=== PATIENT | male | born 1985 | race Two or more races ===

== ENCOUNTER 2020-10-03 15:07 | Outpatient (REF) | payer MEDICARE, MEDICAID, SELFPAY | END 2020-10-03 15:08 | disposition home or self-care (01) | LOC: HO.LAB 15:07 | PROVIDERS: Visit Provider Internal Medicine | DX: Z20.828 Contact with and (suspected) exposure to other viral communicable diseases (principal) | CPT/HCPCS: C9803; U0003 ==

== ENCOUNTER 2021-03-28 04:49 | Emergency (ER) | payer MEDICARE, MEDICAID, SELFPAY ==
[2021-03-28 06:02] VITALS: BP 163/95; PULSE 96; RESP 20; TEMP 36.4; O2SAT 98; BMI 37.5
--- NOTE | 2021-03-28 06:58 | ECG_ITS ---
Test Reason : CP Blood Pressure : / mmHG Vent. Rate : 099 BPM Atrial Rate : 099 BPM P-R Int : 174 ms QRS Dur : 092 ms QT Int : 358 ms P-R-T Axes : 048 009 034 degrees QTc Int : 459 ms Poor data quality, interpretation may be adversely affected Normal sinus rhythm Normal ECG No previous ECGs available Referred By: Scarlett Shelley Electronically Signed By:CLAIRE JANE MD
--- NOTE | 2021-03-28 07:22 | PC.NURSE ---
LATE ENTRY DUE TO DOWNTIME: PT LEFT AFTER EKG WAS COMPLETED. 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 ENCOURAGED TO STAY FOR EVAL. PT DECLINED.
== END 2021-03-28 07:25 | disposition left against medical advice (07) ==
PROVIDERS: Emergency Provider Emergency Medicine
DX: R06.00 Dyspnea, unspecified (principal)
CPT/HCPCS: 93005; 99282; 99283

== ENCOUNTER 2021-03-29 05:24 | Emergency (ER) | payer MEDICARE, MEDICAID, SELFPAY | END 2021-03-29 06:17 | disposition left against medical advice (07) | PROVIDERS: Emergency Provider Emergency Medicine | DX: Z02.79 Encounter for issue of other medical certificate (principal) ==

== ENCOUNTER 2021-03-29 21:13 | Emergency (ER) | payer MEDICARE, MEDICAID, SELFPAY ==
--- NOTE | 2021-03-29 21:32 | PC.NURSE ---
PT ENTERED TRIAGE ON CELLPHONE, WHEN OFF CALL SAT DOWN AND STATED TO THIS RN I WANT SOME LAB TESTS AND AN EKG THIS RN INQUIRED WHAT HE WAS CONCERNED ABOUT OR LOOKING FOR WITH THE TESTS, PT THEN AGGRESSIVELY STOOD UP, STATED BECAUSE I WANT THEM, WHAT YOU DONT DO THAT, WHATEVER I'M LEAVING PT THEN AMBULATED OUT OF ED WITH EVEN STEADY GAIT.
== END 2021-03-29 21:49 | disposition left against medical advice (07) ==
LOC: HO.ED 21:47
PROVIDERS: Emergency Provider Emergency Medicine
DX: R68.89 Other general symptoms and signs (principal)

== ENCOUNTER 2021-10-14 20:26 | Emergency (ER) | payer MEDICARE, MEDICAID, SELFPAY | END 2021-10-14 23:07 | disposition left against medical advice (07) | PROVIDERS: Emergency Provider Emergency Medicine | DX: R10.9 Unspecified abdominal pain (principal) ==

== ENCOUNTER 2022-08-23 21:31 | Emergency (ER) | payer MEDICARE, MEDICAID, SELFPAY ==
[2022-08-23 21:37] VITALS: PULSE 78; RESP 18; TEMP 36.1; O2SAT 95
--- NOTE | 2022-08-23 21:40 | PC.NURSE ---
patient refused blood pressure because the cuff hurts his arm. patient is restless in triage.
== END 2022-08-23 22:40 | disposition left against medical advice (07) ==
PROVIDERS: Emergency Provider Emergency Medicine
DX: R60.0 Localized edema (principal)
CPT/HCPCS: 99281

== ENCOUNTER 2022-12-01 12:05 | Emergency (ER) | payer MEDICARE, MEDICAID, SELFPAY ==
--- NOTE | ~2022-12-01 | CT_ITS ---
EXAMINATION: CT ANGIOGRAM OF THE CHEST WITH AND WITHOUT CONTRAST (CT PULMONARY ANGIOGRAM FOR PULMONARY EMBOLISM CLINICAL INFORMATION: Reason for Exam elevated d dimer, sob/cp COMPARISON: X-ray 12/01/2022 TECHNIQUE: Prior to contrast administration, noncontrast localization images were obtained. Subsequently, multidetector volumetric imaging was performed from the thoracic inlet to below the diaphragms following the administration of 65 mL Omnipaque 350 intravenous contrast. No contrast reaction reported Sagittal, coronal, and MIP oblique sagittal reformatted images were obtained on the CT workstation, uploaded to PACS, and reviewed. This CT examination was performed using dose optimization techniques as appropriate, variously including the following: *Automated exposure control *Adjustment of mA and/or kV according to patient size (this includes techniques or standardized protocols for targeted exams where dose is matched to indication/reason for exam; i.e. extremities or head) *Use of iterative reconstruction technique Total exam dose-length product 664 mGy-cm FINDINGS: QUALITY OF STUDY/CONTRAST BOLUS: Slightly suboptimal. PULMONARY ARTERIES: No evidence of obvious filling defects in the central or proximal segmental filling defects to suggest significant pulmonary emboli. THORACIC AORTA: No aneurysm or dissection. LUNG: Patchy airspace opacities, predominantly in the posterior aspect of bilateral lower lobes, could represent atelectasis or inflammatory/infectious process. There are scattered sub-5 mm pulmonary nodules seen. For example, 2 mm nodule lingula, 7:280; 2 mm nodule right upper lobe 2: 168. PLEURA: Trace bilateral pleural effusion. No pneumothorax. MEDIASTINUM: Normal heart size. No pericardial effusion. No hilar or mediastinal lymphadenopathy. No evidence of septal bowing or right heart strain. CORONARY ARTERY CALCIFICATION: None visualized on this study. CHEST WALL/AXILLA: No axillary or internal mammary lymphadenopathy. OSSEOUS STRUCTURES: No acute or suspicious osseous abnormality. UPPER ABDOMEN: Unremarkable. No reflux of contrast into the hepatic veins to suggest elevated right heart pressures. CT/CT angio chest PE protocol IMPRESSION: 1. Slightly suboptimal opacification of the pulmonary arteries. No evidence of significant pulmonary emboli in the central or proximal subsegmental vessels. 2. Airspace opacities in bilateral lower lobes, could represent atelectasis, inflammatory or infectious process. 3. Scattered sub-5 mm pulmonary nodules. According to the UPDATED 2017 Fleischner Society recommendations, the advised follow-up imaging for solid nodules < 6 mm is: LOW RISK PATIENT: No routine follow-up. HIGH RISK PATIENT: Optional CT at 12 months. 4. Trace bilateral pleural effusions. VTE: negative
--- NOTE | ~2022-12-01 | XR_ITS ---
EXAMINATION: XR chest 2V CLINICAL INFORMATION: Reason for Exam cp/sob COMPARISON: Chest radiograph 02/22/2019 TECHNIQUE: 2 views of the chest FINDINGS: Trace bilateral pleural effusions with streaky bibasilar airspace opacities. No pneumothorax. Normal cardiomediastinal silhouette. XR/XR chest 2V IMPRESSION: * Trace bilateral pleural effusions with streaky bibasilar airspace opacities, possibly reflective of atelectasis with superimposed developing infection or aspiration not excluded.
--- NOTE | 2022-12-01 12:26 | ED.SOB ---
HPI - SOB/Dyspnea General Chief Complaint: General Medical <ELIF Grullon - Last Filed: 12/01/22 12:30> Stated Complaint: Fast heart beat/Hole in heart? <ELIF Grullon - Last Filed: 12/01/22 12:30> Time Seen by Provider: 12/01/22 13:40 <ELIF Grullon - Last Filed: 12/01/22 12:30> Source: patient <Radhika Dejesus NP - Last Filed: 12/01/22 16:28> Mode of arrival: ambulatory <Radhika Dejesus NP - Last Filed: 12/01/22 16:28> Limitations: no limitations <Radhika Dejesus NP - Last Filed: 12/01/22 16:28> History of Present Illness HPI Narrative: 37 yo male with history of bipolar disorder Here with some difficulty breathing for the last 5 or 6 days. this is associated with cough. He was seen a doctor while he was in [place] and per patient he was diagnosed with a hole in the lung. he tells me he was not given any recommendations or treatments for this. He returns today as he has continued difficulty breathing and now has some chest pain with deep breathing and palpitations which began today. No fevers, leg swelling or leg pain. Patient flew 8 hrs home from [place] 3 days ago <Radhika Dejesus NP - Last Filed: 12/01/22 16:28> Related Data Home Medications: Previous Rx's Medication Instructions Recorded doxycycline monohydrate 100 mg 100 mg PO BID #20 tabs 12/01/22 tablet <ELIF Grullon Last Filed: 12/01/22 12:30> Allergies/Adverse Reactions: Allergies Allergy/AdvReac Type Severity Reaction Status Date / Time haloperidol [From HALDOL] Allergy Unknown UNKNOWN Verified 12/01/22 12:27 <ELIF Grullon - Last Filed: 12/01/22 12:30> Review of Systems Review of Systems: Yes all other systems are reviewed and are negative <MARY Garcia Last Filed: 12/01/22 16:28> Constitutional: Constitutional: Reports no additional constitutional complaints, Denies body ache(s), Denies chills, Denies fever(s), Denies headache(s) and Denies weakness <Radhika Dejesus RELOCATION DIRECTOR - Last Filed: 12/01/22 16:28> Eyes: Eyes: Reports no additional eye complaints and Denies change in vision <Radhika Dejesus RELOCATION DIRECTOR - Last Filed: 12/01/22 16:28> ENT: Reports system reviewed and no additional complaints, except as documented, Denies dizziness, Denies headache(s), Denies nasal congestion, Denies nasal discharge and Denies neck pain <Radhika Dejesus RELOCATION DIRECTOR - Last Filed: 12/01/22 16:28> Cardiovascular: Cardiovascular: Reports no additional cardiovascular complaints, Denies chest pain, Denies leg edema, Reports palpitations and Reports dyspnea <Radhika Dejesus RELOCATION DIRECTOR - Last Filed: 12/01/22 16:28> Respiratory: Respiratory: Reports no additional respiratory complaints, Reports cough and Reports dyspnea <Radhika Dejesus RELOCATION DIRECTOR - Last Filed: 12/01/22 16:28> Gastrointestinal: Gastrointestinal: Reports no additional gastrointestinal complaints, Denies abdominal pain, Denies diarrhea, Denies nausea and Denies vomiting <Radhika Dejesus RELOCATION DIRECTOR - Last Filed: 12/01/22 16:28> Genitourinary: Genitourinary: Denies urinary incontinence <Radhika Dejesus RELOCATION DIRECTOR - Last Filed: 12/01/22 16:28> Musculoskeletal: Musculoskeletal: Reports no additional musculoskeletal complaints, Denies back pain, Denies arthralgias, Denies joint swelling, Denies neck pain, Denies numbness and Denies tingling <Radhika Dejesus RELOCATION DIRECTOR - Last Filed: 12/01/22 16:28> Integumentary/Breasts: Skin/Breast: Reports system reviewed and no additional complaints, except as docu and Denies rash <Radhika Dejesus RELOCATION DIRECTOR - Last Filed: 12/01/22 16:28> Neurologic: Reports system reviewed and no additional complaints, except as documented, Denies Abnormal speech present, Denies dizziness, Denies headache(s), Denies numbness, Denies tingling and Denies weakness <Radhika Dejesus RELOCATION DIRECTOR - Last Filed: 12/01/22 16:28> Endocrine: Endocrine: Reports palpitations <Radhika Dejesus NP - Last Filed: 12/01/22 16:28> [facility] Past Medical History Attestation statement: The following information was validated with the patient. <Radhika Dejesus NP - Last Filed: 12/01/22 16:28> Source: old records reviewed and nursing notes reviewed <Radhika Dejesus NP - Last Filed: 12/01/22 16:28> Medical History: Medical History Bipolar 1 disorder <ELIF Grullon - Last Filed: 12/01/22 12:30> Social History Social History: Social History Alcohol intake: never Smoked in Last 30 Days: Yes Use of substances other than those prescribed or required for medical reasons: Yes Substance Use Type: Marijuana Substance Use Frequency: Occasionally Advance Directives: No Advance Directives Information Provided: Yes <ELIF Grullon - Last Filed: 12/01/22 12:30> Physical Exam Vital Signs: Vital Signs: Last Vital Signs Temp 98.3 F 12/01/22 15:47 Pulse 65 12/01/22 15:47 Resp 12 12/01/22 15:47 BP 120/83 12/01/22 15:47 Pulse Ox 98 12/01/22 15:47 O2 Del Method 12/01/22 15:47 BMI result Body Mass Index 38.1 <ELIF Grullon - Last Filed: 12/01/22 12:30> Vital Signs: Last Vital Signs Temp 98.3 F 12/01/22 15:47 Pulse 65 12/01/22 15:47 Resp 12 12/01/22 15:47 BP 120/83 12/01/22 15:47 Pulse Ox 98 12/01/22 15:47 O2 Del Method 12/01/22 15:47 BMI result Body Mass Index 38.1 <Radhika Dejesus NP - Last Filed: 12/01/22 16:28> Const: General: cooperative, healthy appearing, comfortable and no acute distress <Radhika Dejesus NP - Last Filed: 12/01/22 16:28> Orientation/consciousness: patient oriented x3 <Radhika Dejesus RELOCATION DIRECTOR - Last Filed: 12/01/22 16:28> Limitations: no limitations <Radhika Dejesus RELOCATION DIRECTOR - Last Filed: 12/01/22 16:28> HEENT: Head: Yes normal to inspection <Radhika Dejesus RELOCATION DIRECTOR - Last Filed: 12/01/22 16:28> Ears: hearing grossly normal bilaterally <Radhika Dejesus, RELOCATION DIRECTOR - Last Filed: 12/01/22 16:28> General nose exam: Normal external nose present <Radhika Dejesus RELOCATION DIRECTOR - Last Filed: 12/01/22 16:28> Face and sinus: Yes normal facial exam <Radhika Dejesus, RELOCATION DIRECTOR - Last Filed: 12/01/22 16:28> Mouth: Normal oral and palatal mucosa present <Radhika Dejesus RELOCATION DIRECTOR - Last Filed: 12/01/22 16:28> Throat: Yes posterior oropharynx normal <Radhika Dejesus, RELOCATION DIRECTOR - Last Filed: 12/01/22 16:28> Eyes: General: appearance normal, both eyes and all related structures <Radhika Djeesus RELOCATION DIRECTOR - Last Filed: 12/01/22 16:28> Pupils: Equal, round and reactive pupils present <Radhika Dejesus RELOCATION DIRECTOR - Last Filed: 12/01/22 16:28> Neck: Neck: Yes normal visual inspection <Radhika Dejesus RELOCATION DIRECTOR - Last Filed: 12/01/22 16:28> Chest: Chest palpation & inspection: normal inspection of the chest <Radhika Dejesus RELOCATION DIRECTOR - Last Filed: 12/01/22 16:28> Resp: Effort & Inspection: normal respiratory effort <Radhika Dejesus RELOCATION DIRECTOR - Last Filed: 12/01/22 16:28> Auscultation: clear to auscultation bilaterally <Radhika Deejsus RELOCATION DIRECTOR - Last Filed: 12/01/22 16:28> Cardio: Rate: regular rate <Radhika Dejesus RELOCATION DIRECTOR - Last Filed: 12/01/22 16:28> Rhythm: regular rhythm <Radhika Dejesus RELOCATION DIRECTOR - Last Filed: 12/01/22 16:28> Peripheral pulses: Peripheral pulses 2+ throughout <Radhika Dejesus RELOCATION DIRECTOR - Last Filed: 12/01/22 16:28> GI: Inspection: Yes normal to inspection <Radhika Dejesus, RELOCATION DIRECTOR - Last Filed: 12/01/22 16:28> Palpation (GI): Soft to palpation and nontender <Radhikakinsey Dejesus, RELOCATION DIRECTOR - Last Filed: 12/01/22 16:28> Auscultation: normal bowel sounds <Radhika Oleg, RELOCATION DIRECTOR - Last Filed: 12/01/22 16:28> Back/Spine/Pelvis: Thoracic/Lumbar Spine: thoracic and lumbar spine normal to inspection <Radhikakinsey Dejesus, RELOCATION DIRECTOR - Last Filed: 12/01/22 16:28> Skin: General skin exam: no rashes or lesions noted <Radhika Dejesus RELOCATION DIRECTOR - Last Filed: 12/01/22 16:28> Neuro: General: patient oriented x3, no focal motor deficits and normal sensation to monofilament <Radhikakinsey Dejesus, RELOCATION DIRECTOR - Last Filed: 12/01/22 16:28> Cranial nerves: Yes Equal, round and reactive pupils present <Radhikakinsey Dejesus, RELOCATION DIRECTOR - Last Filed: 12/01/22 16:28> Cognition (Neuro): normal cognition <Radhikakinsey Dejesus, RELOCATION DIRECTOR - Last Filed: 12/01/22 16:28> Speech: No Abnormal speech present <Radhikakinsey Dejesus RELOCATION DIRECTOR - Last Filed: 12/01/22 16:28> Gait exam (Neuro): Normal gait present <Radhika Dejesus, RELOCATION DIRECTOR - Last Filed: 12/01/22 16:28> Motor exam (neuro): 5/5 motor strength present throughout <Radhikakinsey Dejesus, RELOCATION DIRECTOR - Last Filed: 12/01/22 16:28> Extrem: General: Yes normal to inspection, Yes no pedal edema and Yes no calf tenderness <Radhika Dejesus RELOCATION DIRECTOR - Last Filed: 12/01/22 16:28> Course Course Course Narrative: RME-12:30PM 37yoM presenting to the ED with complaints of left Chest pain with 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 he reports he had just awoken from his sleep. Returned from [place] 3 days ago. Reports the flight was 8 hours ago. Reports that he was seen there and was diagnosed with ?a hole in my lungs?. Reports he feels the rumble and his heart when he takes a deep breath . He is not on any blood thinners. Denies drug usage. Plan: Will obtain labs, EKG, chest x-ray. Patient will go back to the waiting room to be evaluated the ED. <ELIF Grullon - Last Filed: 12/01/22 12:30> Reevaluation(s) Reevaluation #1: initial labs, EKG and chest x-ray are reassuring. However the patient D-dimer is elevated. With patient's symptoms of recent travel consider PE. CTA of the chest ordered to evaluate further <Radhika Dejesus NP - Last Filed: 12/01/22 16:28> Reevaluation #2: 1630- CTA of the chest is negative for PE. There are airspace opacities seen in bilateral lower lobes. No hypoxia or tachypnea. No fever. Labs are unremarkable. Patient may have mild pneumonia. Patient will be treated with course of antibiotics. Recommend patient follow-up with his primary care doctor to determine resolution. Reviewed worrisome signs and symptoms of when to return to the emergency room. Comfortable discharge home. <Radhika Dejesus NP - Last Filed: 12/01/22 16:28> Medications Administered Discontinued Medications Generic Name Dose Route Start Last Admin Trade Name Freq PRN Reason Stop Dose Admin Iohexol 100 ml 12/01/22 14:50 12/01/22 14:50 Iohexol 350 Mg/Ml 100 Ml Infus..Btl IV 12/01/22 14:51 65 ml ONCE ONE Administration <ELIF Grullon - Last Filed: 12/01/22 12:30> Medications Administered Discontinued Medications Generic Name Dose Route Start Last Admin Trade Name Freq PRN Reason Stop Dose Admin Iohexol 100 ml 12/01/22 14:50 12/01/22 14:50 Iohexol 350 Mg/Ml 100 Ml Infus..Btl IV 12/01/22 14:51 65 ml ONCE ONE Administration <Radhika Dejesus NP - Last Filed: 12/01/22 16:28> Medical Decision Making Medical Decision Making [facility] Narrative: 37-year-old male here with difficulty breathing for the last 5-6 days with cough now with chest pain with inspiration and palpitations noted today. Patient had recent long flights. Per patient he was evaluated in [place] for similar symptoms and was told that he had a hole in his lung. he tells me he does not trust medical care there so he flew home to the [facility]. On arrival lungs are clear. Vitals stable. Overall patient nontoxic appearing. Will obtain labs, EKG, chest x-ray, viral testing <Radhika Dejesus NP - Last Filed: 12/01/22 16:28> Differential Diagnosis Differential Diagnoses: The differential diagnosis associated with the presentation includes <Radhika Dejesus NP - Last Filed: 12/01/22 16:28> pneumonia, viral syndrome, PE less likely ACS with symptoms for many days with negative troponin/EKG <Radhika Dejesus NP - Last Filed: 12/01/22 16:28> Admission/Observation Consideration of admission/observation: Escalation of care including admission/observation considered <Radhika Dejesus NP - Last Filed: 12/01/22 16:28> Patient with imaging consistent with pneumonia. Patient is not requiring supplemental oxygen. overall non toxic appearing. He does not need to be admitted for antibiotic <Radhika Dejesus NP - Last Filed: 12/01/22 16:28> Lab Data [facility] Lab Attestation statement: I reviewed the patient's lab results. <Radhika Dejesus NP - Last Filed: 12/01/22 16:28> Result Diagrams: 12/01/22 13:11 12/01/22 13:11 <ELIF Grullon - Last Filed: 12/01/22 12:30> Labs: Lab Results 12/01/22 12/01/22 12/01/22 Range/Units 13:11 13:11 13:11 WBC 9.2 (4.8-10.8) X10*3/uL RBC 4.97 (4.60-5.80) X10*6/uL Hgb 15.3 (14.0-18.0) g/dl Hct 45.5 (42.0-52.0) % MCV 91.5 (80.0-98.0) fL MCH 30.8 (27.0-33.0) pg MCHC 33.6 (31.0-36.0) g/dl RDW 13.3 (11.0-16.0) % Plt Count 355 (160-400) X10*3/uL MPV 9.6 (9.4-12.4) fL Immature Gran % (Auto) 0.2 (0.0-0.4) % Neut % (Auto) 52.8 (45-73) % Lymph % (Auto) 35.5 (20-40) % [place] % (Auto) 7.9 (2-11) % Eos % (Auto) 2.9 (0-4) % Baso % (Auto) 0.7 (0-2) % Lymph # (Auto) 3.3 (1.2-4.9) X10*3/uL [place] # (Auto) 0.7 (0.1-1.2) X10*3/uL Eos # (Auto) 0.3 (0.0-0.4) X10*3/uL Baso # (Auto) 0.1 (0.0-0.2) X10*3/uL Abs Immat Gran (auto) 0.02 (0.00-0.03) X10*3/uL Absolute Neuts (auto) 4.8 (2.0-8.3) x10*3/uL Absolute Nucleated RBC 0.000 (0.0-0.012) X10*3/uL Nucleated RBC % (auto) 0.0 (0.0-0.2) /100WBC PT 13.4 H (10.0-13.1) SEC INR 1.2 H (0.9-1.1) D-Dimer High Sensitivty 502 NG/ML Sodium 140 (135-145) mmol/L Potassium 3.9 (3.3-5.1) mmol/L Chloride 105 (96-108) mmol/L Carbon Dioxide 23 (22-29) mmol/L Anion Gap 16 (12-20) BUN 10 (9-16) mg/dL Creatinine 1.10 (0.5-1.4) mg/dL Estim Creat Clear Calc 136.5 Estimated GFR > 60 Random Glucose 103 (60-115) mg/dL Calcium 9.6 (8.4-10.2) mg/dL Magnesium 2.2 (1.6-2.6) mg/dL Total Bilirubin 1.0 (0.0-1.0) mg/dL AST 22 (5-37) U/L ALT 14 (0-40) U/L Alkaline Phosphatase 48 (39-117) U/L Troponin I High Sens (<3.5-35.0) ng/L B-Natriuretic Peptide (<100) pg/mL Total Protein 6.9 (6.5-8.0) g/dL Albumin 4.0 (3.5-5.0) g/dL Urine Opiates Screen (Not Detect) Urine Fentanyl Screen (Not Detect) Ur Barbiturates Screen (Not Detect) Ur Phencyclidine Scrn (Not Detect) Ur Amphetamines Screen (Not Detect) U Benzodiazepines Scrn (Not Detect) Urine Cocaine Screen (Not Detect) U Marijuana (THC) Screen (Not Detect) Ethyl Alcohol < 10 mg/dL Influenza Type A (PCR) (Negative) Influenza Type B (PCR) (Negative) RSV RNA Qual (PCR) (Negative) SARS-CoV-2 RNA (RT-PCR) (Negative) 12/01/22 12/01/22 12/01/22 Range/Units 13:11 13:11 13:11 WBC (4.8-10.8) X10*3/uL RBC (4.60-5.80) X10*6/uL Hgb (14.0-18.0) g/dl Hct (42.0-52.0) % MCV (80.0-98.0) fL MCH (27.0-33.0) pg MCHC (31.0-36.0) g/dl RDW (11.0-16.0) % Plt Count (160-400) X10*3/uL MPV (9.4-12.4) fL Immature Gran % (Auto) (0.0-0.4) % Neut % (Auto) (45-73) % Lymph % (Auto) (20-40) % [place] % (Auto) (2-11) % Eos % (Auto) (0-4) % Baso % (Auto) (0-2) % Lymph # (Auto) (1.2-4.9) X10*3/uL [place] # (Auto) (0.1-1.2) X10*3/uL Eos # (Auto) (0.0-0.4) X10*3/uL Baso # (Auto) (0.0-0.2) X10*3/uL Abs Immat Gran (auto) (0.00-0.03) X10*3/uL Absolute Neuts (auto) (2.0-8.3) x10*3/uL Absolute Nucleated RBC (0.0-0.012) X10*3/uL Nucleated RBC % (auto) (0.0-0.2) /100WBC PT (10.0-13.1) SEC INR (0.9-1.1) D-Dimer High Sensitivty NG/ML Sodium (135-145) mmol/L Potassium (3.3-5.1) mmol/L Chloride (96-108) mmol/L Carbon Dioxide (22-29) mmol/L Anion Gap (12-20) BUN (9-16) mg/dL Creatinine (0.5-1.4) mg/dL Estim Creat Clear Calc Estimated GFR Random Glucose (60-115) mg/dL Calcium (8.4-10.2) mg/dL Magnesium (1.6-2.6) mg/dL Total Bilirubin (0.0-1.0) mg/dL AST (5-37) U/L ALT (0-40) U/L Alkaline Phosphatase (39-117) U/L Troponin I High Sens < 3.5 (<3.5-35.0) ng/L B-Natriuretic Peptide < 10 (<100) pg/mL Total Protein (6.5-8.0) g/dL Albumin (3.5-5.0) g/dL Urine Opiates Screen (Not Detect) Urine Fentanyl Screen (Not Detect) Ur Barbiturates Screen (Not Detect) Ur Phencyclidine Scrn (Not Detect) Ur Amphetamines Screen (Not Detect) U Benzodiazepines Scrn (Not Detect) Urine Cocaine Screen (Not Detect) U Marijuana (THC) Screen (Not Detect) Ethyl Alcohol mg/dL Influenza Type A (PCR) NEGATIVE (Negative) Influenza Type B (PCR) NEGATIVE (Negative) RSV RNA Qual (PCR) NEGATIVE (Negative) SARS-CoV-2 RNA (RT-PCR) NEGATIVE (Negative) 12/01/22 12/01/22 Range/Units 13:11 14:07 WBC (4.8-10.8) X10*3/uL RBC (4.60-5.80) X10*6/uL Hgb (14.0-18.0) g/dl Hct (42.0-52.0) % MCV (80.0-98.0) fL MCH (27.0-33.0) pg MCHC (31.0-36.0) g/dl RDW (11.0-16.0) % Plt Count (160-400) X10*3/uL MPV (9.4-12.4) fL Immature Gran % (Auto) (0.0-0.4) % Neut % (Auto) (45-73) % Lymph % (Auto) (20-40) % [place] % (Auto) (2-11) % Eos % (Auto) (0-4) % Baso % (Auto) (0-2) % Lymph # (Auto) (1.2-4.9) X10*3/uL [place] # (Auto) (0.1-1.2) X10*3/uL Eos # (Auto) (0.0-0.4) X10*3/uL Baso # (Auto) (0.0-0.2) X10*3/uL Abs Immat Gran (auto) (0.00-0.03) X10*3/uL Absolute Neuts (auto) (2.0-8.3) x10*3/uL Absolute Nucleated RBC (0.0-0.012) X10*3/uL Nucleated RBC % (auto) (0.0-0.2) /100WBC PT (10.0-13.1) SEC INR (0.9-1.1) D-Dimer High Sensitivty NG/ML Sodium (135-145) mmol/L Potassium (3.3-5.1) mmol/L Chloride (96-108) mmol/L Carbon Dioxide (22-29) mmol/L Anion Gap (12-20) BUN (9-16) mg/dL Creatinine (0.5-1.4) mg/dL Estim Creat Clear Calc Estimated GFR Random Glucose (60-115) mg/dL Calcium (8.4-10.2) mg/dL Magnesium (1.6-2.6) mg/dL Total Bilirubin (0.0-1.0) mg/dL AST (5-37) U/L ALT (0-40) U/L Alkaline Phosphatase (39-117) U/L Troponin I High Sens (<3.5-35.0) ng/L B-Natriuretic Peptide (<100) pg/mL Total Protein (6.5-8.0) g/dL Albumin (3.5-5.0) g/dL Urine Opiates Screen Not Detected (Not Detect) Urine Fentanyl Screen Not Detected (Not Detect) Ur Barbiturates Screen Not Detected (Not Detect) Ur Phencyclidine Scrn Not Detected (Not Detect) Ur Amphetamines Screen Not Detected (Not Detect) U Benzodiazepines Scrn Not Detected (Not Detect) Urine Cocaine Screen POSITIVE H (Not Detect) U Marijuana (THC) Screen POSITIVE H (Not Detect) Ethyl Alcohol Cancelled mg/dL Influenza Type A (PCR) (Negative) Influenza Type B (PCR) (Negative) RSV RNA Qual (PCR) (Negative) SARS-CoV-2 RNA (RT-PCR) (Negative) <ELIF Grullon - Last Filed: 12/01/22 12:30> Lab Results 12/01/22 12/01/22 12/01/22 Range/Units 13:11 13:11 13:11 WBC 9.2 (4.8-10.8) X10*3/uL RBC 4.97 (4.60-5.80) X10*6/uL Hgb 15.3 (14.0-18.0) g/dl Hct 45.5 (42.0-52.0) % MCV 91.5 (80.0-98.0) fL MCH 30.8 (27.0-33.0) pg MCHC 33.6 (31.0-36.0) g/dl RDW 13.3 (11.0-16.0) % Plt Count 355 (160-400) X10*3/uL MPV 9.6 (9.4-12.4) fL Immature Gran % (Auto) 0.2 (0.0-0.4) % Neut % (Auto) 52.8 (45-73) % Lymph % (Auto) 35.5 (20-40) % [place] % (Auto) 7.9 (2-11) % Eos % (Auto) 2.9 (0-4) % Baso % (Auto) 0.7 (0-2) % Lymph # (Auto) 3.3 (1.2-4.9) X10*3/uL [place] # (Auto) 0.7 (0.1-1.2) X10*3/uL Eos # (Auto) 0.3 (0.0-0.4) X10*3/uL Baso # (Auto) 0.1 (0.0-0.2) X10*3/uL Abs Immat Gran (auto) 0.02 (0.00-0.03) X10*3/uL Absolute Neuts (auto) 4.8 (2.0-8.3) x10*3/uL Absolute Nucleated RBC 0.000 (0.0-0.012) X10*3/uL Nucleated RBC % (auto) 0.0 (0.0-0.2) /100WBC PT 13.4 H (10.0-13.1) SEC INR 1.2 H (0.9-1.1) D-Dimer High Sensitivty 502 NG/ML Sodium 140 (135-145) mmol/L Potassium 3.9 (3.3-5.1) mmol/L Chloride 105 (96-108) mmol/L Carbon Dioxide 23 (22-29) mmol/L Anion Gap 16 (12-20) BUN 10 (9-16) mg/dL Creatinine 1.10 (0.5-1.4) mg/dL Estim Creat Clear Calc 136.5 Estimated GFR > 60 Random Glucose 103 (60-115) mg/dL Calcium 9.6 (8.4-10.2) mg/dL Magnesium 2.2 (1.6-2.6) mg/dL Total Bilirubin 1.0 (0.0-1.0) mg/dL AST 22 (5-37) U/L ALT 14 (0-40) U/L Alkaline Phosphatase 48 (39-117) U/L Troponin I High Sens (<3.5-35.0) ng/L B-Natriuretic Peptide (<100) pg/mL Total Protein 6.9 (6.5-8.0) g/dL Albumin 4.0 (3.5-5.0) g/dL Urine Opiates Screen (Not Detect) Urine Fentanyl Screen (Not Detect) Ur Barbiturates Screen (Not Detect) Ur Phencyclidine Scrn (Not Detect) Ur Amphetamines Screen (Not Detect) U Benzodiazepines Scrn (Not Detect) Urine Cocaine Screen (Not Detect) U Marijuana (THC) Screen (Not Detect) Ethyl Alcohol < 10 mg/dL Influenza Type A (PCR) (Negative) Influenza Type B (PCR) (Negative) RSV RNA Qual (PCR) (Negative) SARS-CoV-2 RNA (RT-PCR) (Negative) 12/01/22 12/01/22 12/01/22 Range/Units 13:11 13:11 13:11 WBC (4.8-10.8) X10*3/uL RBC (4.60-5.80) X10*6/uL Hgb (14.0-18.0) g/dl Hct (42.0-52.0) % MCV (80.0-98.0) fL MCH (27.0-33.0) pg MCHC (31.0-36.0) g/dl RDW (11.0-16.0) % Plt Count (160-400) X10*3/uL MPV (9.4-12.4) fL Immature Gran % (Auto) (0.0-0.4) % Neut % (Auto) (45-73) % Lymph % (Auto) (20-40) % [place] % (Auto) (2-11) % Eos % (Auto) (0-4) % Baso % (Auto) (0-2) % Lymph # (Auto) (1.2-4.9) X10*3/uL [place] # (Auto) (0.1-1.2) X10*3/uL Eos # (Auto) (0.0-0.4) X10*3/uL Baso # (Auto) (0.0-0.2) X10*3/uL Abs Immat Gran (auto) (0.00-0.03) X10*3/uL Absolute Neuts (auto) (2.0-8.3) x10*3/uL Absolute Nucleated RBC (0.0-0.012) X10*3/uL Nucleated RBC % (auto) (0.0-0.2) /100WBC PT (10.0-13.1) SEC INR (0.9-1.1) D-Dimer High Sensitivty NG/ML Sodium (135-145) mmol/L Potassium (3.3-5.1) mmol/L Chloride (96-108) mmol/L Carbon Dioxide (22-29) mmol/L Anion Gap (12-20) BUN (9-16) mg/dL Creatinine (0.5-1.4) mg/dL Estim Creat Clear Calc Estimated GFR Random Glucose (60-115) mg/dL Calcium (8.4-10.2) mg/dL Magnesium (1.6-2.6) mg/dL Total Bilirubin (0.0-1.0) mg/dL AST (5-37) U/L ALT (0-40) U/L Alkaline Phosphatase (39-117) U/L Troponin I High Sens < 3.5 (<3.5-35.0) ng/L B-Natriuretic Peptide < 10 (<100) pg/mL Total Protein (6.5-8.0) g/dL Albumin (3.5-5.0) g/dL Urine Opiates Screen (Not Detect) Urine Fentanyl Screen (Not Detect) Ur Barbiturates Screen (Not Detect) Ur Phencyclidine Scrn (Not Detect) Ur Amphetamines Screen (Not Detect) U Benzodiazepines Scrn (Not Detect) Urine Cocaine Screen (Not Detect) U Marijuana (THC) Screen (Not Detect) Ethyl Alcohol mg/dL Influenza Type A (PCR) NEGATIVE (Negative) Influenza Type B (PCR) NEGATIVE (Negative) RSV RNA Qual (PCR) NEGATIVE (Negative) SARS-CoV-2 RNA (RT-PCR) NEGATIVE (Negative) 12/01/22 12/01/22 Range/Units 13:11 14:07 WBC (4.8-10.8) X10*3/uL RBC (4.60-5.80) X10*6/uL Hgb (14.0-18.0) g/dl Hct (42.0-52.0) % MCV (80.0-98.0) fL MCH (27.0-33.0) pg MCHC (31.0-36.0) g/dl RDW (11.0-16.0) % Plt Count (160-400) X10*3/uL MPV (9.4-12.4) fL Immature Gran % (Auto) (0.0-0.4) % Neut % (Auto) (45-73) % Lymph % (Auto) (20-40) % [place] % (Auto) (2-11) % Eos % (Auto) (0-4) % Baso % (Auto) (0-2) % Lymph # (Auto) (1.2-4.9) X10*3/uL [place] # (Auto) (0.1-1.2) X10*3/uL Eos # (Auto) (0.0-0.4) X10*3/uL Baso # (Auto) (0.0-0.2) X10*3/uL Abs Immat Gran (auto) (0.00-0.03) X10*3/uL Absolute Neuts (auto) (2.0-8.3) x10*3/uL Absolute Nucleated RBC (0.0-0.012) X10*3/uL Nucleated RBC % (auto) (0.0-0.2) /100WBC PT (10.0-13.1) SEC INR (0.9-1.1) D-Dimer High Sensitivty NG/ML Sodium (135-145) mmol/L Potassium (3.3-5.1) mmol/L Chloride (96-108) mmol/L Carbon Dioxide (22-29) mmol/L Anion Gap (12-20) BUN (9-16) mg/dL Creatinine (0.5-1.4) mg/dL Estim Creat Clear Calc Estimated GFR Random Glucose (60-115) mg/dL Calcium (8.4-10.2) mg/dL Magnesium (1.6-2.6) mg/dL Total Bilirubin (0.0-1.0) mg/dL AST (5-37) U/L ALT (0-40) U/L Alkaline Phosphatase (39-117) U/L Troponin I High Sens (<3.5-35.0) ng/L B-Natriuretic Peptide (<100) pg/mL Total Protein (6.5-8.0) g/dL Albumin (3.5-5.0) g/dL Urine Opiates Screen Not Detected (Not Detect) Urine Fentanyl Screen Not Detected (Not Detect) Ur Barbiturates Screen Not Detected (Not Detect) Ur Phencyclidine Scrn Not Detected (Not Detect) Ur Amphetamines Screen Not Detected (Not Detect) U Benzodiazepines Scrn Not Detected (Not Detect) Urine Cocaine Screen POSITIVE H (Not Detect) U Marijuana (THC) Screen POSITIVE H (Not Detect) Ethyl Alcohol Cancelled mg/dL Influenza Type A (PCR) (Negative) Influenza Type B (PCR) (Negative) RSV RNA Qual (PCR) (Negative) SARS-CoV-2 RNA (RT-PCR) (Negative) <Radhika Dejesus NP - Last Filed: 12/01/22 16:28> Independent Interpretation I performed an independent interpretation of an: Plain X-Ray and CT Scan <Radhika Dejesus NP - Last Filed: 12/01/22 16:28> Interpretation: I independently reviewed the chest x-ray and agree with radiologist report independently reviewed the EKG which shows normal sinus rhythm with a rate of 73, normal [place], normal QRS, normal QT <Radhika Dejesus NP - Last Filed: 12/01/22 16:28> Radiology Impression Discussion of test interpretation with radiology: I have reviewed the radiologist's reading. <Radhika Dejesus NP - Last Filed: 12/01/22 16:28> Radiologist Impression: [address] [address] XRay Report Signed Patient: Stephani Longo MR#: [id number] : 1985 Acct:[id number] Age/Sex: 37 / M ADM Date: 12/01/22 Loc: .ED Attending Dr: Ordering Physician: Dipti Thorpe Date of Service: 12/01/22 Procedure(s): XR chest 2V Accession Number(s): [id number] cc: Dipti Thorpe~ EXAMINATION: XR chest 2V CLINICAL INFORMATION: Reason for Exam cp/sob COMPARISON: Chest radiograph? 02/22/2019 TECHNIQUE: 2 views of the chest FINDINGS: Trace bilateral pleural effusions with streaky bibasilar airspace opacities. No pneumothorax. Normal cardiomediastinal silhouette. XR/XR chest 2V IMPRESSION: ? *? Trace bilateral pleural effusions with streaky bibasilar airspace opacities, possibly reflective of atelectasis with superimposed developing infection or aspiration not excluded. ? FINDINGS: QUALITY OF STUDY/CONTRAST BOLUS: Slightly suboptimal. PULMONARY ARTERIES: No evidence of obvious filling defects in the central or proximal segmental filling defects to suggest significant pulmonary emboli. THORACIC AORTA: No aneurysm or dissection. LUNG: Patchy airspace opacities, predominantly in the posterior aspect of bilateral lower lobes, could represent atelectasis or inflammatory/infectious process. There are scattered sub-5 mm pulmonary nodules seen. For example, 2 mm nodule lingula, 7:280; 2 mm nodule right upper lobe 2: 168. PLEURA: Trace bilateral pleural effusion. No pneumothorax. MEDIASTINUM: Normal heart size.? No pericardial effusion.? No hilar or mediastinal lymphadenopathy.? No evidence of septal bowing or right heart strain. CORONARY ARTERY CALCIFICATION: None visualized on this study. CHEST WALL/AXILLA: No axillary or internal mammary lymphadenopathy. OSSEOUS STRUCTURES: No acute or suspicious osseous abnormality.? UPPER ABDOMEN: Unremarkable.? No reflux of contrast into the hepatic veins to suggest elevated right heart pressures. CT/CT angio chest PE protocol IMPRESSION: ? 1. Slightly suboptimal opacification of the pulmonary arteries. No evidence of significant pulmonary emboli in the central or proximal subsegmental vessels. ? 2. Airspace opacities in bilateral lower lobes, could represent atelectasis, inflammatory or infectious process. ? 3. Scattered sub-5 mm pulmonary nodules. According to the UPDATED 2017 Fleischner Society recommendations, the advised follow-up imaging for solid nodules < 6 mm is: ?? LOW RISK PATIENT: No routine follow-up. ?? HIGH RISK PATIENT: Optional CT at 12 months. ? 4. Trace bilateral pleural effusions. <Radhika Dejesus NP - Last Filed: 12/01/22 16:28> Independent Historian Clinical information obtained from an independent historian. History obtained from or confirmed by: Spouse <Radhika Dejesus NP - Last Filed: 12/01/22 16:28> External Record Review External record reviewed: Outpatient record <Radhika Dejesus NP - Last Filed: 12/01/22 16:28> able to review outpatient records from [facility] that patient had on his phone. Patient had labs which showed elevated inflammatory markers and D-dimer w/ recommendations to r/o PE, cardiac causes <Radhika Dejesus NP - Last Filed: 12/01/22 16:28> Discharge Plan Discharge Clinical Impression: Pneumonia <ELIF Grullon - Last Filed: 12/01/22 12:30> Patient Disposition: Home, Self-Care <ELIF Grullon - Last Filed: 12/01/22 12:30> Instructions: Community Acquired Pneumonia (ED) <ELIF Grullon - Last Filed: 12/01/22 12:30> Additional Instructions: Take the antibiotics as prescribed follow-up with primary care doctor ever finishing the antibiotics to make sure the clear the infection. You need to have a repeat x-ray after done with the antibiotics which will be ordered by her primary care doctor Your additional EKG, labs all looked reassuring. Your COVID test was negative <ELIF Grullon - Last Filed: 12/01/22 12:30> Prescriptions: New doxycycline monohydrate 100 mg tablet 100 mg PO BID Qty: 20 0RF <ELIF Grullon - Last Filed: 12/01/22 12:30> Referrals: Physician,Unknown J [Primary Care Provider] - 1 week <ELIF Grullon - Last Filed: 12/01/22 12:30> Interventions: ED Discharge Assessment Last Done: 12/01/22 16:06 <ELIF Grullon - Last Filed: 12/01/22 12:30> Discharge Date/Time: 12/01/22 16:07 <ELIF Grullon - Last Filed: 12/01/22 12:30>
[2022-12-01 12:27] VITALS: BP 141/102; PULSE 78; RESP 20; TEMP 36.6; O2SAT 98; BMI 38.1
--- NOTE | 2022-12-01 12:28 | ECG_ITS ---
Test Reason : tachycardia Blood Pressure : / mmHG Vent. Rate : 073 BPM Atrial Rate : 073 BPM P-R Int : 176 ms QRS Dur : 092 ms QT Int : 398 ms P-R-T Axes : 014 028 019 degrees QTc Int : 438 ms Normal sinus rhythm Normal ECG When compared with ECG of 28-MAR-2021 05:20, No significant changes seen Referred By: Dipti Thorpe Electronically Signed By:Ba Tenorio
[2022-12-01 13:17] LABS: MANUAL DIFF FLAG NO
[2022-12-01 13:18] LABS: Basophils Absolute Auto 0.1 X10*3/uL (0.0-0.2); Basophils Percent Auto 0.7 % (0-2); Eosinophils Absolute Auto 0.3 X10*3/uL (0.0-0.4); Eosinophils Percent Auto 2.9 % (0-4); Hematocrit 45.5 % (42.0-52.0); Hemoglobin 15.3 g/dl (14.0-18.0); Imm Gran Abs Auto 0.02 X10*3/uL (0.00-0.03); Imm Gran Pct Auto 0.2 % (0.0-0.4); Lymphocytes Absolute Auto 3.3 X10*3/uL (1.2-4.9); Lymphocytes Percent Auto 35.5 % (20-40); Mean Corpuscular HGB Conc 33.6 g/dl (31.0-36.0); Mean Corpuscular Hemoglobin 30.8 pg (27.0-33.0); Mean Corpuscular Volume 91.5 fL (80.0-98.0); Mean Platelet Volume 9.6 fL (9.4-12.4); Monocytes Absolute Auto 0.7 X10*3/uL (0.1-1.2); Monocytes Percent Auto 7.9 % (2-11); Neutrophils Absolute Auto 4.8 x10*3/uL (2.0-8.3); Neutrophils Percent Auto 52.8 % (45-73); Platelet Count 355 X10*3/uL (160-400); Red Blood Count 4.97 X10*6/uL (4.60-5.80); Red Cell Distribution Width 13.3 % (11.0-16.0); White Blood Count 9.2 X10*3/uL (4.8-10.8)
[2022-12-01 13:28] LABS: INTERNATIONAL NORM RATIO 1.2 (0.9-1.1); Prothrombin Time 13.4 SEC (10.0-13.1)
[2022-12-01 13:42] LABS: B Type Natriuretic Peptide < 10 pg/mL (<100)
[2022-12-01 13:43] LABS: Troponin-I High Sensitivity < 3.5 ng/L (<3.5-35.0)
[2022-12-01 13:46] LABS: Alanine Aminotransferase 14 U/L (0-40); Alkaline Phosphatase 48 U/L (39-117); Anion Gap 16 (12-20); Aspartate Amino Transferase 22 U/L (5-37); Blood Urea Nitrogen 10 mg/dL (9-16); Calcium 9.6 mg/dL (8.4-10.2); Carbon Dioxide 23 mmol/L (22-29); Chloride 105 mmol/L (96-108); Creatinine Clr Calc Pharmacy 136.5; Estimated Glomerular Filt Rate > 60; Ethanol < 10 mg/dL; Glucose Random 103 mg/dL (60-115); Magnesium 2.2 mg/dL (1.6-2.6); Potassium 3.9 mmol/L (3.3-5.1); Sodium 140 mmol/L (135-145); Total Protein 6.9 g/dL (6.5-8.0)
[2022-12-01 13:49] VITALS: BP 123/85; PULSE 74; RESP 20; TEMP 36.6; O2SAT 96
[2022-12-01 13:55] LABS: Influenza A PCR NEGATIVE (Negative); Influenza B PCR NEGATIVE (Negative); Resp Syncy Virus RNA Qual PCR NEGATIVE (Negative); SARS COV2 PCR INHOUSE NEGATIVE (Negative)
[2022-12-01 13:59] LABS: D Dimer High Sensitivity 502 NG/ML
[2022-12-01 14:14] VITALS: BP 123/85; PULSE 68; RESP 16; TEMP 36.4; O2SAT 98
--- NOTE | 2022-12-01 14:15 | PC.NURSE ---
patient a&ox3, c/o 06/29 pain in chest with breathing only, nurse monitoring applied sinus mary 60s, vss, ekg previously performed/labs done in triage, urine obtained, iv inserted for ct scan, will continue to monitor
[2022-12-01 14:24] LABS: Amphetamine Screen Urine Not Detected (Not Detect); Barbiturates, Urine Not Detected (Not Detect); Benzodiazepines Screen Urine Not Detected (Not Detect); Cannabinoid Screen Urine POSITIVE (Not Detect); Cocaine Screen Urine POSITIVE (Not Detect); Fentanyl, urine Not Detected (Not Detect); Opiate Screen Urine Not Detected (Not Detect); Phencyclidine Screen Urine Not Detected (Not Detect)
[2022-12-01] MEDS: iohexoL 350 MG/ML 100 ML INFUS..BTL IV (14:50)
[2022-12-01 15:47] VITALS: BP 120/83; PULSE 65; RESP 12; TEMP 36.8; O2SAT 98
== END 2022-12-01 16:07 | disposition home or self-care (01) ==
PROVIDERS: Nurse Practitioner Family; Physician Assistant Medical; Emergency Provider Emergency Medicine Emergency Medical Services
DX: J18.9 Pneumonia, unspecified organism (principal); R07.89 Other chest pain; R06.02 Shortness of breath; Z20.822 Contact with and (suspected) exposure to COVID-19; Z20.828 Contact with and (suspected) exposure to other viral communicable diseases; Z79.899 Other long term (current) drug therapy
CPT/HCPCS: 0241U; 36415; 71046; 71275; 80053; 80307; 82077; 83735; 83880; 84484; 85025; 85379; 85610; 93005; 99285; Q9967

== ENCOUNTER 2023-03-01 04:11 | Inpatient (IN) | payer MEDICARE, MEDICAID, SELFPAY ==
--- NOTE | 2023-03-01 | ECG_ITS ---
Test Reason : Asses QT Blood Pressure : / mmHG Vent. Rate : 047 BPM Atrial Rate : 047 BPM P-R Int : 190 ms QRS Dur : 104 ms QT Int : 464 ms P-R-T Axes : 031 044 036 degrees QTc Int : 410 ms Sinus bradycardia Nonspecific ST and T wave abnormality Abnormal ECG When compared with ECG of 01-DEC-2022 12:56, Vent. rate has decreased BY 26 BPM Criteria for Septal infarct are no longer Present Referred By: Wally Santos Electronically Signed By:LEXIS CALDERON
[2023-03-01 04:18] VITALS: BP 131/75; PULSE 77; RESP 16; TEMP 36.8; O2SAT 98; BMI 41.2
[2023-03-01 04:58] LABS: COVID-19 Test Negative (Negative); IDNOW Serial# 08D9AD1C
--- NOTE | 2023-03-01 05:01 | ED_ITS ---
HPI - Psych General Chief Complaint: Psychiatric Symptoms Stated Complaint: ?bipolar, no meds in 3 weeks Time Seen by Provider: 03/01/23 04:29 History of Present Illness HPI Narrative: Patient is a 37-year-old male sent today with having thoughts of depression. Patient denies any suicidal homicidal ideation. Has a history of being on Depakote. Has not taken medication. Patient denies any fever chills denies any recreational drug use denies any alcohol use. Wants to talk to someone. Patient from home. Related Data Home Medications Medication Instructions Recorded Confirmed aripiprazole 15 mg tablet 15 mg PO DAILY 03/01/23 03/01/23 divalproex 250 mg tablet,delayed 1,250 mg PO QAM 03/01/23 03/01/23 release divalproex 250 mg tablet,delayed 1,500 mg PO BEDTIME 03/01/23 03/01/23 release Allergies Allergy/AdvReac Type Severity Reaction Status Date / Time haloperidol [From HALDOL] Allergy Unknown UNKNOWN Verified 12/01/22 12:27 Review of Systems Review of Systems: No suicidal homicidal ideation Positive depression Yes all other systems are reviewed and are negative [facility] Past Medical History Attestation statement: The following information was validated with the patient. Medical History Bipolar 1 disorder Social History Social History Alcohol intake: never Substance Use Type: Marijuana Physical Exam Vital Signs: Vital Signs: Last Vital Signs Temp 98.2 F 03/01/23 04:18 Pulse 77 03/01/23 04:18 Resp 16 03/01/23 04:18 BP 131/75 03/01/23 04:18 Pulse Ox 98 03/01/23 04:18 O2 Del Method Room Air 03/01/23 04:18 BMI result Body Mass Index 41.2 Appearance: Alert. Oriented X3. No acute distress. Eyes: Pupils equal, round and reactive to light. ENT: Pharynx normal. Neck: Normal inspection. Neck supple. No lymph nodes noted. No crepitus CVS: Normal heart rate and rhythm. Pulses normal. Normal S1 and S2 Respiratory: No respiratory distress. Breath sounds normal. No Wheezing. No rales Abdomen: Soft and nontender. No rigidity. No distention. good BS x4 Skin: Skin warm and dry. Normal skin color. Normal skin turgor. Extremities: No lower extremity edema. Neurovascular intact to all extremities. No Lacerations. No Rash Neuro: Oriented X 3. No motor deficit. No sensory deficit. Moving all extermities. No slurred speech. Cranial nerve intact Medical Decision Making Medical Decision Making MDM Narrative: Well-appearing not acute distress. Patient not suicidal homicidal. [place] very depressed. Will get crisis to evaluate patient. Differential Diagnosis Differential Diagnoses: The differential diagnosis associated with the presentation includes Depression, bipolar, polysubstance abuse Lab Data Labs: Lab Results 03/01/23 Range/Units 04:25 COVID-19 ([facility]) Negative (Negative) COVID-19 Clin Com See Note Discharge Plan Discharge Clinical Impression: Depression, Bipolar disorder Patient Disposition: Still a Patient Prescriptions: No Action divalproex 250 mg tablet,delayed release (DR/EC) 1,250 mg PO QAM aripiprazole 15 mg tablet 15 mg PO DAILY divalproex 250 mg tablet,delayed release (DR/EC) 1,500 mg PO BEDTIME
[2023-03-01 05:43] LABS: Basophils Percent Auto 0.4 % (0-2); Eosinophils Absolute Auto 0.5 X10*3/uL (0.0-0.4); Eosinophils Percent Auto 6.6 % (0-4); Hematocrit 43.2 % (42.0-52.0); Hemoglobin 15.2 g/dl (14.0-18.0); Imm Gran Abs Auto 0.02 X10*3/uL (0.00-0.03); Imm Gran Pct Auto 0.3 % (0.0-0.4); Lymphocytes Absolute Auto 2.8 X10*3/uL (1.2-4.9); Lymphocytes Percent Auto 37.9 % (20-40); MANUAL DIFF FLAG NO; Mean Corpuscular HGB Conc 35.2 g/dl (31.0-36.0); Mean Corpuscular Hemoglobin 31.1 pg (27.0-33.0); Mean Corpuscular Volume 88.5 fL (80.0-98.0); Mean Platelet Volume 10.4 fL (9.4-12.4); Monocytes Absolute Auto 0.6 X10*3/uL (0.1-1.2); Monocytes Percent Auto 7.5 % (2-11); Neutrophils Absolute Auto 3.5 x10*3/uL (2.0-8.3); Neutrophils Percent Auto 47.3 % (45-73); Platelet Count 359 X10*3/uL (160-400); Red Blood Count 4.88 X10*6/uL (4.60-5.80); Red Cell Distribution Width 13.6 % (11.0-16.0); White Blood Count 7.3 X10*3/uL (4.8-10.8)
--- NOTE | 2023-03-01 05:57 | PC.NURSE ---
Patient is in bed appears sleeping, no distress observed/reported, behavior pleasant and non concerning, care consult ordered pending evaluation, urine pending, blood draw completed, med rec completed/pending provider's approval, VSS, will continue to monitor.
[2023-03-01 06:01] LABS: Valproate < 12.5 mcg/mL (50.0-100.0)
[2023-03-01 06:03] LABS: Alanine Aminotransferase 19 U/L (0-40); Albumin Level 3.9 g/dL (3.5-5.0); Alkaline Phosphatase 62 U/L (39-117); Anion Gap 12 (12-20); Aspartate Amino Transferase 27 U/L (5-37); Bilirubin Total 1.5 mg/dL (0.0-1.0); Blood Urea Nitrogen 8 mg/dL (9-16); Calcium 9.3 mg/dL (8.4-10.2); Carbon Dioxide 25 mmol/L (22-29); Chloride 105 mmol/L (96-108); Creatinine Clr Calc Pharmacy 161.4; Estimated Glomerular Filt Rate > 60; Ethanol < 10 mg/dL; Glucose Random 92 mg/dL (60-115); Potassium 3.9 mmol/L (3.3-5.1); Sodium 138 mmol/L (135-145); Total Protein 6.8 g/dL (6.5-8.0)
--- NOTE | 2023-03-01 06:57 | PC.NURSE ---
patient appears to remain asleep at present respirations are even and unlabored patient appears in no distress
--- NOTE | 2023-03-01 10:36 | PC.NURSE ---
approached client b/c t/w had seen him awake, client appears to be asleep wanted to approach client regarding taking meds
[2023-03-01] MEDS: Divalproex Sodium 250 MG TABLET.DR 1250 MG PO (11:23)
[2023-03-01] MEDS: ARIPiprazole 15 MG TABLET PO (11:23)
--- NOTE | 2023-03-01 18:03 | MHC.EDTECH ---
Patient refused to give a urine sample. Jayda Ordoñez
[2023-03-01 18:27] VITALS: BP 112/65; PULSE 59; RESP 16; TEMP 37.1; O2SAT 97
[2023-03-01 19:22] LABS: Appearance Urine Clear; Color Urine Yellow; Glucose Urine UA Negative (Negative); Leukocyte Esterase Urine Negative (Negative); Nitrite Urine Negative (Negative); PH 6.5 (5.0-9.0); Specific Gravity - Urine 1.015 (1.005-1.025); Urine Blood Negative (Negative); Urine Ketones Negative (Negative); Urine Protein Negative (Neg-Trace)
[2023-03-01 19:34] LABS: Amphetamine Screen Urine Not Detected (Not Detect); Barbiturates, Urine Not Detected (Not Detect); Benzodiazepines Screen Urine Not Detected (Not Detect); Cannabinoid Screen Urine Not Detected (Not Detect); Cocaine Screen Urine POSITIVE (Not Detect); Fentanyl, urine Not Detected (Not Detect); Opiate Screen Urine Not Detected (Not Detect); Phencyclidine Screen Urine Not Detected (Not Detect)
[2023-03-01] MEDS: Divalproex Sodium 500 MG TABLET.DR 1500 MG PO (22:23)
[2023-03-01 23:03] VITALS: BP 120/81; PULSE 78; RESP 16; TEMP 36.6; O2SAT 100
--- NOTE | 2023-03-02 06:33 | PC.ADMIT ---
Stephani is a 37 year old [place] male admitted from the POD on a CV for suicidal ideation and medication noncompliance. Per the crisis report the patient endorses that he had not taken his prescribed medications for 10 days prior to admission and he was not caring for himself. His U-tox was positive for cocaine and his Depakote level was <12.5. Patient has a long history of section 35's. His mother has a restraining order against him however reportedly she is the person who encouraged him to seek help. This law writer was unable to interview the patient secondary to him already being asleep. treatment plan was initiated. however the safety tool and consents still have not been completed
[2023-03-02 07:42] LABS: Alanine Aminotransferase 14 U/L (0-40); Albumin Level 3.3 g/dL (3.5-5.0); Alkaline Phosphatase 40 U/L (39-117); Anion Gap 13 (12-20); Aspartate Amino Transferase 17 U/L (5-37); Blood Urea Nitrogen 8 mg/dL (9-16); Calcium 8.8 mg/dL (8.4-10.2); Carbon Dioxide 24 mmol/L (22-29); Chloride 107 mmol/L (96-108); Cholesterol 129 mg/dL; Creatinine Clr Calc Pharmacy 156.6; Estimated Glomerular Filt Rate > 60; Glucose Fasting 84 mg/dL (60-99); HDL Cholesterol 27 mg/dL; LDL Cholesterol Calculated 85 mg/dl; Sodium 140 mmol/L (135-145); Total Protein 5.7 g/dL (6.5-8.0); Triglycerides 88 mg/dL
[2023-03-02] MEDS: Divalproex Sodium 250 MG TABLET.DR 1250 MG PO (08:35)
[2023-03-02] MEDS: ARIPiprazole 15 MG TABLET PO (08:36)
[2023-03-02 09:00] VITALS: BP 123/74; PULSE 68; RESP 18; TEMP 36.4; O2SAT 97
[2023-03-02 09:02] VITALS: BP 123/74; PULSE 68; RESP 18; TEMP 36.4; O2SAT 97
--- NOTE | 2023-03-02 10:24 | HO.PSYADMNOT ---
HPI Date of Service: 03/02/23 Chief Complaint: ?bipolar, no meds in 3 weeks Sources of Information: patient interviewed, chart reviewed and crisis/core team assessment reviewed HPI Subjective Notes: Conditional Voluntary Healthcare Proxy: No Guardianship: No Medical Problems Affecting Mental Status: No Narrative: 37 yo single male, reportedly homeless at this time, with history of bipolar disorder and cocaine dependence. Patient self presented to [facility] due to worsening mood, vague SI, hopelessness, depression, poor self care, and continued cocaine use. Patient has been off his psychotropics for 3 weeks. He was reportedly on Depakote and Abilify. Called pharmacy and verified last prescriptions and dosing. Patient was guarded and vague during interview. He was laying in bed, he was answering monosyllabically and had poor eye contact. Per crisis report, he has extensive substance use history and his mom has filed 4 section 35's over the past year, the last of which was in December 2022. Patient has a RO by his mom for reported theft of belongings from the house. He violated that and was in [facility] recently for 30 days. Patient denies SI/HI/AVH today. He is compliant with his medications in the hospital. Past Psychiatric History: Multiple inpatient hospitalizations including [facility] in 2019, [place], [facility]. Multiple section 35's. Medical Evaluation Reviewed: Yes [facility] Medical History Bipolar 1 disorder Family History: Bipolar disorder and schizoaffective disorder. Social History: Single, no children. Born in [place]. Moved to age 6. Parents /. Father in [place]. Has GED. On social security. On probation following release for violating RO. Substance History: Cocaine Trauma History: Deferred Diagnostics Vital Signs (24Hr): Vital Signs - 24 hr 03/01/23 18:27 03/01/23 23:03 03/02/23 09:00 Temperature 98.7 F 97.8 F 97.6 F Pulse Rate 59 78 68 Respiratory Rate 16 16 18 Blood Pressure 112/65 120/81 123/74 Pulse Oximetry 97 100 97 Oxygen Delivery Method Room Air Room Air Room Air 03/02/23 09:02 Temperature 97.6 F Pulse Rate 68 Respiratory Rate 18 Blood Pressure 123/74 Pulse Oximetry 97 Oxygen Delivery Method Room Air BMI result Body Mass Index 41.2 Labs 03/01/23 04:46 03/02/23 07:15 Labs: Laboratory Results - last 48 hr 03/01/23 03/01/23 03/01/23 04:25 04:46 04:46 WBC 7.3 RBC 4.88 Hgb 15.2 Hct 43.2 MCV 88.5 MCH 31.1 MCHC 35.2 RDW 13.6 Plt Count 359 MPV 10.4 Immature Gran % (Auto) 0.3 Neut % (Auto) 47.3 Lymph % (Auto) 37.9 [place] % (Auto) 7.5 Eos % (Auto) 6.6 H Baso % (Auto) 0.4 Lymph # (Auto) 2.8 [place] # (Auto) 0.6 Eos # (Auto) 0.5 H Baso # (Auto) 0.0 Abs Immat Gran (auto) 0.02 Absolute Neuts (auto) 3.5 Absolute Nucleated RBC 0.000 Nucleated RBC % (auto) 0.0 Sodium 138 Potassium 3.9 Chloride 105 Carbon Dioxide 25 Anion Gap 12 BUN 8 L Creatinine 0.97 Estim Creat Clear Calc 161.4 Estimated GFR > 60 Random Glucose 92 Fasting Glucose Calcium 9.3 Total Bilirubin 1.5 H AST 27 ALT 19 Alkaline Phosphatase 62 Total Protein 6.8 Albumin 3.9 Triglycerides Cholesterol LDL Cholesterol, Calc HDL Cholesterol Urine Color Urine Appearance Urine pH Ur Specific [place] Urine Protein Urine Glucose (UA) Urine Ketones Urine Blood Urine Nitrite Ur Leukocyte Esterase Urine Opiates Screen Urine Fentanyl Screen Ur Barbiturates Screen Valproic Acid Ur Phencyclidine Scrn Ur Amphetamines Screen U Benzodiazepines Scrn Urine Cocaine Screen U Marijuana (THC) Screen Ethyl Alcohol < 10 COVID-19 ([facility]) Negative COVID-19 Clin Com See Note 03/01/23 03/01/23 03/01/23 04:46 19:11 19:11 WBC RBC Hgb Hct MCV MCH MCHC RDW Plt Count MPV Immature Gran % (Auto) Neut % (Auto) Lymph % (Auto) [place] % (Auto) Eos % (Auto) Baso % (Auto) Lymph # (Auto) [place] # (Auto) Eos # (Auto) Baso # (Auto) Abs Immat Gran (auto) Absolute Neuts (auto) Absolute Nucleated RBC Nucleated RBC % (auto) Sodium Potassium Chloride Carbon Dioxide Anion Gap BUN Creatinine Estim Creat Clear Calc Estimated GFR Random Glucose Fasting Glucose Calcium Total Bilirubin AST ALT Alkaline Phosphatase Total Protein Albumin Triglycerides Cholesterol LDL Cholesterol, Calc HDL Cholesterol Urine Color Yellow Urine Appearance Clear Urine pH 6.5 Ur Specific [place] 1.015 Urine Protein Negative Urine Glucose (UA) Negative Urine Ketones Negative Urine Blood Negative Urine Nitrite Negative Ur Leukocyte Esterase Negative Urine Opiates Screen Not Detected Urine Fentanyl Screen Not Detected Ur Barbiturates Screen Not Detected Valproic Acid < 12.5 L Ur Phencyclidine Scrn Not Detected Ur Amphetamines Screen Not Detected U Benzodiazepines Scrn Not Detected Urine Cocaine Screen POSITIVE H U Marijuana (THC) Screen Not Detected Ethyl Alcohol COVID-19 ([facility]) COVID-19 [employer] Com 03/02/23 07:15 WBC RBC Hgb Hct MCV MCH MCHC RDW Plt Count MPV Immature Gran % (Auto) Neut % (Auto) Lymph % (Auto) [place] % (Auto) Eos % (Auto) Baso % (Auto) Lymph # (Auto) [place] # (Auto) Eos # (Auto) Baso # (Auto) Abs Immat Gran (auto) Absolute Neuts (auto) Absolute Nucleated RBC Nucleated RBC % (auto) Sodium 140 Potassium 4.0 Chloride 107 Carbon Dioxide 24 Anion Gap 13 BUN 8 L Creatinine 1.00 Estim Creat Clear Calc 156.6 Estimated GFR > 60 Random Glucose Fasting Glucose 84 Calcium 8.8 Total Bilirubin 1.0 AST 17 ALT 14 Alkaline Phosphatase 40 Total Protein 5.7 L Albumin 3.3 L Triglycerides 88 Cholesterol 129 LDL Cholesterol, Calc 85 HDL Cholesterol 27 Urine Color Urine Appearance Urine pH Ur Specific [place] Urine Protein Urine Glucose (UA) Urine Ketones Urine Blood Urine Nitrite Ur Leukocyte Esterase Urine Opiates Screen Urine Fentanyl Screen Ur Barbiturates Screen Valproic Acid Ur Phencyclidine Scrn Ur Amphetamines Screen U Benzodiazepines Scrn Urine Cocaine Screen U Marijuana (THC) Screen Ethyl Alcohol COVID-19 ([facility]) COVID-19 Clin Com Meds/Allergies Meds Home Medications Medication Instructions Recorded Confirmed Type aripiprazole 15 mg tablet 15 mg PO DAILY 03/01/23 03/01/23 History divalproex 250 mg tablet,delayed 1,250 mg PO QAM 03/01/23 03/01/23 History release divalproex 250 mg tablet,delayed 1,500 mg PO BEDTIME 03/01/23 03/01/23 History release Allergies Allergies Allergy/AdvReac Type Severity Reaction Status Date / Time haloperidol [From HALDOL] Allergy Unknown UNKNOWN Verified 12/01/22 12:27 Mental Status Exam Mental Status Exam Patient Appearance: Disheveled and Unkempt Patient Orientation: Person, Place, Time and Situation Level of Consciousness: Awake Patient Behavior: Guarded, Suspicious, Avoidant, Isolative and Poor Eye Contact Mood Description: Apathetic, Suspicious, Constricted and Depressed Affect Description: Apathetic, Suspicious, Constricted and Depressed Patient Cognition Impaired: No Ability to Follow Directions: Good Speech Pattern: Clear, Impoverished, Appropriate and Monotone Memory Description: Intact Hallucinations: None Delusions: Not Present Thought Process: Intact, Evasive and Slowed Thinking Thought Content: positive for Evasive and positive for Suicidal Ideation (no intent or plan. Vague. ) Depressive Symptoms: Insomnia, Changes in Appetite, Hopelessness and Thoughts of /Suicide Abnormal Motor Activity Signs and Symptoms: Psychomotor Retardation Judgement: Fair Assessment & Plan Assessment & Plan (1) Bipolar disorder: Status: Acute Code(s): F31.9 - Bipolar disorder, unspecified (2) Bipolar depression: Status: Acute Code(s): F31.9 - Bipolar disorder, unspecified Plan 37 yo male with history of reported bipolar disorder and cocaine use disorder, presents with increased depression and vague SI. He has had multiple section 35's filed by his mom as well as RO that he violated and is now on probation. He presents with non-adherence to treatment and relapse on cocaine. Admit to CV Restart medications: Depakote 1,250 mg AM and 1,500 mg HS Abilify 15 mg QD. Collaterals. Milieu and group therapy DC planning. Patient educated on: medication risk/benefits and substance abuse Informed Consent: understands Reason for continued inpatient stay Substantial Risk for: harm to self, inability to function and rapid decompensation Statement Statement: I have reviewed the history and physical and performed a pertinent examination on my patient. No changes have occurred unless specified. If the History and Physical was not performed prior to admission, the Hospitalist's service will be consulted for completing the admission physical. Time Spent With Patient Time: Total time managing care of this patient today ____ minutes.
[2023-03-02 15:53] VITALS: BP 131/74; PULSE 78
[2023-03-02] MEDS: Divalproex Sodium 500 MG TABLET.DR 1500 MG PO (19:54)
[2023-03-03 06:00] VITALS: BP 110/56; PULSE 66; RESP 16; TEMP 36.7; O2SAT 99
[2023-03-03] MEDS: ARIPiprazole 15 MG TABLET PO (08:55)
[2023-03-03] MEDS: Divalproex Sodium 250 MG TABLET.DR 1250 MG PO (08:55)
--- NOTE | 2023-03-03 08:58 | P.PNPSI_ITS ---
Subjective Subjective Date of Service: 03/03/23 Reason For Visit: ?bipolar, no meds in 3 weeks Interim History: Met with patient; discussed with team; reviewed chart Patient reports that he has started to feel better; he says prior to coming to the hospital he hardly slept at all over the past 2 weeks and now he started to sleep through the night. He says he is not quite back to his regular self yet, still with some confused thoughts but is hoping he will keep getting better. Patient reports intermittent SI but says it is much less frequent, fleeting and because of his sikhism beliefs he says he would not hurt himself and is mostly able to ignore such thoughts. Patient said he went off the medication, especially Depakote because of the weight gain it has caused; however in hindsight he says it was not worth it and from now on he will just stay on his medications and tolerate the side effect. Pro Shop Attendant and patient discussed medication management. He says he has never tried lithium before. If there is anything that would help with weight gain he would like to try it. Mental Status Exam Mental Status Exam Narrative: Pt is alert and oriented; behavior is cooperative, friendly and calm; patient is not in distress; dressed in casual attire with unkempt hair but adequate hygiene; mood is described as okay and affect congruent, a little blunted; eye contact appropriate; Speech is normal rate, volume and prosody and not pressured; no psychomotor agitation/retardation present; thought process is goal directed; Thought content is on tx; otherwise pertinent to relevant topics and without any delusional content, paranoid ideations or grandiosity; intermittent, passive SI; no HI. There is no evidence of perceptual disturbance. Denies AVH Patients insight and judgment impaired but improving Diagnostics Vital Signs (24Hr): Vital Signs - 24 hr 03/02/23 09:00 03/02/23 09:02 03/02/23 15:53 Temperature 97.6 F 97.6 F Pulse Rate 68 68 78 Respiratory Rate 18 18 Blood Pressure 123/74 123/74 131/74 Pulse Oximetry 97 97 Oxygen Delivery Method Room Air Room Air BMI result Body Mass Index 41.2 Labs 03/01/23 04:46 03/02/23 07:15 Labs: Laboratory Results - last 48 hr 03/01/23 03/01/23 03/02/23 19:11 19:11 07:15 Sodium 140 Potassium 4.0 Chloride 107 Carbon Dioxide 24 Anion Gap 13 BUN 8 L Creatinine 1.00 Estim Creat Clear Calc 156.6 Estimated GFR > 60 Fasting Glucose 84 Calcium 8.8 Total Bilirubin 1.0 AST 17 ALT 14 Alkaline Phosphatase 40 Total Protein 5.7 L Albumin 3.3 L Triglycerides 88 Cholesterol 129 LDL Cholesterol, Calc 85 HDL Cholesterol 27 Urine Color Yellow Urine Appearance Clear Urine pH 6.5 Ur Specific [place] 1.015 Urine Protein Negative Urine Glucose (UA) Negative Urine Ketones Negative Urine Blood Negative Urine Nitrite Negative Ur Leukocyte Esterase Negative Urine Opiates Screen Not Detected Urine Fentanyl Screen Not Detected Ur Barbiturates Screen Not Detected Ur Phencyclidine Scrn Not Detected Ur Amphetamines Screen Not Detected U Benzodiazepines Scrn Not Detected Urine Cocaine Screen POSITIVE H U Marijuana (THC) Screen Not Detected Medications Medications Current Medications Acetaminophen (Acetaminophen 325 Mg Tablet) 650 mg PO Q6H PRN PRN Reason: Headache/Pain Mild Scale (1-3) Al Hydroxide/Mg Hydroxide (Magnesium Hydrox/Alum Hydrox 30 Ml Oral.Susp) 30 ml PO Q6H PRN PRN Reason: Heartburn/Nausea Aripiprazole (Aripiprazole 15 Mg Tablet) 15 mg PO DAILY [facility] Last Admin: 03/02/23 08:36 Dose: 15 mg Divalproex Sodium (Divalproex Sodium 250 Mg Tablet.) 1,250 mg PO DAILY [facility] Last Admin: 03/02/23 08:35 Dose: 1,250 mg Divalproex Sodium (Divalproex Sodium 500 Mg Tablet.) 1,500 mg PO BEDTIME [facility] Last Admin: 03/02/23 19:54 Dose: 1,500 mg Hydroxyzine HCl (Hydroxyzine Hcl 25 Mg Tablet) 25 mg PO Q6H PRN PRN Reason: Anxiety Magnesium Hydroxide (Milk Of Magnesia 30 Ml Oral.Susp) 30 ml PO DAILY PRN PRN Reason: Constipation Allergies Allergies Allergy/AdvReac Type Severity Reaction Status Date / Time haloperidol [From HALDOL] Allergy Unknown UNKNOWN Verified 12/01/22 12:27 Assessment & Plan Assessment & Plan (1) Bipolar disorder: Status: Acute Code(s): F31.9 - Bipolar disorder, unspecified (2) Bipolar depression: Status: Acute Code(s): F31.9 - Bipolar disorder, unspecified Plan 37 yo male with history of reported bipolar disorder and cocaine use disorder, presents with increased depression and vague SI. He has had multiple section 35's filed by his mom as well as RO that he violated and is now on probation. He presents with non-adherence to treatment and relapse on cocaine. Hospital course: 03/03 patient starting to stabilize on restarted medications and sleeping through the night; complains about weight gain from medication but prefers this to being dysregulated is open to other options and has never tried lithium -will try to gather collateral info got of patient actually needs to be on Abilify as well; may consider changing Depakote to long-acting and once a day dosing -will address substance abuse issues Plan: CV Q 15 Continue Depakote 1,250 mg AM Continue Depakote 1,500 mg HS Continue Abilify 15 mg QD. Will get a valproic acid level and associated lab work Will get hemoglobin A1c Will explore other medication options given patient's complaint of weight gain (not sure if it is due to Depakote verse Abilify) Obtain Collaterals. Milieu and group therapy DC planning. Patient educated on: diagnosis and medication risk/benefits Informed Consent: understands Reason for continued inpatient stay Substantial Risk for: inability to function and med/psych decompensation Time Spent With Patient Time: Total time managing care of this patient today ____ minutes.
[2023-03-03 15:36] VITALS: BP 116/58; PULSE 65
[2023-03-03] MEDS: Divalproex Sodium 500 MG TABLET.DR 1500 MG PO (18:57)
[2023-03-04] MEDS: ARIPiprazole 15 MG TABLET PO (08:47)
[2023-03-04] MEDS: Divalproex Sodium 250 MG TABLET.DR 1250 MG PO (08:47)
--- NOTE | 2023-03-04 08:57 | HO.PSYCHPN ---
Subjective Subjective Date of Service: 03/04/23 Reason For Visit: ?bipolar, no meds in 3 weeks Interim History: met with patient; discussed with staff; reviewed labs pt lying in bed; typewriter assembly and parts inspector explained to pt that his Depakote level is elevated, but pt just said no! typewriter assembly and parts inspector inquired and he just said no and then put covers over his head and would not talk to typewriter assembly and parts inspector further. sleeping through the night isolating Mental Status Exam Mental Status Exam Narrative: Pt is alert and oriented; behavior is not cooperative, guarded; patient is not in distress; dressed in casual attire with unkempt hair, scruffy, but adequate hygiene; mood is described as no and affect constricted; eye contact avoidant; Speech is normal rate, volume and prosody and not pressured; no psychomotor agitation/retardation present; thought process is goal directed; Thought content is no ; intermittent, passive SI; no HI. There is no evidence of perceptual disturbance. Denies AVH Patients insight and judgment impaired Diagnostics Vital Signs (24Hr): Vital Signs - 24 hr 03/03/23 15:36 Pulse Rate 65 Blood Pressure 116/58 L BMI result Body Mass Index 41.2 Labs 03/01/23 04:46 03/02/23 07:15 Medications Medications Current Medications Acetaminophen (Acetaminophen 325 Mg Tablet) 650 mg PO Q6H PRN PRN Reason: Headache/Pain Mild Scale (1-3) Al Hydroxide/Mg Hydroxide (Magnesium Hydrox/Alum Hydrox 30 Ml Oral.Susp) 30 ml PO Q6H PRN PRN Reason: Heartburn/Nausea Aripiprazole (Aripiprazole 15 Mg Tablet) 15 mg PO DAILY [facility] Last Admin: 03/04/23 08:47 Dose: 15 mg Divalproex Sodium (Divalproex Sodium 250 Mg Tablet.) 1,250 mg PO DAILY [facility] Last Admin: 03/04/23 08:47 Dose: 1,250 mg Divalproex Sodium (Divalproex Sodium 500 Mg Tablet.) 1,500 mg PO BEDTIME [facility] Last Admin: 03/03/23 18:57 Dose: 1,500 mg Hydroxyzine HCl (Hydroxyzine Hcl 25 Mg Tablet) 25 mg PO Q6H PRN PRN Reason: Anxiety Magnesium Hydroxide (Milk Of Magnesia 30 Ml Oral.Susp) 30 ml PO DAILY PRN PRN Reason: Constipation Allergies Allergies Allergy/AdvReac Type Severity Reaction Status Date / Time haloperidol [From HALDOL] Allergy Unknown UNKNOWN Verified 12/01/22 12:27 Assessment & Plan Assessment & Plan (1) Bipolar disorder: Status: Acute Code(s): F31.9 - Bipolar disorder, unspecified (2) Bipolar depression: Status: Acute Code(s): F31.9 - Bipolar disorder, unspecified Plan 37 yo male with history of reported bipolar disorder and cocaine use disorder, presents with increased depression and vague SI. He has had multiple section 35's filed by his mom as well as RO that he violated and is now on probation. He presents with non-adherence to treatment and relapse on cocaine. Hospital course: 03/03 patient starting to stabilize on restarted medications and sleeping through the night; complains about weight gain from medication but prefers this to being dysregulated is open to other options and has never tried lithium -will try to gather collateral info got of patient actually needs to be on Abilify as well; may consider changing Depakote to long-acting and once a day dosing -will address substance abuse issues 03/04 Patient irritable, would not talk with typewriter assembly and parts inspector which is quite a turnaround from yesterday where he was friendly and engaged. Will lower Depakote dose given level is supratherapeutic. Patient placed a 3 day notice. Discussed with team; patient had no dangerousness prior to admission Plan: Three day notice Q 15 Continue Depakote 1,250 mg AM Lowered to Depakote 1,000 mg HS Continue Abilify 15 mg QD. valproic acid level 111; LFTs/ammonia WNL hemoglobin A1c; WNL Will explore other medication options given patient's complaint of weight gain (not sure if it is due to Depakote verse Abilify) Obtain Collaterals. Milieu and group therapy DC planning. Patient educated on: diagnosis and medication risk/benefits Informed Consent: further education needed Reason for continued inpatient stay Substantial Risk for: rapid decompensation Time Spent With Patient Time: Total time managing care of this patient today ____ minutes.
[2023-03-04 09:09] LABS: Ammonia 34 umol/L (13-55)
[2023-03-04 09:17] LABS: Alanine Aminotransferase 11 U/L (0-40); Albumin Level 3.6 g/dL (3.5-5.0); Alkaline Phosphatase 40 U/L (39-117); Aspartate Amino Transferase 13 U/L (5-37); Bilirubin Direct 0.3 mg/dL (0.0-0.5); Bilirubin Total 1.2 mg/dL (0.0-1.0); Total Protein 6.2 g/dL (6.5-8.0)
[2023-03-04 09:18] LABS: Valproate 111.6 mcg/mL (50.0-100.0)
[2023-03-04 09:19] LABS: Estimated Average Glucose 100 mg/dL; Hemoglobin A1c % 5.1 %
[2023-03-04 09:42] VITALS: BP 139/96; PULSE 72; RESP 16; TEMP 22.2; O2SAT 99
--- NOTE | 2023-03-04 09:42 | PC.NURSE ---
lab called with critical result; valporic acid 111.6, Dr. Urrutia informed, no further orders @ this time.
[2023-03-04] MEDS: Divalproex Sodium 500 MG TABLET.DR 1000 MG PO (19:37)
[2023-03-05] MEDS: ARIPiprazole 15 MG TABLET PO (08:58)
[2023-03-05] MEDS: Divalproex Sodium 250 MG TABLET.DR 1250 MG PO (08:58)
[2023-03-05 09:01] VITALS: BP 117/75; PULSE 61; RESP 18; TEMP 36.6; O2SAT 97
--- NOTE | 2023-03-05 16:15 | HO.PSYCHPN ---
Subjective Subjective Date of Service: 03/05/23 Reason For Visit: ?bipolar, no meds in 3 weeks Interim History: Met with patient; discussed with team Patient friendly again today. He apologized for yesterday saying that he was just irritable and needed more sleep; he does not remember refusing to talk with keno writer / runner but apologized again. Patient said he is feeling much better and back to his regular self. No SI at all. Patient and keno writer / runner discussed elevated Depakote level and he agrees to continuing at a lower dose. Discussed medication options including making Depakote dosing just once a day which patient was interested in but said he would discuss as an outpatient. Also discussed metformin for weight loss which patient said he would continue to consider as an outpatient. Patient feeling ready for discharge. He said he had a good conversation with his mother; also talked with his father who is pain for him to be in a hotel up in [place], away from drug a crowd that he knows, and then in 3 weeks when his father returns to the [facility], patient will live with his father. Discuss crack cocaine use. Patient said that years ago he was doing it daily but has now significantly cut down his use and is getting closer to quitting permanently. Mental Status Exam Mental Status Exam Narrative: Pt is alert and oriented; behavior is cooperative, friendly and calm; patient is not in distress; dressed in casual attire with unkempt hair but adequate hygiene; mood is described as good and affect congruent, brighter; eye contact appropriate; Speech is normal rate, volume and prosody and not pressured; no psychomotor agitation/retardation present; thought process is goal directed; Thought content is on tx and post discharge plans; otherwise pertinent to relevant topics and without any delusional content, paranoid ideations or grandiosity; no SI; no HI. There is no evidence of perceptual disturbance. Denies AVH Patients insight and judgment fair and adequate. Diagnostics Vital Signs (24Hr): Vital Signs - 24 hr 03/05/23 09:01 Temperature 97.9 F Pulse Rate 61 Respiratory Rate 18 Blood Pressure 117/75 Pulse Oximetry 97 Oxygen Delivery Method Room Air BMI result Body Mass Index 41.2 Labs 03/01/23 04:46 03/02/23 07:15 Labs: Laboratory Results - last 48 hr 03/04/23 03/04/23 03/04/23 08:39 08:39 08:39 Estimat Average Glucose 100 Hemoglobin A1c % 5.1 Total Bilirubin 1.2 H Direct Bilirubin 0.3 AST 13 ALT 11 Alkaline Phosphatase 40 Ammonia 34 Total Protein 6.2 L Albumin 3.6 Valproic Acid 03/04/23 08:39 Estimat Average Glucose Hemoglobin A1c % Total Bilirubin Direct Bilirubin AST ALT Alkaline Phosphatase Ammonia Total Protein Albumin Valproic Acid 111.6 H* Medications Medications Current Medications Acetaminophen (Acetaminophen 325 Mg Tablet) 650 mg PO Q6H PRN PRN Reason: Headache/Pain Mild Scale (1-3) Al Hydroxide/Mg Hydroxide (Magnesium Hydrox/Alum Hydrox 30 Ml Oral.Susp) 30 ml PO Q6H PRN PRN Reason: Heartburn/Nausea Aripiprazole (Aripiprazole 15 Mg Tablet) 15 mg PO DAILY [facility] Last Admin: 03/05/23 08:58 Dose: 15 mg Divalproex Sodium (Divalproex Sodium 250 Mg Tablet.) 1,250 mg PO DAILY [facility] Last Admin: 03/05/23 08:58 Dose: 1,250 mg Divalproex Sodium (Divalproex Sodium 500 Mg Tablet.) 1,000 mg PO BEDTIME [facility] Last Admin: 03/04/23 19:37 Dose: 1,000 mg Hydroxyzine HCl (Hydroxyzine Hcl 25 Mg Tablet) 25 mg PO Q6H PRN PRN Reason: Anxiety Magnesium Hydroxide (Milk Of Magnesia 30 Ml Oral.Susp) 30 ml PO DAILY PRN PRN Reason: Constipation Allergies Allergies Allergy/AdvReac Type Severity Reaction Status Date / Time haloperidol [From HALDOL] Allergy Unknown UNKNOWN Verified 12/01/22 12:27 Assessment & Plan Assessment & Plan (1) Bipolar disorder: Status: Acute Code(s): F31.9 - Bipolar disorder, unspecified (2) Cocaine use disorder: Status: Acute Code(s): F14.10 - Cocaine abuse, uncomplicated Plan 37 yo male with history of reported bipolar disorder and cocaine use disorder, presents with increased depression and vague SI. He has had multiple section 35's filed by his mom as well as RO that he violated and is now on probation. He presents with non-adherence to treatment and relapse on cocaine. Hospital course: 03/03 patient starting to stabilize on restarted medications and sleeping through the night; complains about weight gain from medication but prefers this to being dysregulated is open to other options and has never tried lithium -will try to gather collateral info got of patient actually needs to be on Abilify as well; may consider changing Depakote to long-acting and once a day dosing -will address substance abuse issues 03/04 Patient irritable, would not talk with keno writer / runner which is quite a turnaround from yesterday where he was friendly and engaged. Will lower Depakote dose given level is supratherapeutic. Patient placed a 3 day notice. Discussed with team; patient had no dangerousness prior to admission 03/05 patient has bounced back to being friendly and calm; apologized for yesterday's irritability. Discussed his plans for discharge, how he will eventually be moving in to live with his father in 3 weeks. Patient feels safe and ready for discharge; will consider possible changes to regimen but wants to continue current dosing for now. Patient is not in imminent risk for harm to self or others. His 3 day notice is coming due and he is appropriate for discharge to continue treatment in the community. Request for discharge honored. Plan: Three day notice Q 15 Continue Depakote 1,250 mg AM Lowered to Depakote 1,000 mg HS Continue Abilify 15 mg QD. valproic acid level 111; LFTs/ammonia WNL hemoglobin A1c; WNL Will explore other medication options given patient's complaint of weight gain (not sure if it is due to Depakote verse Abilify) Obtain Collaterals. Milieu and group therapy DC planning. Patient educated on: diagnosis, medication risk/benefits and substance abuse Informed Consent: understands Reason for continued inpatient stay Substantial Risk for: stable for discharge Time Spent With Patient Time: Total time managing care of this patient today ____ minutes.
[2023-03-05 18:33] VITALS: BP 124/77; PULSE 75; TEMP 36.2
[2023-03-05] MEDS: Divalproex Sodium 500 MG TABLET.DR 1000 MG PO (20:22)
[2023-03-06] MEDS: ARIPiprazole 15 MG TABLET PO (07:49)
[2023-03-06] MEDS: Divalproex Sodium 250 MG TABLET.DR 1250 MG PO (07:49)
[2023-03-06 07:55] VITALS: BP 125/74; PULSE 79; RESP 18; TEMP 36; O2SAT 99
[2023-03-06 08:41] VITALS: BMI 38.6
--- NOTE | 2023-03-06 09:31 | P.DS_ITS ---
DS: Providers Provider Date of Service: 03/06/23 Date of admission: 03/01/23 21:11 Date of discharge: 03/06/23 Primary care physician: Nonstaff Physician Attending physician on admission: Dash Hines Attending physician on discharge: Dano Urrutia DS: Diagnosis Discharge Diagnosis (1) Bipolar disorder: Status: Acute (2) Cocaine use disorder: Status: Acute DS: Medications Discharge Medications Home Medications: Previous Rx's Medication Instructions Recorded aripiprazole 15 mg tablet 15 mg PO DAILY 30 days #30 tabs 03/06/23 divalproex 250 mg tablet,delayed 1,250 mg PO QAM 30 days #150 tabs 03/06/23 release divalproex 500 mg tablet,delayed 1,000 mg PO BEDTIME 30 days #60 03/06/23 release tabs Mental Status Exam Mental Status Exam Narrative: Pt is alert and oriented; behavior is cooperative, friendly and calm; patient is not in distress; dressed in casual attire with unkempt hair but adequate hygiene; mood is described as good and affect congruent, brighter; eye contact appropriate; Speech is normal rate, volume and prosody and not pressured; no psychomotor agitation/retardation present; thought process is goal directed; Thought content is on tx and post discharge plans; otherwise pertinent to relevant topics and without any delusional content, paranoid ideations or grandiosity; no SI; no HI. There is no evidence of perceptual disturbance. Denies AVH Patients insight and judgment fair and adequate. Data Data Completed and Pending Completed studies during hospitalization [Text1]: 03/01/23 03/01/23 03/01/23 04:25 04:46 04:46 WBC 7.3 RBC 4.88 Hgb 15.2 Hct 43.2 MCV 88.5 MCH 31.1 MCHC 35.2 RDW 13.6 Plt Count 359 MPV 10.4 Immature Gran % (Auto) 0.3 Neut % (Auto) 47.3 Lymph % (Auto) 37.9 [place] % (Auto) 7.5 Eos % (Auto) 6.6 H Baso % (Auto) 0.4 Lymph # (Auto) 2.8 [place] # (Auto) 0.6 Eos # (Auto) 0.5 H Baso # (Auto) 0.0 Abs Immat Gran (auto) 0.02 Absolute Neuts (auto) 3.5 Absolute Nucleated RBC 0.000 Nucleated RBC % (auto) 0.0 Sodium 138 Potassium 3.9 Chloride 105 Carbon Dioxide 25 Anion Gap 12 BUN 8 L Creatinine 0.97 Estim Creat Clear Calc 161.4 Estimated GFR > 60 Random Glucose 92 Fasting Glucose Estimat Average Glucose Hemoglobin A1c % Calcium 9.3 Total Bilirubin 1.5 H Direct Bilirubin AST 27 ALT 19 Alkaline Phosphatase 62 Ammonia Total Protein 6.8 Albumin 3.9 Triglycerides Cholesterol LDL Cholesterol, Calc HDL Cholesterol Urine Color Urine Appearance Urine pH Ur Specific [place] Urine Protein Urine Glucose (UA) Urine Ketones Urine Blood Urine Nitrite Ur Leukocyte Esterase Urine Opiates Screen Urine Fentanyl Screen Ur Barbiturates Screen Valproic Acid Ur Phencyclidine Scrn Ur Amphetamines Screen U Benzodiazepines Scrn Urine Cocaine Screen U Marijuana (THC) Screen Ethyl Alcohol < 10 COVID-19 ([facility]) Negative COVID-19 [facility] See Note 03/01/23 03/01/23 03/01/23 04:46 19:11 19:11 WBC RBC Hgb Hct MCV MCH MCHC RDW Plt Count MPV Immature Gran % (Auto) Neut % (Auto) Lymph % (Auto) [place] % (Auto) Eos % (Auto) Baso % (Auto) Lymph # (Auto) [place] # (Auto) Eos # (Auto) Baso # (Auto) Abs Immat Gran (auto) Absolute Neuts (auto) Absolute Nucleated RBC Nucleated RBC % (auto) Sodium Potassium Chloride Carbon Dioxide Anion Gap BUN Creatinine Estim Creat Clear Calc Estimated GFR Random Glucose Fasting Glucose Estimat Average Glucose Hemoglobin A1c % Calcium Total Bilirubin Direct Bilirubin AST ALT Alkaline Phosphatase Ammonia Total Protein Albumin Triglycerides Cholesterol LDL Cholesterol, Calc HDL Cholesterol Urine Color Yellow Urine Appearance Clear Urine pH 6.5 Ur Specific [place] 1.015 Urine Protein Negative Urine Glucose (UA) Negative Urine Ketones Negative Urine Blood Negative Urine Nitrite Negative Ur Leukocyte Esterase Negative Urine Opiates Screen Not Detected Urine Fentanyl Screen Not Detected Ur Barbiturates Screen Not Detected Valproic Acid < 12.5 L Ur Phencyclidine Scrn Not Detected Ur Amphetamines Screen Not Detected U Benzodiazepines Scrn Not Detected Urine Cocaine Screen POSITIVE H U Marijuana (THC) Screen Not Detected Ethyl Alcohol COVID-19 ([facility]) COVID-19 [facility] 03/02/23 03/04/23 03/04/23 07:15 08:39 08:39 WBC RBC Hgb Hct MCV MCH MCHC RDW Plt Count MPV Immature Gran % (Auto) Neut % (Auto) Lymph % (Auto) [place] % (Auto) Eos % (Auto) Baso % (Auto) Lymph # (Auto) [place] # (Auto) Eos # (Auto) Baso # (Auto) Abs Immat Gran (auto) Absolute Neuts (auto) Absolute Nucleated RBC Nucleated RBC % (auto) Sodium 140 Potassium 4.0 Chloride 107 Carbon Dioxide 24 Anion Gap 13 BUN 8 L Creatinine 1.00 Estim Creat Clear Calc 156.6 Estimated GFR > 60 Random Glucose Fasting Glucose 84 Estimat Average Glucose 100 Hemoglobin A1c % 5.1 Calcium 8.8 Total Bilirubin 1.0 1.2 H Direct Bilirubin 0.3 AST 17 13 ALT 14 11 Alkaline Phosphatase 40 40 Ammonia Total Protein 5.7 L 6.2 L Albumin 3.3 L 3.6 Triglycerides 88 Cholesterol 129 LDL Cholesterol, Calc 85 HDL Cholesterol 27 Urine Color Urine Appearance Urine pH Ur Specific [place] Urine Protein Urine Glucose (UA) Urine Ketones Urine Blood Urine Nitrite Ur Leukocyte Esterase Urine Opiates Screen Urine Fentanyl Screen Ur Barbiturates Screen Valproic Acid Ur Phencyclidine Scrn Ur Amphetamines Screen U Benzodiazepines Scrn Urine Cocaine Screen U Marijuana (THC) Screen Ethyl Alcohol COVID-19 ([facility]) COVID-19 [facility] 03/04/23 03/04/23 08:39 08:39 WBC RBC Hgb Hct MCV MCH MCHC RDW Plt Count MPV Immature Gran % (Auto) Neut % (Auto) Lymph % (Auto) [place] % (Auto) Eos % (Auto) Baso % (Auto) Lymph # (Auto) [place] # (Auto) Eos # (Auto) Baso # (Auto) Abs Immat Gran (auto) Absolute Neuts (auto) Absolute Nucleated RBC Nucleated RBC % (auto) Sodium Potassium Chloride Carbon Dioxide Anion Gap BUN Creatinine Estim Creat Clear Calc Estimated GFR Random Glucose Fasting Glucose Estimat Average Glucose Hemoglobin A1c % Calcium Total Bilirubin Direct Bilirubin AST ALT Alkaline Phosphatase Ammonia 34 Total Protein Albumin Triglycerides Cholesterol LDL Cholesterol, Calc HDL Cholesterol Urine Color Urine Appearance Urine pH Ur Specific [place] Urine Protein Urine Glucose (UA) Urine Ketones Urine Blood Urine Nitrite Ur Leukocyte Esterase Urine Opiates Screen Urine Fentanyl Screen Ur Barbiturates Screen Valproic Acid 111.6 H* Ur Phencyclidine Scrn Ur Amphetamines Screen U Benzodiazepines Scrn Urine Cocaine Screen U Marijuana (THC) Screen Ethyl Alcohol COVID-19 ([facility]) COVID-19 Clin Com DS: Summary Hospital Course Hospital Course: 37 yo male with history of reported bipolar disorder and cocaine use disorder, presents with increased depression and vague SI. He has had multiple section 35's filed by his mom as well as RO that he violated and is now on probation. He presents with non-adherence to treatment and relapse on cocaine. Hospital course: On admission, patient was starting to feel back to his regular self, no manic symptoms and depression abating; he still had some passive intermittent SI but with no intent or plans and this soon resolved. Patient continued on his medications and was sleeping through the night. He complained about weight gain from medication but prefers this to being dysregulated; senior mortgage underwriter explained options which patient was interested in however preferred to stay in current regimen and work this out later on with an outpatient provider. Patient had a day of irritability where he just stayed in bed it, kept himself and would not engage with senior mortgage underwriter; however this cleared up on its own and patient was again friendly, calm and sociable with peers, appropriate with peers and staff and demonstrating good behavioral and impulse control. Depakote level was supratherapeutic and dose lowered. Patient placed a 3 day notice feeling safe and ready for discharge.? Patient was back to baseline, depression and SI fully resolved. He Discussed his plans for discharge, how he will eventually be moving in to live with his father in 3 weeks and until then will live in a hotel paid for by his father.? Patient remains at risk for both relapse and dysregulation however these are chronic issues of which he is well aware and will not change with longer stay on an inpatient unit.? Patient is not in imminent risk for harm to self or others.? His 3 day notice is came due and he is appropriate for discharge to continue treatment in the community.? Request for discharge honored. Time spent discussing smoking cessation with patient: 3 to 10 minutes Status at Discharge Functional status at discharge: independent ambulation Overall status at discharge: patient is back to baseline Time Spent with Patient Time attestation: Total time managing care of this patient today ____ minutes. Time spent: Less than 30 minutes Discharge Plan Discharge Anticipated Discharge Date/Time: 03/06/23 11:30 Patient Disposition: Senior Living Discharge Diagnosis: Bipolar disorder, recently depressed in full remission Referrals: Intake: [facility]) [Other] - 03/07/23 11:00 am (This appointment is in person at the office in [place]. You MUST attend this appointment in order to be scheduled with the psychiatrist to continue your medications. ) Physician,Nonstaff [Primary Care Provider] - 1 Week Discharge Medications: New divalproex 500 mg Tablet,Delayed Release (Dr/Ec) 1,000 mg PO BEDTIME 30 Days Qty: 60 1RF Continued divalproex 250 mg tablet,delayed release (DR/EC) 1,250 mg PO QAM 30 Days Qty: 150 1RF aripiprazole 15 mg tablet 15 mg PO DAILY 30 Days Qty: 30 1RF Discontinued divalproex 250 mg tablet,delayed release (DR/EC) 1,500 mg PO BEDTIME Discharge Orders: Discharge Order (Routine); Ordered 03/06/23 Ordered By: Dano Urrutia Diet: Regular diet Activity on Discharge: As tolerated Stand Alone Forms: Patient Portal Discharge page Care Plan Goals: Maintain mood and safe behaviors Take medications as prescribed Continue to pursue sobriety Practice coping skills Continue with outpatient providers and reach out to them as needed Health Concerns: Mood stability and behaviors Sobriety Plan of Treatment: Follow up with your PCP, psychiatric provider and other outpatient providers regarding above concerns Take medications as prescribed Assessment: Risk assessment at time of discharge:? Patient was interviewed prior to discharge and found to be fully oriented and without any SI or HI. Patient has insight and demonstrates good judgment in terms of wanting to pursue treatment. Patient is not in imminent risk of harm to self or others and has a safety plan that includes presenting to the closest ER or calling 911 if feeling unsafe.? Patient has been observed closely by nursing and unit staff throughout admission; patient has not engaged in any behaviors that suggest dangerousness to self or others and has demonstrated appropriate behaviors and impulse control
[2023-03-06] MEDS: Naloxone HCl Nasal TAKE HOME 4 MG SPRAY NOSTRILALT (09:45)
== END 2023-03-06 10:54 | disposition home or self-care (01) | DRG 885 ==
LOC: HO.ED 07:18 → HO.PM5 21:12
PROVIDERS: Psychiatry & Neurology Psychiatry; Admitting Provider Psychiatry & Neurology Psychiatry; Emergency Provider Emergency Medicine Emergency Medical Services; Visit Provider Psychiatry & Neurology Psychiatry
DX: F31.30 Bipolar disorder, current episode depressed, mild or moderate severity, unspecified (principal); R45.851 Suicidal ideations; F14.10 Cocaine abuse, uncomplicated; Z20.822 Contact with and (suspected) exposure to COVID-19; Z91.148 Patient's other noncompliance with medication regimen for other reason; Z79.899 Other long term (current) drug therapy
CPT/HCPCS: 36415; 80053; 80061; 80076; 80164; 80307; 81003; 82140; 83036; 85025; 87635; 93005; 99285

== ENCOUNTER 2025-01-10 07:18 | Emergency (ER) | payer MEDICARE, MEDICAID, SELFPAY ==
[2025-01-10 07:53] VITALS: BP 131/85; PULSE 92; RESP 16; TEMP 37; O2SAT 96; BMI 33.9
[2025-01-10 12:53] LABS: MANUAL DIFF FLAG NO
[2025-01-10 12:55] LABS: Basophils Percent Auto 0.3 % (0-2); Eosinophils Absolute Auto 0.3 X10*3/uL (0.0-0.4); Eosinophils Percent Auto 3.2 % (0-4); Hematocrit 46.1 % (42.0-52.0); Hemoglobin 16.2 g/dl (14.0-18.0); Imm Gran Abs Auto 0.02 X10*3/uL (0.00-0.03); Imm Gran Pct Auto 0.2 % (0.0-0.4); Lymphocytes Absolute Auto 3.2 X10*3/uL (1.2-4.9); Mean Corpuscular HGB Conc 35.1 g/dl (31.0-36.0); Mean Corpuscular Volume 91.1 fL (80.0-98.0); Mean Platelet Volume 10.3 fL (9.4-12.4); Monocytes Absolute Auto 0.8 X10*3/uL (0.1-1.2); Monocytes Percent Auto 8.3 % (2-11); Neutrophils Absolute Auto 4.9 x10*3/uL (2.0-8.3); Platelet Count 305 X10*3/uL (160-400); Red Blood Count 5.06 X10*6/uL (4.60-5.80); Red Cell Distribution Width 13.4 % (11.0-16.0); White Blood Count 9.2 X10*3/uL (4.8-10.8)
[2025-01-10 13:09] LABS: Acetaminophen LAB < 3 mcg/mL (<30); Alanine Aminotransferase 44 U/L (0-40); Albumin Level 4.2 g/dL (3.5-5.0); Alkaline Phosphatase 52 U/L (39-117); Anion Gap 13 (12-20); Aspartate Amino Transferase 76 U/L (5-37); Bilirubin Total 1.5 mg/dL (0.0-1.0); Blood Urea Nitrogen 8 mg/dL (9-16); Calcium 9.4 mg/dL (8.4-10.2); Carbon Dioxide 28 mmol/L (22-29); Chloride 103 mmol/L (96-108); Creatinine Clr Calc Pharmacy 141.5; Estimated Glomerular Filt Rate > 60; Ethanol < 10 mg/dL; Glucose Random 87 mg/dL (60-115); Potassium 3.4 mmol/L (3.3-5.1); Salicylate < 5.0 mg/dL (15-30); Sodium 141 mmol/L (135-145); Total Protein 7.1 g/dL (6.5-8.0)
--- NOTE | 2025-01-10 13:57 | ED.GENADULT ---
HPI - General Adult General Chief complaint: Psychiatric Symptoms Stated complaint: bi polar needs medication Time Seen by Provider: 01/10/25 13:57 Source: patient Limitations: no limitations History of Present Illness ED Provider: Martina Foreman PA-C HPI narrative: 39-year-old male with a history of substance abuse, bipolar disorder who presents requesting medication refill. Related Data Previous Rx's ?Medication ?Instructions ?Recorded aripiprazole 15 mg tablet 15 mg PO DAILY 30 days #30 tabs 03/06/23 divalproex 250 mg tablet,delayed 1,250 mg (5 x 250 mg) PO QAM 30 03/06/23 release days #150 tabs divalproex 500 mg tablet,delayed 1,000 mg (2 x 500 mg) PO BEDTIME 03/06/23 release 30 days #60 tabs Allergies Allergy/AdvReac Type Severity Reaction Status Date / Time haloperidol [From HALDOL] Allergy Unknown UNKNOWN Verified 01/10/25 07:59 Review of Systems Review of Systems: Yes all other systems are reviewed and are negative Constitutional: Constitutional: Denies fatigue and Denies fever(s) Cardiovascular: Cardiovascular: Denies chest pain and Denies dyspnea Respiratory: Respiratory: Denies dyspnea Gastrointestinal: Gastrointestinal: Denies abdominal pain, Denies nausea and Denies vomiting Endocrine: Endocrine: Denies fatigue PMFSH Past Medical History Attestation statement: The following information was validated with the patient. Medical History (Updated 01/10/25 @ 14:05 by ELIF Hernandez) Cocaine use disorder Bipolar 1 disorder Social History Social History Household Members: None Housing: Homeless Do you presently have visiting nurse or other home services: No (services not indicated on intake) Unable to assess alcohol history related to: Unknown Alcohol intake: never Patient Tobacco Use Status: Current everyday Tobacco user Tobacco use type: Cigarette Cigarettes Per Day: 5 Second Hand Smoke Exposure: No Substance Use Type: Crack/Cocaine Advance Directives: Yes Advance Directives Information Provided: Yes Advance Directives on File: No Do you have a plan to hurt others: No Plan service: No Sexual orientation: Did not discuss Physical Exam ED Vital Signs: Vital Signs - 24 hr 01/10/25 07:53 Temperature 98.6 F Pulse Rate 92 Respiratory Rate 16 Blood Pressure 131/85 Pulse Oximetry 96 Oxygen Delivery Method Room Air BMI result Body Mass Index 33.9 Const Other: Alert Orientation/consciousness: patient oriented x3 Resp Effort & Inspection: normal respiratory effort Cardio Other: Normal peripheral perfusion Skin Other: Warm dry no rash Neuro General: patient oriented x3, gait normal, no focal motor deficits and CN's II-XI intact bilaterally Psych Other: Cooperative Medications Administered Discontinued Medications Generic Name Dose Route Start Last Admin Trade Name Freq PRN Reason Stop Dose Admin Divalproex Sodium 1,250 mg 01/10/25 13:58 01/10/25 14:07 Divalproex Sodium 250 Mg Tablet.Dr BARRIOS 01/10/25 13:59 1,250 mg ONCE ONE Administration Medical Decision Making Medical Decision Making MDM Narrative: 39-year-old male with a history of substance abuse, bipolar disorder who presents requesting medication refill. Problem: Substance abuse, psychiatric illness History: Per patient I have considered the following differential diagnoses: Need for medication refill Plan: Patient states he has a bed at rehab, he is here requesting his prescribed psychiatric medications; he states he takes olanzapine and Depakote. From our system I see Abilify and Depakote, I explained to the patient that I will give a 1 time dose, that he needs to find a healthcare provider who can prescribe his medications. I told him that the rehab facility should be able to help him with this. No indication for labs or imaging. Lab Data 01/10/25 12:42 01/10/25 12:42 Labs: Lab Results 01/10/25 Range/Units 12:42 WBC 9.2 (4.8-10.8) X10*3/uL RBC 5.06 (4.60-5.80) X10*6/uL Hgb 16.2 (14.0-18.0) g/dl Hct 46.1 (42.0-52.0) % MCV 91.1 (80.0-98.0) fL MCH 32.0 (27.0-33.0) pg MCHC 35.1 (31.0-36.0) g/dl RDW 13.4 (11.0-16.0) % Plt Count 305 (160-400) X10*3/uL MPV 10.3 (9.4-12.4) fL Immature Gran % (Auto) 0.2 (0.0-0.4) % Neut % (Auto) 53.0 (45-73) % Lymph % (Auto) 35.0 (20-40) % [place] % (Auto) 8.3 (2-11) % Eos % (Auto) 3.2 (0-4) % Baso % (Auto) 0.3 (0-2) % Lymph # (Auto) 3.2 (1.2-4.9) X10*3/uL [place] # (Auto) 0.8 (0.1-1.2) X10*3/uL Eos # (Auto) 0.3 (0.0-0.4) X10*3/uL Baso # (Auto) 0.0 (0.0-0.2) X10*3/uL Abs Immat Gran (auto) 0.02 (0.00-0.03) X10*3/uL Absolute Neuts (auto) 4.9 (2.0-8.3) x10*3/uL Absolute Nucleated RBC 0.000 (0.0-0.012) X10*3/uL Nucleated RBC % (auto) 0.0 (0.0-0.2) /100WBC Sodium 141 (135-145) mmol/L Potassium 3.4 (3.3-5.1) mmol/L Chloride 103 (96-108) mmol/L Carbon Dioxide 28 (22-29) mmol/L Anion Gap 13 (12-20) BUN 8 L (9-16) mg/dL Creatinine 0.98 (0.5-1.4) mg/dL Estim Creat Clear Calc 141.5 Estimated GFR > 60 Random Glucose 87 (60-115) mg/dL Calcium 9.4 D (8.4-10.2) mg/dL Total Bilirubin 1.5 H (0.0-1.0) mg/dL AST 76 H (5-37) U/L ALT 44 H (0-40) U/L Alkaline Phosphatase 52 (39-117) U/L Total Protein 7.1 (6.5-8.0) g/dL Albumin 4.2 (3.5-5.0) g/dL Salicylates < 5.0 L (15-30) mg/dL Acetaminophen < 3 (<30) mcg/mL Ethyl Alcohol < 10 mg/dL Discharge Plan Discharge Clinical Impression: Encounter for medication refill Patient Disposition: Home, Self-Care Additional Instructions: You received a 1 time dose of the aripiprazole 15 mg and Depakote 1250 mg. You need to establish care with a provider who can continue to feel your psychiatric related medications. You can discuss this need at rehab. Prescriptions: No Action divalproex 500 mg Tablet,Delayed Release (Dr/Ec) 1,000 mg PO BEDTIME 30 Days Qty: 60 1RF divalproex 250 mg tablet,delayed release (DR/EC) 1,250 mg PO QAM 30 Days Qty: 150 1RF aripiprazole 15 mg tablet 15 mg PO DAILY 30 Days Qty: 30 1RF Print Language: Kazakh
[2025-01-10] MEDS: Divalproex Sodium 250 MG TABLET.DR 1250 MG PO (14:07)
[2025-01-10 14:36] VITALS: BP 131/85; PULSE 92; RESP 16; TEMP 37; O2SAT 96
== END 2025-01-10 14:39 | disposition home or self-care (01) ==
PROVIDERS: Physician Assistant Medical; Emergency Provider Emergency Medicine Emergency Medical Services
DX: F31.9 Bipolar disorder, unspecified (principal); F17.210 Nicotine dependence, cigarettes, uncomplicated; Z76.0 Encounter for issue of repeat prescription; Z51.81 Encounter for therapeutic drug level monitoring; Z79.899 Other long term (current) drug therapy
CPT/HCPCS: 36415; 80053; 80143; 80179; 80307; 85025; 99283

== ENCOUNTER 2025-01-23 01:14 | Inpatient (IN) | payer MEDICARE, MEDICAID, SELFPAY ==
--- NOTE | ~2025-01-23 | CT_ITS ---
CLINICAL HISTORY: progressive memory loss over past [address] head without contrast Comparison: None Findings: No intra-axial mass, midline shift, hydrocephalus, or acute hemorrhage. No significant atrophy-like change or white matter disease. Mild mucoperiosteal thickening of the paranasal sinuses. Prominent leftward nasal septal spur, axial 6 The orbits are unremarkable. There is no acute fracture. IMPRESSION: 1. No acute intracranial findings. This document has been electronically signed by: Jerrell Martinez MD on 01/26/2025 11:50:29
[2025-01-23 01:21] VITALS: BP 128/65; PULSE 95; O2SAT 95
[2025-01-23 01:28] VITALS: BP 129/72; PULSE 81; RESP 18; TEMP 37; O2SAT 97; BMI 23.1
[2025-01-23 01:49] LABS: MANUAL DIFF FLAG NO
[2025-01-23 01:51] LABS: Basophils Percent Auto 0.2 % (0-2); Eosinophils Percent Auto 0.2 % (0-4); Hematocrit 43.9 % (42.0-52.0); Hemoglobin 16.2 g/dl (14.0-18.0); Imm Gran Abs Auto 0.04 X10*3/uL (0.00-0.03); Imm Gran Pct Auto 0.3 % (0.0-0.4); Lymphocytes Absolute Auto 1.8 X10*3/uL (1.2-4.9); Lymphocytes Percent Auto 11.7 % (20-40); Mean Corpuscular HGB Conc 36.9 g/dl (31.0-36.0); Mean Corpuscular Hemoglobin 32.4 pg (27.0-33.0); Mean Corpuscular Volume 87.8 fL (80.0-98.0); Mean Platelet Volume 10.2 fL (9.4-12.4); Monocytes Absolute Auto 1.3 X10*3/uL (0.1-1.2); Monocytes Percent Auto 8.4 % (2-11); Neutrophils Absolute Auto 12.1 x10*3/uL (2.0-8.3); Neutrophils Percent Auto 79.2 % (45-73); Platelet Count 336 X10*3/uL (160-400); Red Cell Distribution Width 13.5 % (11.0-16.0); White Blood Count 15.3 X10*3/uL (4.8-10.8)
[2025-01-23 02:10] LABS: Anion Gap 18 (12-20); Blood Urea Nitrogen 27 mg/dL (9-16); Calcium 9.6 mg/dL (8.4-10.2); Carbon Dioxide 21 mmol/L (22-29); Chloride 97 mmol/L (96-108); Creatinine Clr Calc Pharmacy 119.8; Estimated Glomerular Filt Rate > 60; Ethanol < 10 mg/dL; Glucose Random 84 mg/dL (60-115); Potassium 4.3 mmol/L (3.3-5.1); Sodium 132 mmol/L (135-145)
[2025-01-23 02:15] LABS: Acetaminophen LAB < 3 mcg/mL (<30); Salicylate < 5.0 mg/dL (15-30)
[2025-01-23] MEDS: Divalproex Sodium 500 MG TABLET.DR 1000 MG PO ×2 (03:00→20:38)
[2025-01-23] MEDS: OLANZapine 10 MG TABLET PO ×2 (03:00→20:39)
--- NOTE | 2025-01-23 03:09 | PC.NURSE ---
pt came out of room requesting a shower to wash the fety off his feet. staff stated we could not provide a shower at this time. pt very upset, yelling at staff, security called. pt washed his feet in the toilet... pt reports he feels better now, was paranoid the fety would kill him. pt apologized to staff, requested home meds. pt medicated per MAR
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
[2025-01-23 04:55] LABS: Amphetamine Screen Urine Not Detected (Not Detect); Barbiturates, Urine Not Detected (Not Detect); Benzodiazepines Screen Urine Not Detected (Not Detect); Buprenorphine Scr Not Detected (Not Detect); Cannabinoid Screen Urine POSITIVE (Not Detect); Cocaine Screen Urine POSITIVE (Not Detect); Fentanyl, urine Not Detected (Not Detect); Methadone Screen, Urine Not Detected (Not Detect); Opiate Screen Urine Not Detected (Not Detect); Oxycodone Screen Urine Not Detected (Not Detect); Phencyclidine Screen Urine Not Detected (Not Detect)
[2025-01-23 07:20] VITALS: RESP 16
--- NOTE | 2025-01-23 07:20 | PC.NURSE ---
Assumed care of patient at 0645, patient appears to be in no apparent distress this, ambulating with slightly unsteady gait around BH pod, patient is also refusing to wear a shirt around the pod depsite staff redirection. Continue plan of care for CARE team serge
[2025-01-23 07:45] LABS: Appearance Urine Clear; Color Urine Yellow; Glucose Urine UA Negative (Negative); Leukocyte Esterase Urine Negative (Negative); Nitrite Urine Negative (Negative); PH 5.5 (5.0-9.0); Specific Gravity - Urine 1.025 (1.005-1.025); Urine Blood Negative (Negative); Urine Ketones 15 mg/dL (Negative); Urine Protein Negative (Neg-Trace)
--- NOTE | 2025-01-23 11:51 | PC.NURSE ---
Patient is much clearer at this time, calm and cooperative, interacting with others in the milieu, coloring and watching TV. Patient aware of plan of care for CARE team rupinder valentine agreeable
[2025-01-23 12:26] VITALS: BP 116/63; PULSE 74; RESP 18; TEMP 37.1; O2SAT 95
--- NOTE | 2025-01-23 12:34 | PC.NURSE ---
Patient reporting frequent nausea, denies feelings of withdrawal. Patient reports that for the last 6 months he has been intermittently nauseous, throws up and then feels better
--- NOTE | 2025-01-23 13:48 | PC.NURSE ---
Pt agitated, reporting that we are going to discharge him to the street and that his mother said he will be homeless if he discharged. patient then started calling staff cuneleanor , jesuss and bitches . these fucking bitches just wanna kick me the fuck outta here . this RN and [facility] both attempted to explain to the patient that he is not being discharged. Dispo changed to dual dx bedsearch. Pt was educated by this RN that he cannot be calling staff names, and if he continues he will be discharged. Pt verbalizes understanding of this. Security present at bedside for conversation
[2025-01-23] MEDS: Ondansetron ODT 4 MG TAB.RAPDIS TRANSLINGU (14:34)
[2025-01-23 14:57] VITALS: BP 138/77; PULSE 82; RESP 16; O2SAT 99
--- NOTE | 2025-01-23 19:13 | PC.NURSE ---
patient appears to remain at rest at present respirations are even and unlabored patient appears in no distress
--- NOTE | 2025-01-24 02:51 | PC.NURSE ---
patient comes out periodically (now) requesting snacks or drinks.
[2025-01-24 07:19] VITALS: BP 106/68; PULSE 81; RESP 16; TEMP 36.3; O2SAT 95
--- NOTE | 2025-01-24 09:01 | ECG_ITS ---
Test Reason : CHECK QT Blood Pressure : */* mmHG Vent. Rate : 63 BPM Atrial Rate : 63 BPM P-R Int : 172 ms QRS Dur : 108 ms QT Int : 442 ms P-R-T Axes : 13 41 13 degrees QTcB Int : 452 ms Normal sinus rhythm Minimal voltage criteria for LVH, may be normal variant ( Sokolow-Pendleton ) Septal infarct , age undetermined Abnormal ECG When compared with ECG of 01-Mar-2023 12:44, No significant change was found Referred By: Waleska Giron Electronically Signed By: Ba Tenorio
--- NOTE | 2025-01-24 09:15 | PC.NURSE ---
Patient approaching the nurse's station multiple times during RN to RN report. Occasionally blocking other doors, pacing, slightly agitated. Dr. Bree thorne.
--- NOTE | 2025-01-24 10:32 | MHC.EDTECH ---
Patient spitting phlem into sinks. Patient asked repeatedly if he would please stop as they are communal sinks. Bag offered, patient took it and threw it away. Patient offered tissue, patient refused and muttered under his breath.
--- NOTE | 2025-01-24 10:39 | PHA.MEDREC ---
Pharmacy Consult ? Medication Reconciliation Pharmacy has reviewed the medication reconciliation done by nursing. Spoke to patients mother and she was able to confirm Divalproex DR 750 mg ( 3 X 250 mg) NOT Divalproex 1,000 mg ( 5 x 250 mg). updated med rec and will notify Md. of change. Mother also confirmed Olanzapine 10 mg at bedtime, Omeprazole 20 mg daily.
--- NOTE | 2025-01-24 14:57 | PC.NURSE ---
Patient is repeatedly pacing around BH Pod. Patient is intermittently rude to staff. Demanding. He has largely been cooperative with this RN, but continues to make rude statements and use vulgar language at times.
[2025-01-24 16:39] VITALS: BP 113/76; PULSE 66; RESP 16; TEMP 36.4; O2SAT 99
[2025-01-24] MEDS: OLANZapine 10 MG TABLET PO (19:43)
[2025-01-24] MEDS: Divalproex Sodium 250 MG TABLET.DR 750 MG PO (19:43)
--- NOTE | 2025-01-24 19:45 | PC.NURSE ---
Patient requested to be medicated with his bedtime mediations at 19:40, Dr. Mcelroy made aware, per MD OK to medicate patient with medications earlier.
--- NOTE | 2025-01-24 20:20 | PC.NURSE ---
Patient noted spitting and intentionally vomiting on he floor in his room. When asked if he was feeling nauseous, patient denied nausea and refused to be medicated with Zofran PO. Patient undressed himself and noted to ambulate naked in the hallway. When asked to put on a clean ming, patient refused, walked into his room slamming the door, patient verbally disrespectful to staff and difficult to redirect. Security and environmental service called to assist with room cleaning and assist patient to get dressed into a pot attire.
--- NOTE | 2025-01-24 20:32 | PC.NURSE ---
Patient applied a pod attire in presence of security, patient's room was cleaned by environmental service. Patient currently resting in a bed, offers no complaints at this time.
[2025-01-25] VITALS (9 sets, daily range): BP systolic 101–142; BP diastolic 58–88; PULSE 58–88; RESP 16–22; TEMP 36.6–37.1; O2SAT 95–100; BMI 33.5
--- NOTE | 2025-01-25 01:47 | PC.NURSE ---
Patient currently resting in bed, eyes closed, RR 16, respirations even and unlabored. Patient appears in no apparent distress. Plan of care of car ongoing.
--- NOTE | 2025-01-25 05:58 | PC.NURSE ---
Patient is awake, VSS obtained and stable, patient reports having sore throat and productive cough with clear sputum. Dr. Guillen notified. Patient swabbed for SARS/COVID/FLU/RSV and strep throat, results pending. Patient requested and given warm tea with sugar, tolerated well.
[2025-01-25 06:13] LABS: IDNOW Serial# 58CA691E; Strep A Nucleic Acid Negative (Negative)
[2025-01-25 06:41] LABS: Influenza A PCR NEGATIVE (Negative); Influenza B PCR NEGATIVE (Negative); Resp Syncy Virus RNA Qual PCR NEGATIVE (Negative); SARS COV2 PCR INHOUSE NEGATIVE (Negative)
--- NOTE | 2025-01-25 06:52 | PC.NURSE ---
Assumed care of patient at 0645, patient appears to be in no apparent distress this am, calm and cooperative, patient ambulating around BH pod with steady gait. Continue plan of care for dual dx bedsearch
--- NOTE | 2025-01-25 07:35 | PC.NURSE ---
Patient appears to be ambulating around BH pod, conversing with other patient in the milieu, patient does not appear to be in any apparent distress at this time, calm and cooperative, occasionally asking questions to this RN about inpatient stay and plan of care. All questions answered and patient appeared satisfied with answers
[2025-01-25] MEDS: LORazepam 2 MG/ML VIAL IM (08:10)
[2025-01-25] MEDS: OLANZapine 10 MG VIAL IM (08:10)
--- NOTE | 2025-01-25 08:56 | MHC.EDTECH ---
Vitals was taken@ 853am, patient is calm and resting in his bed now
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
[2025-01-25 09:29] LABS: MANUAL DIFF FLAG NO
[2025-01-25 09:33] LABS: Basophils Percent Auto 0.2 % (0-2); Eosinophils Percent Auto 0.3 % (0-4); Hematocrit 42.7 % (42.0-52.0); Hemoglobin 15.2 g/dl (14.0-18.0); Imm Gran Abs Auto 0.05 X10*3/uL (0.00-0.03); Imm Gran Pct Auto 0.5 % (0.0-0.4); Lymphocytes Absolute Auto 2.1 X10*3/uL (1.2-4.9); Lymphocytes Percent Auto 20.3 % (20-40); Mean Corpuscular HGB Conc 35.6 g/dl (31.0-36.0); Mean Corpuscular Hemoglobin 31.9 pg (27.0-33.0); Mean Corpuscular Volume 89.7 fL (80.0-98.0); Mean Platelet Volume 10.3 fL (9.4-12.4); Monocytes Absolute Auto 0.8 X10*3/uL (0.1-1.2); Neutrophils Absolute Auto 7.3 x10*3/uL (2.0-8.3); Neutrophils Percent Auto 70.7 % (45-73); Platelet Count 285 X10*3/uL (160-400); Red Blood Count 4.76 X10*6/uL (4.60-5.80); Red Cell Distribution Width 13.2 % (11.0-16.0); White Blood Count 10.3 X10*3/uL (4.8-10.8)
[2025-01-25 09:51] LABS: Anion Gap 11 (12-20); Blood Urea Nitrogen 10 mg/dL (9-16); Calcium 9.7 mg/dL (8.4-10.2); Carbon Dioxide 36 mmol/L (22-29); Chloride 92 mmol/L (96-108); Creatinine Clr Calc Pharmacy 129.7; Estimated Glomerular Filt Rate > 60; Glucose Random 91 mg/dL (60-115); Sodium 136 mmol/L (135-145)
[2025-01-25] MEDS: Potassium Chloride ER 20 MEQ TAB.ER.PRT 40 MEQ PO (12:43)
--- NOTE | 2025-01-25 13:19 | PC.NURSE ---
Patient has been sleeping since about 0900 s/p IM restraint, respirations are even and unlabored, no apparent distress is noted
--- NOTE | 2025-01-25 15:17 | HO.PSYADMNOT ---
HPI Date of Service: 01/25/25 Chief Complaint: yenny HPI Narrative: per CARE team serge, pt BIBSejal after having relapsed on cocaine and running out in the street naked and behaving in an agitated manner with PD when EMS arrived for him. also per CARE team serge, pt was noted to not be taking his psych meds. pt reported that after 9 months sober he had relapsed to cocaine use 3 days prior. although he endorsed anx/dep, he denied SI/HI and appeared to struggle to recall biographic events. on interview with CARE team, pt described himself as depressed and anxious and presented with an irritable affect. pt informed CARE team staff that he felt like killing himself after the interview was completed, and then he became verbally aggressive with ED staff. he was ultimately given IM ativan and zyprexa for dangerous agitation. per collateral from pt's mother, pt had made SI statements to her the night prior to his being brought to the hospital. she reported he has had unexplained severe memory problems over the past 6 months such that she sometimes has to help him get food or show him where his room is in the house. on interview with MD, pt is calm, and cooperative, hypo-intense. he is direct and logical, although he struggles to answer some historical questions citing very poor memory function in the past 6 months. denies safety concerns. medications are discussed, pt agrees to restart VPA and anti-psychotic, saying he has not really been consistently taking anything for the past year. urges MD to call his mother for medications collateral. MD speaks with mother and she supports remaining on zyprexa for now. VPA dosing discussed with her as well. mother shares her concerns for son's memory, some w/u for that discussed as well. Past Psychiatric History: hosps: Multiple inpatient hospitalizations including [facility] in 2022, 2019, [facility]. Multiple section 35's. SA: denies SIB: denies outpt: none for the past 2 years, on waiting list for [facility] Medical Evaluation Reviewed: Yes [facility] Medical History Cocaine use disorder Bipolar 1 disorder Family History: Bipolar disorder and schizoaffective disorder. Social History: Single, no children. Born in [place]. Moved to age 6. Parents /. Father in [place]. Has GED. On social security. On probation following release for violating RO. not working the past 3-4 years. Substance History: tobacco - 1 ppd alcohol - denies cannabis - utox POS cocaine - utox POS. reports lapse of only the past 3 days after 9 months sober. denies use of other substances. h/o numerous section 35s. Trauma History: Deferred Diagnostics Vital Signs (24Hr): Vital Signs - 24 hr 01/24/25 16:39 01/25/25 06:02 01/25/25 08:00 Temperature 97.6 F 98.2 F Pulse Rate 66 60 Respiratory Rate 16 17 22 H Blood Pressure 113/76 112/73 Pulse Oximetry 99 95 Oxygen Delivery Method Room Air Room Air 01/25/25 08:15 01/25/25 08:30 01/25/25 08:53 Temperature 97.8 F Pulse Rate 64 Respiratory Rate 18 16 16 Blood Pressure 114/66 Pulse Oximetry 100 Oxygen Delivery Method Room Air 01/25/25 09:02 Temperature Pulse Rate 58 Respiratory Rate 16 Blood Pressure 118/70 Pulse Oximetry 100 Oxygen Delivery Method Room Air BMI result Body Mass Index 23.1 Labs 01/25/25 09:25 01/25/25 09:25 Labs: Laboratory Results - last 48 hr 01/25/25 01/25/25 05:57 09:25 WBC 10.3 RBC 4.76 Hgb 15.2 Hct 42.7 MCV 89.7 MCH 31.9 MCHC 35.6 RDW 13.2 Plt Count 285 MPV 10.3 Immature Gran % (Auto) 0.5 H Neut % (Auto) 70.7 Lymph % (Auto) 20.3 [place] % (Auto) 8.0 Eos % (Auto) 0.3 Baso % (Auto) 0.2 Lymph # (Auto) 2.1 [place] # (Auto) 0.8 Eos # (Auto) 0.0 Baso # (Auto) 0.0 Abs Immat Gran (auto) 0.05 H Absolute Neuts (auto) 7.3 Absolute Nucleated RBC 0.000 Nucleated RBC % (auto) 0.0 Sodium 136 Potassium 3.0 L D Chloride 92 L Carbon Dioxide 36 H Anion Gap 11 L BUN 10 Creatinine 0.85 Estim Creat Clear Calc 129.7 Estimated GFR > 60 Random Glucose 91 Calcium 9.7 Influenza Type A (PCR) NEGATIVE Influenza Type B (PCR) NEGATIVE RSV RNA Qual (PCR) NEGATIVE SARS-CoV-2 RNA (RT-PCR) NEGATIVE S. pyogenes GrpA ANDI Negative Meds/Allergies Meds Home Medications ?Medication ?Instructions ?Recorded ?Confirmed ?Type olanzapine 10 mg tablet 10 mg PO BEDTIME 01/23/25 01/23/25 History divalproex 250 mg tablet,delayed 750 mg PO BEDTIME 01/24/25 01/24/25 History release omeprazole 20 mg capsule,delayed 20 mg PO DAILY@0630 01/24/25 01/24/25 History release Allergies Allergies Allergy/AdvReac Type Severity Reaction Status Date / Time haloperidol [From HALDOL] Allergy Unknown UNKNOWN Verified 01/23/25 01:29 Pork/Porcine Containing AdvReac Unknown Verified 01/25/25 02:13 Products Mental Status Exam Mental Status Exam Narrative: disheveled, hospital attire. no PMA/PMR. cooperative. speech nml rate, decr amount, nml loudness, nml latency. accented. thoughts linear and logical, though poor recall, which is reported to be a problem over the past 6 months. affect blunted, hypo-intense, non-labile. mood normal. denies SI/SIBI/HI/AVH. Assessment & Plan Assessment & Plan (1) Bipolar disorder: Status: Acute Code(s): F31.9 - Bipolar disorder, unspecified (2) Cocaine use disorder: Status: Acute Code(s): F14.10 - Cocaine abuse, uncomplicated (3) Cognitive disorder: Status: Acute Code(s): F09 - Unspecified mental disorder due to known physiological condition Plan restart/increase VPA to 1500 mg QHS. has recently been Rxed 750 QHS, taking only 250 QHS per pt's mother, and at last admission at [facility]5 was discharged on 2250. continue olanzapine 10 mg QHS. per collateral from mother, pt has been on this medication for quite some time and she would be concerned about DCing it. will leave it for now and reassess as hospitalization progresses. was discharged from on abilify 15 daily. concern for depressive phase and lack of anti-depressant regimen. will discuss tomorrow. supportive care for cocaine withdrawal. memory concerns - admission labs, head CT Patient educated on: diagnosis, medication risk/benefits and substance abuse Reason for continued inpatient stay Substantial Risk for: harm to self, harm to others and inability to function Statement Statement: I have reviewed the history and physical and performed a pertinent examination on my patient. No changes have occurred unless specified. If the History and Physical was not performed prior to admission, the Hospitalist's service will be consulted for completing the admission physical. Time Spent With Patient Time: Total time managing care of this patient today __55__ minutes.
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
[2025-01-25] MEDS: Throat Lozenge, Medicated LOZENGE 1 LOZENGE MUCOUS MEM (18:57)
[2025-01-25] MEDS: OLANZapine 10 MG TABLET PO (19:46)
[2025-01-25] MEDS: Divalproex Sodium 500 MG TABLET.DR 1500 MG PO (19:46)
[2025-01-25] MEDS: guaiFENesin LA 600 MG TAB.ER.12H 1200 MG PO (19:46)
[2025-01-25] MEDS: Nicotine Polacrilex 2 MG GUM 4 MG BUCCAL (19:51)
--- NOTE | 2025-01-25 19:56 | PC.NURSE ---
patient requesting HS medications at this time. provider notified. medications administered.
[2025-01-26 07:30] VITALS: BP 124/84; PULSE 89; RESP 16; TEMP 36.5; O2SAT 95
[2025-01-26 07:58] LABS: Influenza A PCR NEGATIVE (Negative); Influenza B PCR NEGATIVE (Negative); Resp Syncy Virus RNA Qual PCR NEGATIVE (Negative); SARS COV2 PCR INHOUSE NEGATIVE (Negative)
--- NOTE | 2025-01-26 10:56 | P.PNPSI_ITS ---
Subjective Subjective Date of Service: 01/26/25 Reason For Visit: yenny Interim History: seen in his room, pt in bed. states he slept well and meds are working well for him. does not want any changes. asks, how long have i been here? informed 1 day on the unit. no other complaints or requests. per staff, denies anxiety, hypervigilant. memory impairment. COVID NEG. refused labs this morning. CT results pending. Mental Status Exam Mental Status Exam Narrative: disheveled, hospital attire. no PMA/PMR. cooperative. speech nml rate, decr amount, nml loudness, nml latency. accented. thoughts linear and logical, though poor recall, which is reported to be a problem over the past 6 months. affect blunted, hypo-intense, non-labile. mood not assessed. no SI/SIBI/HI/AVH expressed. Diagnostics Vital Signs (24Hr): Vital Signs - 24 hr 01/25/25 14:05 01/25/25 15:54 01/25/25 20:00 Temperature 98.7 F 97.9 F Pulse Rate 88 74 64 Respiratory Rate 16 16 Blood Pressure 142/88 H 118/73 101/58 L Pulse Oximetry 99 96 Oxygen Delivery Method Room Air Room Air Room Air 01/26/25 07:30 Temperature 97.7 F Pulse Rate 89 Respiratory Rate 16 Blood Pressure 124/84 Pulse Oximetry 95 Oxygen Delivery Method Room Air BMI result Body Mass Index 33.5 Labs 01/25/25 09:25 01/25/25 09:25 Labs: Laboratory Results - last 48 hr 01/25/25 01/25/25 01/26/25 05:57 09:25 07:05 WBC 10.3 RBC 4.76 Hgb 15.2 Hct 42.7 MCV 89.7 MCH 31.9 MCHC 35.6 RDW 13.2 Plt Count 285 MPV 10.3 Immature Gran % (Auto) 0.5 H Neut % (Auto) 70.7 Lymph % (Auto) 20.3 [place] % (Auto) 8.0 Eos % (Auto) 0.3 Baso % (Auto) 0.2 Lymph # (Auto) 2.1 [place] # (Auto) 0.8 Eos # (Auto) 0.0 Baso # (Auto) 0.0 Abs Immat Gran (auto) 0.05 H Absolute Neuts (auto) 7.3 Absolute Nucleated RBC 0.000 Nucleated RBC % (auto) 0.0 Sodium 136 Potassium 3.0 L D Chloride 92 L Carbon Dioxide 36 H Anion Gap 11 L BUN 10 Creatinine 0.85 Estim Creat Clear Calc 129.7 Estimated GFR > 60 Random Glucose 91 Calcium 9.7 Influenza Type A (PCR) NEGATIVE NEGATIVE Influenza Type B (PCR) NEGATIVE NEGATIVE RSV RNA Qual (PCR) NEGATIVE NEGATIVE SARS-CoV-2 RNA (RT-PCR) NEGATIVE NEGATIVE S. pyogenes GrpA ANDI Negative Medications Medications Current Medications Acetaminophen (Acetaminophen 325 Mg Tablet) 650 mg PO Q6H PRN PRN Reason: Headache/Pain, Scale 1-10 Al Hydroxide/Mg Hydroxide (Magnesium Hydrox/Alum Hydrox 30 Ml Oral.Susp) 30 ml PO Q6H PRN PRN Reason: Heartburn/Nausea Benzocaine (Throat Lozenge, Medicated Lozenge) 1 lozenge MUCOUS MEM Q2H PRN PRN Reason: Sore Throat Last Admin: 01/25/25 18:57 Dose: 1 lozenge Divalproex Sodium (Divalproex Sodium 500 Mg Tablet.Dr) 1,500 mg PO BEDTIME ELLIOT Last Admin: 01/25/25 19:46 Dose: 1,500 mg Guaifenesin (Guaifenesin La 600 Mg Tab.Er.12h) 1,200 mg PO BID PRN PRN Reason: Cough Last Admin: 01/25/25 19:46 Dose: 1,200 mg Hydroxyzine HCl (Hydroxyzine Hcl 25 Mg Tablet) 25 mg PO Q6H PRN PRN Reason: mild anxiety Lorazepam (Lorazepam 1 Mg Tablet) 2 mg PO TID PRN PRN Reason: agitation Magnesium Hydroxide (Milk Of Magnesia 30 Ml Oral.Susp) 30 ml PO DAILY PRN PRN Reason: Constipation Nicotine Polacrilex (Nicotine Polacrilex 2 Mg Gum) 4 mg BUCCAL Q2H PRN PRN Reason: Nicotine Cravings Last Admin: 01/25/25 19:51 Dose: 4 mg Olanzapine (Olanzapine 10 Mg Tablet) 10 mg PO BEDTIME ELLIOT Last Admin: 01/25/25 19:46 Dose: 10 mg Trazodone HCl (Trazodone Hcl 50 Mg Tablet) 50 mg PO BEDTIME MRX1 PRN PRN Reason: Insomnia Allergies Allergies Allergy/AdvReac Type Severity Reaction Status Date / Time haloperidol [From HALDOL] Allergy Unknown UNKNOWN Verified 01/23/25 01:29 Pork/Porcine Containing AdvReac Unknown Verified 01/25/25 02:13 Products Assessment & Plan Assessment & Plan (1) Bipolar disorder: Status: Acute Code(s): F31.9 - Bipolar disorder, unspecified (2) Cocaine use disorder: Status: Acute Code(s): F14.10 - Cocaine abuse, uncomplicated (3) Cognitive disorder: Status: Acute Code(s): F09 - Unspecified mental disorder due to known physiological condition Plan 01/25: restart/increase VPA to 1500 mg QHS. has recently been Rxed 750 QHS, taking only 250 QHS per pt's mother, and at last admission at [facility] M5 was discharged on 2250. continue olanzapine 10 mg QHS. per collateral from mother, pt has been on this medication for quite some time and she would be concerned about DCing it. will leave it for now and reassess as hospitalization progresses. was discharged from on abilify 15 daily. concern for depressive phase and lack of anti-depressant regimen. will discuss tomorrow. supportive care for cocaine withdrawal. memory concerns - admission labs, head CT. 01/26: pt resting, isolative. likely withdrawing from cocaine. allow rest, post-pone discussion re anti-depressant until through cocaine withdrawal. refused labs today for memory w/u. head CT pending. Reason for continued inpatient stay Substantial Risk for: harm to self, harm to others and inability to function Time Spent With Patient Time: Total time managing care of this patient today __35__ minutes.
[2025-01-26] MEDS: Throat Lozenge, Medicated LOZENGE 1 LOZENGE MUCOUS MEM (16:37)
--- NOTE | 2025-01-26 16:43 | PC.NURSE ---
pt refused labs, provider aware
[2025-01-26 19:40] VITALS: BP 127/80; PULSE 69; RESP 16; TEMP 36.9; O2SAT 98
[2025-01-26 20:00] LABS: TSH reflex Free T4 1.12 uIU/mL (0.32-4.0)
[2025-01-26] MEDS: OLANZapine 10 MG TABLET PO (20:07)
[2025-01-26] MEDS: Divalproex Sodium 500 MG TABLET.DR 1500 MG PO (20:07)
[2025-01-26 20:13] LABS: Folate 6.8 ng/mL (> or = 4.0); Vitamin B12 479 pg/mL (200-900)
[2025-01-27 00:38] LABS: Alanine Aminotransferase 53 U/L (0-40); Alkaline Phosphatase 52 U/L (39-117); Anion Gap 14 (12-20); Aspartate Amino Transferase 70 U/L (5-37); Bilirubin Direct 0.2 mg/dL (0.0-0.5); Bilirubin Total 0.5 mg/dL (0.0-1.0); Blood Urea Nitrogen 14 mg/dL (9-16); Carbon Dioxide 28 mmol/L (22-29); Chloride 100 mmol/L (96-108); Cholesterol 190 mg/dL (<200); Creatinine Clr Calc Pharmacy 142.2; Estimated Glomerular Filt Rate > 60; Glucose Random 96 mg/dL (60-115); HDL Cholesterol 35 mg/dL (>40); LDL Cholesterol Calculated 126 mg/dL (<100); Potassium 3.6 mmol/L (3.3-5.1); Sodium 138 mmol/L (135-145); Total Protein 7.2 g/dL (6.5-8.0); Triglycerides 147 mg/dL (<150)
[2025-01-27 06:34] LABS: Estimated Average Glucose 103 mg/dL; Hemoglobin A1C 142.2818 umol/L; Hemoglobin A1c % 5.2 % (<6.0); Total Hemoglobin (HGBA1C) 4314.5934 umol/L
--- NOTE | 2025-01-27 10:16 | P.PNPSI_ITS ---
Subjective Subjective Date of Service: 01/27/25 Reason For Visit: yenny Interim History: in bed, rousable, sleepy. notes he may feel down and need extra rest these days due to cocaine withdrawal. irritable. yeah, i'm trying to get rest right now. it's more important. more important than talking about cocaine. per staff, 3-day up 01/31. polite, paranoid. slept 7 hours. retracted release for his mother. Mental Status Exam Mental Status Exam Narrative: disheveled, hospital attire. no PMA/PMR. not cooperative. speech decr rate, decr amount, decr loudness, incr latency. accented. thoughts linear. affect blunted, hypo-intense, non-labile. mood irritable. no SI/SIBI/HI/AVH expressed. Diagnostics Vital Signs (24Hr): Vital Signs - 24 hr 01/26/25 19:40 Temperature 98.4 F Pulse Rate 69 Respiratory Rate 16 Blood Pressure 127/80 Pulse Oximetry 98 Oxygen Delivery Method Room Air BMI result Body Mass Index 33.5 Labs 01/25/25 09:25 01/26/25 19:05 Labs: Laboratory Results - last 48 hr 01/26/25 01/26/25 07:05 19:05 Sodium 138 Potassium 3.6 Chloride 100 Carbon Dioxide 28 Anion Gap 14 BUN 14 Creatinine 0.97 Estim Creat Clear Calc 142.2 Estimated GFR > 60 Random Glucose 96 Estimat Average Glucose 103 Hemoglobin A1c % 5.2 Calcium 10.0 Total Bilirubin 0.5 Direct Bilirubin 0.2 AST 70 H ALT 53 H Alkaline Phosphatase 52 Total Protein 7.2 Albumin 4.0 Triglycerides 147 Cholesterol 190 LDL Cholesterol, Calc 126 H HDL Cholesterol 35 L Vitamin B12 479 Folate 6.8 TSH 1.12 Influenza Type A (PCR) NEGATIVE Influenza Type B (PCR) NEGATIVE RSV RNA Qual (PCR) NEGATIVE SARS-CoV-2 RNA (RT-PCR) NEGATIVE Medications Medications Current Medications Acetaminophen (Acetaminophen 325 Mg Tablet) 650 mg PO Q6H PRN PRN Reason: Headache/Pain, Scale 1-10 Al Hydroxide/Mg Hydroxide (Magnesium Hydrox/Alum Hydrox 30 Ml Oral.Susp) 30 ml PO Q6H PRN PRN Reason: Heartburn/Nausea Benzocaine (Throat Lozenge, Medicated Lozenge) 1 lozenge MUCOUS MEM Q2H PRN PRN Reason: Sore Throat Last Admin: 01/26/25 16:37 Dose: 1 lozenge Divalproex Sodium (Divalproex Sodium 500 Mg Tablet.Dr) 2,000 mg PO BEDTIME ELLIOT Guaifenesin (Guaifenesin La 600 Mg Tab.Er.12h) 1,200 mg PO BID PRN PRN Reason: Cough Last Admin: 01/25/25 19:46 Dose: 1,200 mg Hydroxyzine HCl (Hydroxyzine Hcl 25 Mg Tablet) 25 mg PO Q6H PRN PRN Reason: mild anxiety Lorazepam (Lorazepam 1 Mg Tablet) 2 mg PO TID PRN PRN Reason: agitation Magnesium Hydroxide (Milk Of Magnesia 30 Ml Oral.Susp) 30 ml PO DAILY PRN PRN Reason: Constipation Nicotine Polacrilex (Nicotine Polacrilex 2 Mg Gum) 4 mg BUCCAL Q2H PRN PRN Reason: Nicotine Cravings Last Admin: 01/25/25 19:51 Dose: 4 mg Olanzapine (Olanzapine 10 Mg Tablet) 10 mg PO BEDTIME ELLIOT Last Admin: 01/26/25 20:07 Dose: 10 mg Trazodone HCl (Trazodone Hcl 50 Mg Tablet) 50 mg PO BEDTIME MRX1 PRN PRN Reason: Insomnia Allergies Allergies Allergy/AdvReac Type Severity Reaction Status Date / Time haloperidol [From HALDOL] Allergy Unknown UNKNOWN Verified 01/23/25 01:29 Pork/Porcine Containing AdvReac Unknown Verified 01/25/25 02:13 Products Assessment & Plan Assessment & Plan (1) Bipolar disorder: Status: Acute Code(s): F31.9 - Bipolar disorder, unspecified (2) Cocaine use disorder: Status: Acute Code(s): F14.10 - Cocaine abuse, uncomplicated (3) Cognitive disorder: Status: Acute Code(s): F09 - Unspecified mental disorder due to known physiological condition Plan 01/25: restart/increase VPA to 1500 mg QHS. has recently been Rxed 750 QHS, taking only 250 QHS per pt's mother, and at last admission at [facility] M5 was discharged on 2250. continue olanzapine 10 mg QHS. per collateral from mother, pt has been on this medication for quite some time and she would be concerned about DCing it. will leave it for now and reassess as hospitalization progresses. was discharged from on abilify 15 daily. concern for depressive phase and lack of anti-depressant regimen. will discuss tomorrow. supportive care for cocaine withdrawal. memory concerns - admission labs, head CT. 01/26: pt resting, isolative. likely withdrawing from cocaine. allow rest, post-pone discussion re anti-depressant until through cocaine withdrawal. refused labs today for memory w/u. head CT pending. 01/27: head CT unremarkable. irritable, doesn't want to talk about cocaine. sleepy. per staff, paranoid. retracted JERI for his mother. increase HS VPA to 2000 mg. Reason for continued inpatient stay Substantial Risk for: harm to self, harm to others, inability to function and rapid decompensation Time Spent With Patient Time: Total time managing care of this patient today __25__ minutes.
[2025-01-27 20:00] VITALS: BP 138/71; PULSE 82; RESP 16; TEMP 36.7; O2SAT 98
[2025-01-27] MEDS: Divalproex Sodium 500 MG TABLET.DR 2000 MG PO (20:23)
[2025-01-27] MEDS: OLANZapine 10 MG TABLET PO (20:24)
[2025-01-28 07:05] VITALS: BP 120/66; PULSE 58; RESP 14; TEMP 36.4; O2SAT 95
--- NOTE | 2025-01-28 11:29 | HO.PSYCHPN ---
Subjective Subjective Date of Service: 01/28/25 Reason For Visit: yenny Interim History: up and about this morning, affect more flexible. pleasant. VPA dosing strategy discussed, pt agrees to compromise for the time being at 1500 mg at HS. per staff, 3-day up friday. paranoid. focused on D/C. +RIS. denies Sx. slept 7 hours. Mental Status Exam Mental Status Exam Narrative: adequately dressed and groomed. no PMA/PMR. cooperative. speech nml rate, amount, loudness, latency. accented. thoughts linear. affect constricted, normo-intense, non-labile. mood normal. no SI/SIBI/HI/AVH. Diagnostics Vital Signs (24Hr): Vital Signs - 24 hr 01/27/25 20:00 01/28/25 07:05 Temperature 98.1 F 97.5 F Pulse Rate 82 58 Respiratory Rate 16 14 Blood Pressure 138/71 120/66 Pulse Oximetry 98 95 Oxygen Delivery Method Room Air Room Air BMI result Body Mass Index 33.5 Labs 01/25/25 09:25 01/26/25 19:05 Labs: Laboratory Results - last 48 hr 01/26/25 19:05 Sodium 138 Potassium 3.6 Chloride 100 Carbon Dioxide 28 Anion Gap 14 BUN 14 Creatinine 0.97 Estim Creat Clear Calc 142.2 Estimated GFR > 60 Random Glucose 96 Estimat Average Glucose 103 Hemoglobin A1c % 5.2 Calcium 10.0 Total Bilirubin 0.5 Direct Bilirubin 0.2 AST 70 H ALT 53 H Alkaline Phosphatase 52 Total Protein 7.2 Albumin 4.0 Triglycerides 147 Cholesterol 190 LDL Cholesterol, Calc 126 H HDL Cholesterol 35 L Vitamin B12 479 Folate 6.8 TSH 1.12 Medications Medications Current Medications Acetaminophen (Acetaminophen 325 Mg Tablet) 650 mg PO Q6H PRN PRN Reason: Headache/Pain, Scale 1-10 Al Hydroxide/Mg Hydroxide (Magnesium Hydrox/Alum Hydrox 30 Ml Oral.Susp) 30 ml PO Q6H PRN PRN Reason: Heartburn/Nausea Benzocaine (Throat Lozenge, Medicated Lozenge) 1 lozenge MUCOUS MEM Q2H PRN PRN Reason: Sore Throat Last Admin: 01/26/25 16:37 Dose: 1 lozenge Divalproex Sodium (Divalproex Sodium 500 Mg Tablet.) 1,500 mg PO BEDTIME ELLIOT Guaifenesin (Guaifenesin La 600 Mg Tab.Er.12h) 1,200 mg PO BID PRN PRN Reason: Cough Last Admin: 01/25/25 19:46 Dose: 1,200 mg Hydroxyzine HCl (Hydroxyzine Hcl 25 Mg Tablet) 25 mg PO Q6H PRN PRN Reason: mild anxiety Lorazepam (Lorazepam 1 Mg Tablet) 2 mg PO TID PRN PRN Reason: agitation Magnesium Hydroxide (Milk Of Magnesia 30 Ml Oral.Susp) 30 ml PO DAILY PRN PRN Reason: Constipation Nicotine Polacrilex (Nicotine Polacrilex 2 Mg Gum) 4 mg BUCCAL Q2H PRN PRN Reason: Nicotine Cravings Last Admin: 01/25/25 19:51 Dose: 4 mg Olanzapine (Olanzapine 10 Mg Tablet) 10 mg PO BEDTIME ELLIOT Last Admin: 01/27/25 20:24 Dose: 10 mg Allergies Allergies Allergy/AdvReac Type Severity Reaction Status Date / Time haloperidol [From HALDOL] Allergy Unknown UNKNOWN Verified 01/23/25 01:29 Pork/Porcine Containing AdvReac Unknown Verified 01/25/25 02:13 Products Assessment & Plan Assessment & Plan (1) Bipolar disorder: Status: Acute Code(s): F31.9 - Bipolar disorder, unspecified (2) Cocaine use disorder: Status: Acute Code(s): F14.10 - Cocaine abuse, uncomplicated (3) Cognitive disorder: Status: Acute Code(s): F09 - Unspecified mental disorder due to known physiological condition Plan 01/25: restart/increase VPA to 1500 mg QHS. has recently been Rxed 750 QHS, taking only 250 QHS per pt's mother, and at last admission at [facility] M[facility] was discharged on 2250. continue olanzapine 10 mg QHS. per collateral from mother, pt has been on this medication for quite some time and she would be concerned about DCing it. will leave it for now and reassess as hospitalization progresses. was discharged from M5 on abilify 15 daily. concern for depressive phase and lack of anti-depressant regimen. will discuss tomorrow. supportive care for cocaine withdrawal. memory concerns - admission labs, head CT. 01/26: pt resting, isolative. likely withdrawing from cocaine. allow rest, post-pone discussion re anti-depressant until through cocaine withdrawal. refused labs today for memory w/u. head CT pending. 01/27: head CT unremarkable. irritable, doesn't want to talk about cocaine. sleepy. per staff, paranoid. retracted JERI for his mother. increase HS VPA to 2000 mg. 01/28: up and about today, mood much improved, cooperative, less MINERVA. agrees to compromise at 1500 mg VPA at HS, plan to draw labs friday and discharge friday with [employer] aftercare. Reason for continued inpatient stay Substantial Risk for: harm to self, harm to others, inability to function and rapid decompensation Time Spent With Patient Time: Total time managing care of this patient today __25__ minutes.
[2025-01-28 19:47] VITALS: BP 123/77; PULSE 63; RESP 18; TEMP 36.9; O2SAT 98
[2025-01-28] MEDS: Divalproex Sodium 500 MG TABLET.DR 1500 MG PO (20:14)
[2025-01-28] MEDS: OLANZapine 10 MG TABLET PO (20:14)
[2025-01-29 12:53] VITALS: BP 116/70; PULSE 68; RESP 20; TEMP 36.6; O2SAT 97
--- NOTE | 2025-01-29 17:07 | P.PNPSI_ITS ---
Subjective Subjective Date of Service: 01/29/25 Reason For Visit: yenny Interim History: sleeping in the morning, irritably responds to MD's greeting with, i'm trying to sleep, rolling away from MD. per staff, 3-day up 01/31. attending groups. eating well. pleasant. guarded, hypervig. took 1500 VPA. slept 9 hours. singing and dancing last capo. Mental Status Exam Mental Status Exam Narrative: adequately dressed and groomed. no PMA/PMR. not cooperative. speech nml rate, decr amount, nml loudness, nml latency. accented. thoughts linear. affect constricted, normo-intense, non-labile. mood not assessed. no SI/SIBI/HI/AVH expressed. Diagnostics Vital Signs (24Hr): Vital Signs - 24 hr 01/28/25 19:47 01/29/25 12:53 Temperature 98.4 F 97.8 F Pulse Rate 63 68 Respiratory Rate 18 20 Blood Pressure 123/77 116/70 Pulse Oximetry 98 97 Oxygen Delivery Method Room Air Room Air BMI result Body Mass Index 33.5 Labs 01/25/25 09:25 01/26/25 19:05 Medications Medications Current Medications Acetaminophen (Acetaminophen 325 Mg Tablet) 650 mg PO Q6H PRN PRN Reason: Headache/Pain, Scale 1-10 Al Hydroxide/Mg Hydroxide (Magnesium Hydrox/Alum Hydrox 30 Ml Oral.Susp) 30 ml PO Q6H PRN PRN Reason: Heartburn/Nausea Benzocaine (Throat Lozenge, Medicated Lozenge) 1 lozenge MUCOUS MEM Q2H PRN PRN Reason: Sore Throat Last Admin: 01/26/25 16:37 Dose: 1 lozenge Divalproex Sodium (Divalproex Sodium 500 Mg Tablet.Dr) 1,500 mg PO BEDTIME ELLIOT Last Admin: 01/28/25 20:14 Dose: 1,500 mg Guaifenesin (Guaifenesin La 600 Mg Tab.Er.12h) 1,200 mg PO BID PRN PRN Reason: Cough Last Admin: 01/25/25 19:46 Dose: 1,200 mg Hydroxyzine HCl (Hydroxyzine Hcl 25 Mg Tablet) 25 mg PO Q6H PRN PRN Reason: mild anxiety Lorazepam (Lorazepam 1 Mg Tablet) 1 mg PO TID PRN PRN Reason: agitation Magnesium Hydroxide (Milk Of Magnesia 30 Ml Oral.Susp) 30 ml PO DAILY PRN PRN Reason: Constipation Nicotine Polacrilex (Nicotine Polacrilex 2 Mg Gum) 4 mg BUCCAL Q2H PRN PRN Reason: Nicotine Cravings Last Admin: 01/25/25 19:51 Dose: 4 mg Olanzapine (Olanzapine 10 Mg Tablet) 10 mg PO BEDTIME ELLIOT Last Admin: 01/28/25 20:14 Dose: 10 mg Allergies Allergies Allergy/AdvReac Type Severity Reaction Status Date / Time haloperidol [From HALDOL] Allergy Unknown UNKNOWN Verified 01/23/25 01:29 Pork/Porcine Containing AdvReac Unknown Verified 01/25/25 02:13 Products Assessment & Plan Assessment & Plan (1) Bipolar disorder: Status: Acute Code(s): F31.9 - Bipolar disorder, unspecified (2) Cocaine use disorder: Status: Acute Code(s): F14.10 - Cocaine abuse, uncomplicated (3) Cognitive disorder: Status: Acute Code(s): F09 - Unspecified mental disorder due to known physiological condition Plan 01/25: restart/increase VPA to 1500 mg QHS. has recently been Rxed 750 QHS, taking only 250 QHS per pt's mother, and at last admission at [facility] M5 was discharged on 2250. continue olanzapine 10 mg QHS. per collateral from mother, pt has been on this medication for quite some time and she would be concerned about DCing it. will leave it for now and reassess as hospitalization progresses. was discharged from M5 on abilify 15 daily. concern for depressive phase and lack of anti-depressant regimen. will discuss tomorrow. supportive care for cocaine withdrawal. memory concerns - admission labs, head CT. 01/26: pt resting, isolative. likely withdrawing from cocaine. allow rest, post-pone discussion re anti-depressant until through cocaine withdrawal. refused labs today for memory w/u. head CT pending. 01/27: head CT unremarkable. irritable, doesn't want to talk about cocaine. sleepy. per staff, paranoid. retracted JERI for his mother. increase HS VPA to 2000 mg. 01/28: up and about today, mood much improved, cooperative, less MINERVA. agrees to compromise at 1500 mg VPA at HS, plan to draw labs friday and discharge friday with [facility] aftercare. 01/29: in bed, irritable. took VPA 1500 mg last night. continue current mgmt. Reason for continued inpatient stay Substantial Risk for: harm to self, inability to function and rapid decompensation Time Spent With Patient Time: Total time managing care of this patient today ____ minutes.
[2025-01-29 18:45] VITALS: BP 133/86; PULSE 72; RESP 18; TEMP 36.4; O2SAT 100
[2025-01-29] MEDS: Divalproex Sodium 500 MG TABLET.DR 1500 MG PO (20:28)
[2025-01-29] MEDS: OLANZapine 10 MG TABLET PO (20:28)
[2025-01-30 11:57] VITALS: BP 125/81; PULSE 63; RESP 16; TEMP 36.9; O2SAT 98
--- NOTE | 2025-01-30 11:58 | PM.PSYDC ---
DS: Providers Provider Date of Service: 01/30/25 Date of admission: 01/25/25 11:39 Date of discharge: 01/31/25 Primary care physician: Unknown Physician DS: Diagnosis Discharge Diagnosis (1) Bipolar disorder: Status: Acute (2) Cocaine use disorder: Status: Acute (3) Cognitive disorder: Status: Acute DS: Medications Discharge Medications Home Medications: Previous Rx's ?Medication ?Instructions ?Recorded divalproex 500 mg tablet,delayed 1,500 mg (3 x 500 mg) PO BEDTIME 01/30/25 release 30 days #90 tabs olanzapine 10 mg tablet 10 mg PO BEDTIME 30 days #30 tabs 01/30/25 omeprazole 20 mg capsule,delayed 20 mg PO DAILY@0630 30 days #30 01/30/25 release caps Mental Status Exam Mental Status Exam Narrative: adequately dressed and groomed. no PMA/PMR. cooperative. speech nml rate, decr amount, nml loudness, nml latency. accented. thoughts linear. affect flexible, normo-intense, non-labile. mood good. no SI/SIBI/HI/AVH. Data Data Completed and Pending Completed studies during hospitalization [Text1]: 01/25/25 01/25/25 01/26/25 05:57 09:25 07:05 WBC 10.3 RBC 4.76 Hgb 15.2 Hct 42.7 MCV 89.7 MCH 31.9 MCHC 35.6 RDW 13.2 Plt Count 285 MPV 10.3 Immature Gran % (Auto) 0.5 H Neut % (Auto) 70.7 Lymph % (Auto) 20.3 [place] % (Auto) 8.0 Eos % (Auto) 0.3 Baso % (Auto) 0.2 Lymph # (Auto) 2.1 [place] # (Auto) 0.8 Eos # (Auto) 0.0 Baso # (Auto) 0.0 Abs Immat Gran (auto) 0.05 H Absolute Neuts (auto) 7.3 Absolute Nucleated RBC 0.000 Nucleated RBC % (auto) 0.0 Sodium 136 Potassium 3.0 L D Chloride 92 L Carbon Dioxide 36 H Anion Gap 11 L BUN 10 Creatinine 0.85 Estim Creat Clear Calc 129.7 Estimated GFR > 60 Random Glucose 91 Estimat Average Glucose Hemoglobin A1c % Calcium 9.7 Total Bilirubin Direct Bilirubin AST ALT Alkaline Phosphatase Total Protein Albumin Triglycerides Cholesterol LDL Cholesterol, Calc HDL Cholesterol Vitamin B12 Folate TSH Influenza Type A (PCR) NEGATIVE NEGATIVE Influenza Type B (PCR) NEGATIVE NEGATIVE RSV RNA Qual (PCR) NEGATIVE NEGATIVE SARS-CoV-2 RNA (RT-PCR) NEGATIVE NEGATIVE S. pyogenes GrpA ANDI Negative 01/26/25 19:05 WBC RBC Hgb Hct MCV MCH MCHC RDW Plt Count MPV Immature Gran % (Auto) Neut % (Auto) Lymph % (Auto) [place] % (Auto) Eos % (Auto) Baso % (Auto) Lymph # (Auto) [place] # (Auto) Eos # (Auto) Baso # (Auto) Abs Immat Gran (auto) Absolute Neuts (auto) Absolute Nucleated RBC Nucleated RBC % (auto) Sodium 138 Potassium 3.6 Chloride 100 Carbon Dioxide 28 Anion Gap 14 BUN 14 Creatinine 0.97 Estim Creat Clear Calc 142.2 Estimated GFR > 60 Random Glucose 96 Estimat Average Glucose 103 Hemoglobin A1c % 5.2 Calcium 10.0 Total Bilirubin 0.5 Direct Bilirubin 0.2 AST 70 H ALT 53 H Alkaline Phosphatase 52 Total Protein 7.2 Albumin 4.0 Triglycerides 147 Cholesterol 190 LDL Cholesterol, Calc 126 H HDL Cholesterol 35 L Vitamin B12 479 Folate 6.8 TSH 1.12 Influenza Type A (PCR) Influenza Type B (PCR) RSV RNA Qual (PCR) SARS-CoV-2 RNA (RT-PCR) S. pyogenes GrpA ANDI DS: Summary Hospital Course Hospital Course: per 01/25 admission note: HPI Narrative: per CARE team rupinder valentine WADE after having relapsed on cocaine and running out in the street naked and behaving in an agitated manner with PD when EMS arrived for him. also per CARE team serge, pt was noted to not be taking his psych meds. pt reported that after 9 months sober he had relapsed to cocaine use 3 days prior. although he endorsed anx/dep, he denied SI/HI and appeared to struggle to recall biographic events. on interview with CARE team, pt described himself as depressed and anxious and presented with an irritable affect. pt informed CARE team staff that he felt like killing himself after the interview was completed, and then he became verbally aggressive with ED staff. he was ultimately given IM ativan and zyprexa for dangerous agitation. per collateral from pt's mother, pt had made SI statements to her the night prior to his being brought to the hospital. she reported he has had unexplained severe memory problems over the past 6 months such that she sometimes has to help him get food or show him where his room is in the house. on interview with MD, pt is calm, and cooperative, hypo-intense. he is direct and logical, although he struggles to answer some historical questions citing very poor memory function in the past 6 months. denies safety concerns. medications are discussed, pt agrees to restart VPA and anti-psychotic, saying he has not really been consistently taking anything for the past year. urges MD to call his mother for medications collateral. MD speaks with mother and she supports remaining on zyprexa for now. VPA dosing discussed with her as well. mother shares her concerns for son's memory, some w/u for that discussed as well. Past Psychiatric History: hosps: Multiple inpatient hospitalizations including [place] in 2022, 2019, [facility]. Multiple section 35's. SA: denies SIB: denies outpt: none for the past 2 years, on waiting list for [facility] Medical Evaluation Reviewed: Yes COUNT INCLUDES THE [facility] Medical History Cocaine use disorder Bipolar 1 disorder Family History: Bipolar disorder and schizoaffective disorder. Social History: Single, no children. Born in [place]. Moved to age 6. Parents /. Father in [place]. Has GED. On social security. On probation following release for violating RO. not working the past 3-4 years. Substance History: tobacco - 1 ppd alcohol - denies cannabis - utox POS cocaine - utox POS. reports lapse of only the past 3 days after 9 months sober. denies use of other substances. h/o numerous section 35s. Trauma History: Deferred Precis: 01/25: restart/increase VPA to 1500 mg QHS. has recently been Rxed 750 QHS, taking only 250 QHS per pt's mother, and at last admission [facility] was discharged on 2250. continue olanzapine 10 mg QHS. per collateral from mother, pt has been on this medication for quite some time and she would be concerned about DCing it. will leave it for now and reassess as hospitalization progresses. was discharged from on abilify 15 daily. concern for depressive phase and lack of anti-depressant regimen. will discuss tomorrow. supportive care for cocaine withdrawal. memory concerns - admission labs, head CT. 01/26: pt resting, isolative. likely withdrawing from cocaine. allow rest, post-pone discussion re anti-depressant until through cocaine withdrawal. refused labs today for memory w/u. head CT pending. 01/27: head CT unremarkable. irritable, doesn't want to talk about cocaine. sleepy. per staff, paranoid. retracted JERI for his mother. increase HS VPA to 2000 mg. 01/28: up and about today, mood much improved, cooperative, less MINERVA. agrees to compromise at 1500 mg VPA at HS, plan to draw labs friday and discharge friday with [facility] aftercare. 01/29: in bed, irritable. took VPA 1500 mg last night. continue current mgmt. 01/30: more pleasant today. meds reviewed, reconciled, prescribed. aftercare in place. 3-day up tomorrow. not committable at present. discharge tomorrow. 01/31: stable. discharged as per plan. Time Spent with Patient Time attestation: Total time managing care of this patient today _35___ minutes. Discharge Plan Discharge Anticipated Discharge Date/Time: 01/31/25 11:00 Patient Disposition: Home, Self-Care Discharge Diagnosis: Bipolar I Disorder, MRE Manic Cocaine Use Disorder Referrals: Estuardo Leon (Therapy) [Other] - 02/02/25 10:00 am (IN OFFICE APPOINTMENT -Please arrive 15 minutes early to your appointment in order to fill out necessary paperwork. -Please bring your insurance card with you to the appointment as it will be needed to complete the intake process. ) Breanne Shi (Psychiatry) [Other] - 03/01/25 1:30 pm (TELEHEALTH APPOINTMENT -Psychiatric Evaluation ) Breanne Shi (Psychiatry) [Other] - 03/30/25 11:20 am (TELEHEALTH APPOINTMENT -Medication Management ) Eugene Herr FNP-C [Nurse Practitioner] - 02/17/25 9:30 am (01-31-25 Your new patient appt has been scheduled for 02-17-25 @ 9:30am) Discharge Medications: New divalproex 500 mg Tablet,Delayed Release (Dr/Ec) 1,500 mg PO BEDTIME 30 Days Qty: 90 0RF Continued olanzapine 10 mg tablet 10 mg PO BEDTIME 30 Days Qty: 30 0RF omeprazole 20 mg Capsule,Delayed Release(Dr/Ec) 20 mg PO DAILY@0630 30 Days Qty: 30 0RF Discontinued divalproex 250 mg tablet,delayed release (DR/EC) 750 mg PO BEDTIME Discharge Orders: Discharge Order (Routine); Ordered 01/31/25 Ordered By: Ad Monge Diet: Advance to usual diet Activity on Discharge: As tolerated Stand Alone Forms: Patient Portal Discharge page, Community Support Print Language: Telugu Care Plan Goals: remain safe, stable, and sober in the outpatient treatment setting Health Concerns: none Plan of Treatment: take medications as prescribed, attend appointments as scheduled Assessment: not at imminent risk of harm to self or others Discharge Date/Time: 01/31/25 10:47
[2025-01-30 20:00] VITALS: BP 112/70; PULSE 61; RESP 15; TEMP 36.4; O2SAT 98
[2025-01-30] MEDS: Divalproex Sodium 500 MG TABLET.DR 1500 MG PO (20:07)
[2025-01-30] MEDS: OLANZapine 10 MG TABLET PO (20:07)
--- NOTE | 2025-01-30 20:08 | PC.NURSE ---
refused labs-offered education and support but still refuses
--- NOTE | 2025-01-31 11:04 | PC.NURSE ---
Patient easily engaged for discharge summary review. Reports he is doing good . States it was helpful to be here for stabilization. Denies depression or sadness, denies anxiety, denies SI/HI plan or intent. Denies perceptual disturbances, denies A/V hallucinations, no overt psychosis or expressed delusions. Reports feeling ready for discharge. Discharge appointments reviewed with patient reports understanding. Discharge medications reviewed with patient reports understanding. All belongings taken with patient. Crisis numbers provided to patient.
== END 2025-01-31 10:47 | disposition home or self-care (01) | DRG 885 ==
LOC: HO.ED 01-25 12:50 → HO.PADLT16 01-25 13:13
PROVIDERS: Emergency Medicine; Registered Nurse; Admitting Provider Psychiatry & Neurology Psychiatry; Emergency Provider Emergency Medicine; Visit Provider Psychiatry & Neurology Psychiatry
DX: F31.9 Bipolar disorder, unspecified (principal); F17.210 Nicotine dependence, cigarettes, uncomplicated; R41.9 Unspecified symptoms and signs involving cognitive functions and awareness; F14.10 Cocaine abuse, uncomplicated; Z71.6 Tobacco abuse counseling; Z20.822 Contact with and (suspected) exposure to COVID-19; Z79.899 Other long term (current) drug therapy
CPT/HCPCS: 0241U; 36415; 70450; 80048; 80061; 80076; 80143; 80179; 80307; 81003; 82607; 82746; 83036; 84443; 85025; 87651; 93005; 99285; J2060; J2359; S9485

== ENCOUNTER → 2025-01-24 09:01 | Outpatient (BNV) | payer MEDICARE, MEDICAID, SELFPAY | PROVIDERS: Emergency Provider Emergency Medicine; Visit Provider Internal Medicine Cardiovascular Disease | DX: R94.31 Abnormal electrocardiogram [ECG] [EKG] (principal); Z13.6 Encounter for screening for cardiovascular disorders | CPT/HCPCS: 93010 ==

== ENCOUNTER 2025-01-25 11:39 | Outpatient (BNV) | payer MEDICARE, MEDICAID, SELFPAY | END 2025-01-25 16:06 | PROVIDERS: Admitting Provider Psychiatry & Neurology Psychiatry; Emergency Provider Emergency Medicine; Visit Provider Radiology Vascular & Interventional Radiology | DX: R41.3 Other amnesia (principal) | CPT/HCPCS: 70450 ==

== ENCOUNTER → 2025-01-25 11:39 | Outpatient (BNV) | payer MEDICARE, MEDICAID, SELFPAY | PROVIDERS: Admitting Provider Psychiatry & Neurology Psychiatry; Emergency Provider Emergency Medicine; Visit Provider Psychiatry & Neurology Psychiatry | DX: F31.13 Bipolar disorder, current episode manic without psychotic features, severe (principal); F14.10 Cocaine abuse, uncomplicated; F09 Unspecified mental disorder due to known physiological condition | CPT/HCPCS: 90792; 99231; 99232 ==

== ENCOUNTER 2025-02-17 09:30 | Outpatient (AMB) | payer MEDICARE, MEDICAID, SELFPAY ==
[2025-02-17 09:31] VITALS: BP 114/66; PULSE 72; RESP 20; TEMP 36.9; O2SAT 96; BMI 34.8
--- NOTE | 2025-02-17 09:31 | MHC.PC.OV ---
Vital Signs 02/17/25 09:31 Height 6 ft 3 in Weight 278 lb 6.4 oz BMI 34.8 BP 114/66 Blood Pressure Location Lt brachial Position Sitting Respiration 20 Pulse 72 Pulse Source Pulse Oximeter Temp 98.5 F Temp Source Oral Pulse Oximetry (%) 96 Oxygen Delivery Method Room Air Intake Visit Reasons: establish care Intake Note: Patient is a new patient here to establish care. Transferring care from a previous PCP in [place], [place], but does not recall the name and/or location. Medical records have not been requested and have not been received. Investment Trader Required: No Accompanied by: Self / Same As Patient Allergies haloperidol [From HALDOL] Allergy (Unknown, Verified 02/17/25 09:48) UNKNOWN Pork/Porcine Containing Products Adverse Reaction (Verified 02/17/25 09:48) Unknown Medication List - Last Reconciled 02/17/25 by VENICE Arteaga divalproex 1,500 mg PO BEDTIME olanzapine 10 mg PO BEDTIME 30 days Tobacco use date assessed: 02/17/25 Dental Screening Dental Screen Date: 02/17/25 Did you have a dental visit in the last 12 months?: Yes Did you have a dental problem in the last 6 months where you did not have access to dental care?: No Was dental information given to patient?: Patient has dentist HPI establish care HPI Details Previous PCP: Rafael PATRICIA Reprots that he does not remember Last visit:does not remember Last PE: does not remember Specialist: new psychiatrist, but he does not remember the name or where OBGYN:n/a Past medical history: Bipolar, cocaine use disorder, cognitive disorder Medications: Depakote 1500mg at bedtime, olanzapine 10 mg bedtime Family HX: Does not remember Problem: The patient is a 39-year-old male presenting to establish care with new provider. He reports memory impairment. This issue has been ongoing for about a year and mainly affects his short-term memory, as he can remember older events but struggles with recent memories. The memory challenges are interfering with his ability to handle day-to-day responsibilities and financial matters, particularly impacting his SSI benefits. His medication regimen includes Depakote and Olanzapine; however, these do not seem to be managed by a specialist. From a cardiac and gastrointestinal perspective, the patient denies shortness of breath, chest pain, or any digestive issues. He consumes fast food frequently, acknowledging this may be leading to a rise in cholesterol levels. Despite the presence of elevated liver enzymes, he denies alcohol consumption. [facility] Medical History (Updated 02/17/25 @ 10:39 by VENICE Arteaga) Cocaine use disorder Bipolar 1 disorder Surgical History No pertinent past surgical history Family History Father No problems noted. Mother No problems noted. Other FH: mental illness Social History Household Members: Family Housing: House Do you presently have visiting nurse or other home services: No Alcohol intake: never Patient Tobacco Use Status: Current everyday Tobacco user Tobacco use type: Cigarette Cigarette Packs Per Day: 1 Cigarettes Per Day: 20 Years Smoked: 20 e-Cigarette/Vaping Use: Never Used Second Hand Smoke Exposure: No Substance Use Type: Marijuana service: No Current occupational status: disabled Sexual orientation: Don't Know Cognitive needs: No Hearing needs: No Vision needs: No Questionnaire PHQ-9 Over the last 2 weeks, how often have you been bothered by any of the following problems? 1. Little interest or pleasure in doing things: not at all 2. Feeling down, depressed, or hopeless: nearly every day 3. Trouble falling or staying asleep, or sleeping too much: more than half the days 4. Feeling tired or having little energy: several days 5. Poor appetite or overeating: nearly every day 6. Feeling bad about yourself - or that you are a failure or have let yourself or your family down: nearly every day 7. Trouble concentrating on things, such as reading the newspaper or watching television: nearly every day 8. Moving or speaking so slowly that other people could have noticed. Or the opposite - being so fidgety or restless that you have been moving around a lot more than usual: nearly every day 9. Thoughts that you would be better off or of hurting yourself in some way: nearly every day Total score: 21 Depression Screening Interpretation: Positive Depression Screening Done: Yes 21966 - PHQ-9 Billing: Yes Source: Developed by Drs. Rolando Melo, Faviola Hi, Maco Spangler and colleagues, with an educational juan jose from [employer]. Thrive Questionnaire Date Thrive assessed: 02/17/25 I am a: Patient What is your living situation today?: I have a place to live, but I am worried about losing it in the future Within the past 12 months, did the food you bought not last and you didn't have the money to get more?: Often true Within the past 12 months, did you worry whether your food would run out before you got money to buy more?: Often true Do you have trouble paying for medicines?: No Do you have trouble getting transportation to medical appointments?: Yes Do you have trouble paying your heating and electricity bill?: Yes Do you have trouble taking care of your child, family member or friend?: I choose not to answer this question Do you have trouble with day-to-day activities such as bathing, preparing meals, shopping, managing finances, etc.?: No Are you currently unemployed and looking for a job?: No Are you interested in more education?: No Please select the resources that you would like help with: Daily support Currently or been in a relationship where the following occur: Controlled Emotionally THRIVE Score: 6 AUDIT C Alcohol Use Questionnaire (AUDIT-C) 1. How often do you have a drink containing alcohol?: Never Total Score: 0 Score Reviewed/Action Taken: No PARVIN-7 AMB Questionnaire PARVIN-7 Date PARVIN - 7 assessed: 02/17/25 Feeling nervous, anxious, or on edge: 1 = Several days Not being able to stop or control worryin = Nearly every day Worrying too much about different things: 3 = Nearly every day Trouble relaxin = Nearly every day Being so restless that it is hard to sit still: 3 = Nearly every day Becoming easily annoyed or irritable: 3 = Nearly every day Feeling afraid as if something awful might happen: 3 = Nearly every day Total PARVIN-7 score (0-4 normal; 5-9 mild; 10-14 moderate; 15-21 severe): 19 Source: Developed by Drs. Rolando Melo, Maco Velazco and colleagues, with an educational juan jose from [employer]. PARVIN-7 Assessment Billing PARVIN-7 Assessment Tool: PARVIN-7 Assessment 48166 Review of Systems Const Denies headache(s) Eyes Denies loss of vision ENT Denies vertigo, Denies dizziness, Denies headache(s) and Denies sore throat Card Denies chest pain, Denies leg edema and Denies lightheadedness Resp Denies cough, Denies hemoptysis and Denies wheezing GI Denies abdominal pain, Denies melena, Denies constipation, Denies diarrhea and Denies vomiting Denies dysuria, Denies urinary frequency and Denies urinary urgency Musc Denies arthralgias, Denies joint swelling, Denies numbness and Denies tingling Neuro Denies Abnormal speech present, Denies behavioral changes, Denies vertigo, Denies dizziness, Denies headache(s), Denies loss of vision, Reports memory loss (short term memory loss), Denies numbness and Denies tingling Psych Reports anxiety, Denies behavioral changes, Reports depression, Reports memory loss (short term memory loss) and Denies panic attacks Isaac/Lymph Denies easy bleeding and Denies easy bruising Aller/Immun Denies wheezing Physical exam (Primary Care) Vital Signs: Last Vital Signs Temp 98.5 F 02/17/25 09:31 Pulse 72 02/17/25 09:31 Resp 20 02/17/25 09:31 BP 114/66 02/17/25 09:31 Pulse Ox 96 02/17/25 09:31 Oxygen Delivery Method Room Air 02/17/25 09:31 BMI result Body Mass Index 34.8 Tobacco/Smoking Status: Tobacco use Status Tobacco use date assessed 02/17/25 02/17/25 09:39 Patient Tobacco Use Status Current everyday Tobacco 02/17/25 09:45 Tobacco use type Cigarette 02/17/25 09:45 e-Cigarette/Vaping Use Never Used 02/17/25 09:48 PHQ-9: PHQ-9 Score PHQ-9: Total score 21 02/17/25 09:39 Depression Screening Interpretation: Positive Thrive Assessment: Date of Thrive Assessment Date Thrive assessed 02/17/25 02/17/25 09:39 Currently or been in a relationship where the following occur: Controlled Emotionally Const General: healthy appearing, no acute distress, alert and awake Nutritional Appearance: well nourished Orientation/consciousness: oriented to person, oriented to place and oriented to time HENMT Ears: TM's normal bilaterally General nose exam: Normal nasal mucous membranes and turbinates present Eyes Conjunctivae: conjunctivae normal Sclerae: sclerae normal Pupils: Equal, round and reactive pupils present Neck Neck: Yes no lymphadenopathy and Yes no JVD Thyroid: Thyroid normal Carotids: no bruits Resp Effort & Inspection: normal respiratory effort and not tachypneic Auscultation: no crackles, no rales, no rhonchi and no wheezes Cardio Rate: regular rate Rhythm: regular rhythm Heart sounds: no murmurs and normal S1 and S2 GI Palpation (GI): Soft to palpation, nontender, no hepatomegaly and no splenomegaly Auscultation: normal bowel sounds Skin General skin exam: no rashes or lesions noted and dry skin Neuro General: oriented to person, oriented to place and oriented to time Cranial nerves: Yes Equal, round and reactive pupils present Speech: No Abnormal speech present Gait exam (Neuro): Normal gait present Motor exam (neuro): no tremor noted Extrem Right upper extremity: full ROM Left upper extremity: full ROM Right lower extremity: full ROM; no edema Left lower extremity: full ROM; no edema Psych Mental Status: mental status grossly normal Speech and movement: Normal speech and movement present Affect: normal affect Attitude: cooperative Thought process: Normal thought process present Results Reviewed Results Reviewed: Laboratory Tests 01/23/25 01/25/25 01/26/25 04:36 09:25 19:05 WBC 10.3 RBC 4.76 Hgb 15.2 Hct 42.7 MCV 89.7 MCH 31.9 MCHC 35.6 RDW 13.2 Plt Count 285 Sodium 138 Potassium 3.6 Chloride 100 Carbon Dioxide 28 Anion Gap 14 BUN 14 Creatinine 0.97 Estim Creat Clear Calc 142.2 Estimated GFR > 60 Random Glucose 96 Estimat Average Glucose 103 Hemoglobin A1c % 5.2 Calcium 10.0 AST 70 H ALT 53 H Alkaline Phosphatase 52 Total Protein 7.2 Albumin 4.0 Triglycerides 147 Cholesterol 190 LDL Cholesterol, Calc 126 H HDL Cholesterol 35 L Vitamin B12 479 Folate 6.8 TSH 1.12 Urine Color Yellow Urine Appearance Clear Urine pH 5.5 Ur Specific [place] 1.025 Urine Protein Negative Urine Glucose (UA) Negative Urine Ketones 15 Urine Blood Negative Urine Nitrite Negative Ur Leukocyte Esterase Negative Coding Level of Care Code New Pt Level 4 (60928) Diagnoses Bipolar affective disorder, current episode manic, current episode severity unspecified F31.10 Active/Remission status: currently active Current bipolar episode type: manic Current episode severity: unspecified Cognitive disorder F09 Pure hypercholesterolemia E78.00 Hyperlipidemia type: pure hypercholesterolemia Elevated liver enzymes R74.8 Short-term memory loss R41.3 Additional Codes PARVIN-7 Assessment Billing - PARVIN-7 Assessment Tool: PARVIN-7 Assessment 38148 ([id number]) PHQ-9 - 06777 - PHQ-9 Billing: Yes ([id number]) Time Spent (min) 36 Assessment & Plan Assessment & Plan (1) Bipolar disorder: Code(s): F31.9 - Bipolar disorder, unspecified Category: Medical Qualifiers: Active/Remission status: currently active Current bipolar episode type: manic Current episode severity: unspecified Qualified Code(s): F31.10 - Bipolar disorder, current episode manic without psychotic features, unspecified (2) Cognitive disorder: Code(s): F09 - Unspecified mental disorder due to known physiological condition Category: Medical (3) HLD (hyperlipidemia): Code(s): E78.5 - Hyperlipidemia, unspecified Category: Medical Qualifiers: Hyperlipidemia type: pure hypercholesterolemia Qualified Code(s): E78.00 - Pure hypercholesterolemia, unspecified (4) Elevated liver enzymes: Code(s): R74.8 - Abnormal levels of other serum enzymes Category: Medical (5) Short-term memory loss: Code(s): R41.3 - Other amnesia Category: Medical Plan I will refer the patient for a neurological evaluation to explore the underlying causes of his memory impairment and its impact on his quality of life. He currently takes Depakote and Olanzapine. Dietary advice was provided to address dietary habits contributing to hypercholesterolemia, with three-month retesting recommended. I will monitor liver enzyme levels despite the absence of alcohol use. Discussed potential issues with SSI and recommended steps for potential appeals. Patient was informed and verbally consented to the use of an ambient scribe for clinic note documentation during this visit. Orders: Orders Complete Blood Count Auto Diff 3 Months VENICE Arteaga E78.5 - Hyperlipidemia, unspecified, F09 - Unspecified mental disorder due to known physiological condition, F14.10 - Cocaine abuse, uncomplicated, F31.9 - Bipolar disorder, unspecified, R74.8 - Abnormal levels of other serum enzymes Comprehensive [place]. Panel Fast 3 Months MELINDA ArteagaP-C E78.5 - Hyperlipidemia, unspecified, F09 - Unspecified mental disorder due to known physiological condition, F14.10 - Cocaine abuse, uncomplicated, F31.9 - Bipolar disorder, unspecified, R74.8 - Abnormal levels of other serum enzymes TSH reflex Free T4 3 Months MELINDA ArteagaP-C E78.5 - Hyperlipidemia, unspecified, F09 - Unspecified mental disorder due to known physiological condition, F14.10 - Cocaine abuse, uncomplicated, F31.9 - Bipolar disorder, unspecified, R74.8 - Abnormal levels of other serum enzymes UA CC w/rflx Micro + Cult 3 Months MITESH Arteaga-C E78.5 - Hyperlipidemia, unspecified, F09 - Unspecified mental disorder due to known physiological condition, F14.10 - Cocaine abuse, uncomplicated, F31.9 - Bipolar disorder, unspecified, R74.8 - Abnormal levels of other serum enzymes Valproate 3 Months MITESH Arteaga-C E78.5 - Hyperlipidemia, unspecified, F09 - Unspecified mental disorder due to known physiological condition, F14.10 - Cocaine abuse, uncomplicated, F31.9 - Bipolar disorder, unspecified, R74.8 - Abnormal levels of other serum enzymes Lipid Panel 3 Months MITESH Arteaga-C E78.5 - Hyperlipidemia, unspecified, F09 - Unspecified mental disorder due to known physiological condition, F14.10 - Cocaine abuse, uncomplicated, F31.9 - Bipolar disorder, unspecified, R74.8 - Abnormal levels of other serum enzymes Glucose Fasting 3 Months MELINDA ArteagaP-C E78.5 - Hyperlipidemia, unspecified, F09 - Unspecified mental disorder due to known physiological condition, F14.10 - Cocaine abuse, uncomplicated, F31.9 - Bipolar disorder, unspecified, R74.8 - Abnormal levels of other serum enzymes Vitamin D 25-OH Total 3 Months MELINDA ArteagaP-C E78.5 - Hyperlipidemia, unspecified, F09 - Unspecified mental disorder due to known physiological condition, F14.10 - Cocaine abuse, uncomplicated, F31.9 - Bipolar disorder, unspecified, R74.8 - Abnormal levels of other serum enzymes Medications: Changed From divalproex 1,500 mg (3 x 500 mg) PO BEDTIME 30 days 90 tabs 0RF To divalproex 1,500 mg PO BEDTIME Ad Monge MD
== END 2025-02-17 10:07 | disposition home or self-care (01) ==
LOC: HO.HMCH 09:30
DX: F31.10 Bipolar disorder, current episode manic without psychotic features, unspecified (principal); F09 Unspecified mental disorder due to known physiological condition; E78.00 Pure hypercholesterolemia, unspecified; R74.8 Abnormal levels of other serum enzymes; R41.3 Other amnesia

== ENCOUNTER → 2025-02-17 09:30 | Outpatient (BNVA) | payer MEDICARE, MEDICAID, SELFPAY | DX: F31.10 Bipolar disorder, current episode manic without psychotic features, unspecified (principal); F09 Unspecified mental disorder due to known physiological condition; E78.00 Pure hypercholesterolemia, unspecified; R74.8 Abnormal levels of other serum enzymes; R41.3 Other amnesia | CPT/HCPCS: 96127; 99202 ==

== ENCOUNTER 2025-06-03 22:44 | Inpatient (IN) | payer MEDICARE, MEDICAID, SELFPAY ==
--- NOTE | 2025-06-03 | ECG_ITS ---
Test Reason : CP Blood Pressure : */* mmHG Vent. Rate : 90 BPM Atrial Rate : 90 BPM P-R Int : 154 ms QRS Dur : 90 ms QT Int : 356 ms P-R-T Axes : 13 10 28 degrees QTcB Int : 435 ms Normal sinus rhythm Minimal voltage criteria for LVH, may be normal variant ( R in aVL ) Abnormal ECG When compared with ECG of 24-Jan-2025 13:42, No significant change was found Referred By: Waleska Giron Electronically Signed By: Ba Tenorio
--- NOTE | ~2025-06-03 | CT_ITS ---
CLINICAL HISTORY: abormal CXR, tachycardia, drug use CT chest without contrast Comparison: None provided Findings: The heart size is normal. No pericardial effusion. There is no pleural effusion. There is a right lower lobe ill-defined nodule or mass measuring approximately 3.0 cm in the peripheral right lower lobe. Additional areas of subsegmental atelectasis are present in the apical and posterior segments of the right lower lobe and in the left lower lobe. No additional lung nodules are present. Visualized osseous structures are normal. No hilar adenopathy. No mediastinal adenopathy. Thyroid gland is homogeneous. Axilla are normal. No acute osseous fractures. The visualized upper abdomen is unremarkable. No acute fractures. IMPRESSION: 1. Right lower lobe peripheral ill-defined 3.0 cm mass may represent neoplasm, sequelae of infection or inflammation, or pulmonary hemorrhage. Recommend follow-up to resolution to exclude neoplasm or follow via the Fleischner criteria. No adenopathy. 2. Subsegmental dependent atelectasis. This document has been electronically signed by: Mika Watts III, MD PHD on 06/04/2025 03:13:58
--- NOTE | ~2025-06-03 | XR_ITS ---
CLINICAL HISTORY: chest pain 1 view chest x-ray Comparison: CT - CT CHEST ANGIOGRAPHY WITH IV CONTRAST - 12/01/22 14:35 EST Findings: Low lung volumes are present. Cardiac and mediastinal silhouettes are normal. There is a left pleural effusion. Right costophrenic angle is blunted. No focal consolidative opacities. Peribronchovascular opacities are present centrally. No acute osseous fracture. IMPRESSION: 1. Left pleural effusion and prominent peribronchovascular opacities may represent sequelae of interstitial edema, inflammation, or pneumonitis. This document has been electronically signed by: Mika Watts III, MD PHD on 06/04/2025 00:16:36
[2025-06-03 22:47] VITALS: BP 144/78; PULSE 102; O2SAT 98
[2025-06-03 22:54] VITALS: BP 101/65; PULSE 106; RESP 20; TEMP 37.8; O2SAT 98; BMI 38.6
--- NOTE | 2025-06-03 23:00 | PC.NURSE ---
pt biba from home, a&ox4, respirations even and unlabored. pt reports smoking an rocio of crack and developing chest pain and shortness of breath. pt states he feels 'Like i am going to , ems gave 324 asprin and 0.4 of nitro. 18g in right hand. pt verbally aggressive with staff but cooperative. security at bedside for pattern changer and dr. butler at bedside
[2025-06-03 23:27] LABS: MANUAL DIFF FLAG NO
[2025-06-03 23:28] LABS: Hematocrit 42.9 % (42.0-52.0); Hemoglobin 15.6 g/dl (14.0-18.0); Imm Gran Abs Auto 0.06 X10*3/uL (0.00-0.03); Imm Gran Pct Auto 0.4 % (0.0-0.4); Lymphocytes Absolute Auto 2.2 X10*3/uL (1.2-4.9); Mean Corpuscular HGB Conc 36.4 g/dl (31.0-36.0); Mean Corpuscular Hemoglobin 32.9 pg (27.0-33.0); Mean Corpuscular Volume 90.5 fL (80.0-98.0); NRBC Abs Auto 0.000 X10*3/uL (0.0-0.012); NRBC Pct Auto 0.0 /100WBC (0.0-0.2); Platelet Count 282 X10*3/uL (160-400); Red Blood Count 4.74 X10*6/uL (4.60-5.80); White Blood Count 15.7 X10*3/uL (4.8-10.8)
[2025-06-03 23:44] LABS: Alanine Aminotransferase 26 U/L (0-40); Albumin Level 5.0 g/dL (3.5-5.0); Alkaline Phosphatase 53 U/L (39-117); Anion Gap 19 (12-20); Aspartate Amino Transferase 99 U/L (5-37); Blood Urea Nitrogen 29 mg/dL (9-16); Calcium 9.6 mg/dL (8.4-10.2); Carbon Dioxide 18 mmol/L (22-29); Chloride 100 mmol/L (96-108); Creatinine Clr Calc Pharmacy 83.1; Estimated Glomerular Filt Rate 47; Magnesium 2.1 mg/dL (1.6-2.6); Potassium 3.9 mmol/L (3.3-5.1); Sodium 133 mmol/L (135-145); Total Protein 8.2 g/dL (6.5-8.0)
[2025-06-03] MEDS: diazePAM 10 MG/2 ML CARTRIDGE 5 MG IVPUSH (23:46)
--- NOTE | 2025-06-03 23:46 | PC.NURSE ---
pt restless, walking around into other pt rooms and removing mattress off of bed, pt medicated per dec.
[2025-06-03 23:50] LABS: Troponin-I High Sensitivity 16.9 ng/L (<3.5-35.0)
--- NOTE | 2025-06-03 23:50 | ED_ITS ---
HPI - Chest Pain General Chief Complaint: Chest Pain Stated Complaint: SUBSTANCE USE, SOB, CP, ANXIOUS Time Seen by Provider: 06/03/25 22:50 Source: patient, EMS and old records reviewed Mode of arrival: EMS Limitations: other (under the influence - hyperverbal yelling) History of Present Illness ED Provider: ALFONSO HPI narrative: 39 yo male with PMH of HLD, cocaine use disorder, cognitive disorder, bipolar disorder who swears he is takin is medications. He admits to smoking crack for 30 years. He states tonight he smoked a nickel of crack then noted I almost they put fentanyl in it. He arrives agitated and yelling he told EMS he had chest pain but it appears he meant to say it was his heart pounding out of his chest. He states he doesn't carry narcan. He has no SI/HI. He denies head trauma. He is demanding water on arrival and fighting with security. He is very hyperverbal, won't put a shirt on, loud and pressured speech and seems to want to fight with staff. 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) Timing of current episode: now resolved Prior episodes: Yes Onset: associated with drug use Pain location: other Pain radiation: none Severity: moderate Quality: other Relieving factors: nothing Exacerbating factors: other (drug use) Context: other (recent drug use) Associated symptoms: nausea, sense of impending doom and palpitations Treatment prior to arrival: aspirin and nitroglycerin Related Data Home Medications ?Medication ?Instructions ?Recorded ?Confirmed divalproex 500 mg tablet,delayed 1,500 mg PO BEDTIME 0 02/17/25 02/17/25 release Previous Rx's ?Medication ?Instructions ?Recorded olanzapine 10 mg tablet 10 mg PO BEDTIME 30 days #30 tabs 01/30/25 Allergies Allergy/AdvReac Type Severity Reaction Status Date / Time haloperidol (From HALDOL) Allergy Unknown UNKNOWN Verified 06/03/25 22:56 Pork/Porcine Containing AdvReac Unknown Verified 06/03/25 22:56 Products Review of Systems 2 Review of Systems: Constitutional : No Fever, No Chills, No Fatigue ENT/Mouth : No sore throat, No Rhinorrhea Eyes: No Eye Pain, No Swelling, No Redness Cardiovascular : pos Chest Pain, No SOB, No Dyspnea on Exertion, pos palpitations Respiratory : No Cough, No Sputum Gastrointestinal : No Nausea, No Vomiting, No Diarrhea, No abdominal Pain Genitourinary : No Dysuria, No Urinary Frequency, No Hematuria, Musculoskeletal : No joint pain, No Myalgias, No Joint Swelling Skin : No Skin Lesions, No rash Neuro : No Weakness, No Numbness, No Dizziness, no Headache Psych : pos Anxiety/Panic, No Depression Heme/Lymph: No Bruising, No Bleeding,No Lymphadenopathy Endocrine : No Polyuria, No Polydipsia All other systems reviewed and are negative [facility] Past Medical History Attestation statement: The following information was validated with the patient. Source: old records reviewed Medical History Cocaine use disorder Bipolar 1 disorder Surgical History No pertinent past surgical history Family History Family History Father No problems noted. Mother No problems noted. Other FH: mental illness Social History Social History Household Members: Family Housing: House Do you presently have visiting nurse or other home services: No Alcohol intake: never Patient Tobacco Use Status: Current everyday Tobacco user Tobacco use type: Cigarette Cigarette Packs Per Day: 1 Cigarettes Per Day: 20 Years Smoked: 20 Smoked in Last 30 Days: No e-Cigarette/Vaping Use: Never Used Second Hand Smoke Exposure: No Use of substances other than those prescribed or required for medical reasons: Yes Substance Use Type: Crack/Cocaine Advance Directives: No Do you have a plan to hurt others: No Plan service: No Current occupational status: disabled Sexual orientation: Don't Know Cognitive needs: No Hearing needs: No Vision needs: No Physical Exam 2 Vital Signs: Vital Signs: Last Vital Signs Temp 97.6 F 06/04/25 02:47 Pulse 63 06/04/25 02:47 Resp 19 06/04/25 02:47 BP 108/73 06/04/25 02:47 Pulse Ox 100 06/04/25 02:47 O2 Del Method Room Air 06/04/25 02:47 BMI result Body Mass Index 38.6 Appearance: Alert. Oriented X3. No acute distress. Eyes: Pupils equal, round and reactive to light. ENT: Pharynx normal. atraumatic Neck: Normal inspection. Neck supple. CVS: Normal heart rate and rhythm. Pulses normal. Respiratory: No respiratory distress. Breath sounds diminished L side Abdomen: Soft and nontender. Skin: Skin warm and dry. Normal skin color. Normal skin turgor. Extremities: No lower extremity edema. No calf ttp Neuro: Oriented X 3. No motor deficit. No sensory deficit. CN2-12 intact Course Course Course Narrative: after review of labs he has elevated WBC count and some tachycardia initially felt to be related to drug use but now he has small opacity L lung will obtain cultures and lactic acid possible infection suspected Waleska Giron DO 06/04/25 0030 Reevaluation(s) Reevaluation #1: CPK elevated 2L of IVF ordered doing much better with 10mg IV valium Medications Administered Generic Name Dose Route Start Last Admin Trade Name Freq PRN Reason Stop Dose Admin Sodium Chloride 1,000 mls @ 200 mls/hr 06/04/25 02:00 06/04/25 02:25 Ns IVCONT 06/04/25 06:59 200 mls/hr .Q5H ELLIOT Administration Sodium Chloride 1,000 mls @ 150 mls/hr 06/04/25 02:30 06/04/25 03:02 Ns IVCONT Not Given .Q6H40M ELLIOT Discontinued Medications Generic Name Dose Route Start Last Admin Trade Name Freq PRN Reason Stop Dose Admin Ceftriaxone Sodium 1 gm 06/04/25 00:26 06/04/25 00:53 Ceftriaxone Sodium 1 Gm Vial IVPUSH 06/04/25 00:27 1 gm ONCE ONE Administration Diazepam 5 mg 06/03/25 23:37 06/03/25 23:46 Diazepam 10 Mg/2 Ml [place] IVPUSH 06/03/25 23:38 5 mg STAT STA Administration Diazepam 5 mg 06/04/25 00:26 06/04/25 00:35 Diazepam 10 Mg/2 Ml [place] IVPUSH 06/04/25 00:27 5 mg STAT STA Administration Lactated Ringer's 1,000 mls @ 999 mls/hr 06/03/25 23:45 06/04/25 01:30 Lr IV 06/04/25 00:45 Infused .Q1H1M ONE Infusion Lactated Ringer's 1,000 mls @ 999 mls/hr 06/03/25 23:46 06/04/25 01:30 Lr IV 06/04/25 00:46 Infused .Q1H1M ONE Infusion Lorazepam 2 mg 06/03/25 22:55 06/03/25 23:07 Lorazepam 1 Mg Tablet PO 06/03/25 22:56 2 mg ONCE ONE Administration Naloxone HCl 8 mg 06/03/25 22:56 06/04/25 02:28 Naloxone Hcl Nasal Take Home 4 Mg [place] NOSTRILALT 06/03/25 22:57 Not Given ONCE ONE Medical Decision Making Medical Decision Making MDM Narrative: 39 yo male with PMH of HLD, cocaine use disorder, cognitive disorder, bipolar disorder here with palpitations, anxiety, stating he is going to after smoking crack that he states had fentanyl in it. He is very agitated and has no chest pain but states his heart was coming out of his chest. He is hard to redirect. At this time will give boluses of IV valium until more calm, EKG, repeat trop, CXR. He has no head trauma. He denies SI I received sign-out from my colleague Dr. Giron CT scan shows a right lower lobe 3 cm mass versus neoplasm versus infection versus hemorrhage Results were discussed with Dr. Vivar from the Medicine team Patient being admitted Differential Diagnosis Differential Diagnoses: The differential diagnosis associated with the presentation includes drug abuse, bipolar disorder, rhabod Admission/Observation Consideration of admission/observation: Escalation of care including admission/observation considered admission for rhabdo Consult Healthcare Provider Management of the patient was discussed with: Hospitalist (will admit) Lab Data [facility] Lab Attestation statement: I reviewed the patient's lab results. 06/03/25 23:23 06/03/25 23:23 Labs: Lab Results 06/03/25 06/04/25 06/04/25 Range/Units 23:23 00:41 01:52 WBC 15.7 H (4.8-10.8) X10*3/uL RBC 4.74 (4.60-5.80) X10*6/uL Hgb 15.6 (14.0-18.0) g/dl Hct 42.9 (42.0-52.0) % MCV 90.5 (80.0-98.0) fL MCH 32.9 (27.0-33.0) pg MCHC 36.4 H (31.0-36.0) g/dl RDW 12.9 (11.0-16.0) % Plt Count 282 (160-400) X10*3/uL MPV 10.6 (9.4-12.4) fL Immature Gran % (Auto) 0.4 (0.0-0.4) % Neut % (Auto) 77.8 H (45-73) % Lymph % (Auto) 13.9 L (20-40) % [place] % (Auto) 7.6 (2-11) % Eos % (Auto) 0.1 (0-4) % Baso % (Auto) 0.2 (0-2) % Lymph # (Auto) 2.2 (1.2-4.9) X10*3/uL [place] # (Auto) 1.2 (0.1-1.2) X10*3/uL Eos # (Auto) 0.0 (0.0-0.4) X10*3/uL Baso # (Auto) 0.0 (0.0-0.2) X10*3/uL Abs Immat Gran (auto) 0.06 H (0.00-0.03) X10*3/uL Absolute Neuts (auto) 12.3 H (2.0-8.3) x10*3/uL Absolute Nucleated RBC 0.000 (0.0-0.012) X10*3/uL Nucleated RBC % (auto) 0.0 (0.0-0.2) /100WBC Sodium 133 L (135-145) mmol/L Potassium 3.9 (3.3-5.1) mmol/L Chloride 100 (96-108) mmol/L Carbon Dioxide 18 L (22-29) mmol/L Anion Gap 19 (12-20) BUN 29 H (9-16) mg/dL Creatinine 1.64 H (0.5-1.4) mg/dL Estim Creat Clear Calc 83.1 Estimated GFR 47 Random Glucose 119 H (60-115) mg/dL Lactic Acid 2.0 (0.5-2.0) mmol/L Calcium 9.6 (8.4-10.2) mg/dL Magnesium 2.1 (1.6-2.6) mg/dL Total Bilirubin 2.9 H (0.0-1.0) mg/dL Direct Bilirubin 0.6 H (0.0-0.5) mg/dL AST 99 H (5-37) U/L ALT 26 (0-40) U/L Alkaline Phosphatase 53 (39-117) U/L Total Creatine Kinase 4059 H (38-174) U/L Troponin I High Sens 16.9 D 13.7 (<3.5-35.0) ng/L Total Protein 8.2 H (6.5-8.0) g/dL Albumin 5.0 (3.5-5.0) g/dL Ethyl Alcohol < 10 mg/dL Independent Interpretation I performed an independent interpretation of an: EKG, Plain X-Ray (?LL opacity) and CT Scan Interpretation: Rate: 90 Rhythm: NSR [place]: normal Normal P waves. Normal DEAN. Normal QRS complex. ST T wave : normal no SHAKILA qTC: 435 prior studies: no acute ischemia The study has been interpreted contemporaneously by me. . Radiology Impression Discussion of test interpretation with radiology: I have reviewed the radiologist's reading. Radiologist Impression: The heart size is normal. No pericardial effusion. There is no pleural effusion. There is a right lower lobe ill-defined nodule or mass measuring approximately 3.0 cm in the peripheral right lower lobe. Additional areas of subsegmental atelectasis are present in the apical and posterior segments of the right lower lobe and in the left lower lobe. No additional lung nodules are present. Visualized osseous structures are normal. No hilar adenopathy. No mediastinal adenopathy. Thyroid gland is homogeneous. Axilla are normal. No acute osseous fractures. The visualized upper abdomen is unremarkable. No acute fractures. IMPRESSION: 1. Right lower lobe peripheral ill-defined 3.0 cm mass may represent neoplasm, sequelae of infection or inflammation, or pulmonary hemorrhage. Recommend follow-up to resolution to exclude neoplasm or follow via the Fleischner criteria. No adenopathy. 2. Subsegmental dependent atelectasis. Independent Historian Clinical information obtained from an independent historian. History obtained from or confirmed by: EMS External Record Review External record reviewed: Inpatient record and Outpatient record Social Determinants Patient?s care significantly limited by Social Determinants of Health including: Problems related to primary support group Critical Care Time Critical Care Time Critical Care Time: Yes Total Critical Care Time: 45 Attestation: repeat IV valium for anxiety/agitation due to cocaine abuse, repeat labs, IVF x 2L bolus, review of records, admission. I attest to this time spent taking care of the patient Discharge Plan Discharge Clinical Impression: Elevated liver enzymes, Elevated liver enzymes level due to cystic fibrosis, ANY (acute kidney injury) Cocaine intoxication Qualifiers: Complication of substance-induced condition: with unspecified complication Q ualified Code(s): F14.929 - Cocaine use, unspecified with intoxication, unspecified Rhabdomyolysis Qualifiers: Rhabdomyolysis type: non-traumatic Qualified Code(s): M62.82 - Rhabdomyolysis Patient Disposition: Admitted As Inpatient
[2025-06-03] MEDS: Lactated Ringers 1,000 ML 999 ML IV ×2 (23:56)
[2025-06-04] MEDS: diazePAM 10 MG/2 ML CARTRIDGE 5 MG IVPUSH (00:35)
--- NOTE | 2025-06-04 00:35 | PC.NURSE ---
pt continues to go into other pt rooms, get out of bed and try to walk around ed, security called to bedside an pt medicated per mar
[2025-06-04 00:54] VITALS: BP 119/78; PULSE 63; RESP 18; TEMP 37.2; O2SAT 95
[2025-06-04 01:04] VITALS: PULSE 64
[2025-06-04 02:00] VITALS: BP 114/80; PULSE 62; RESP 20
[2025-06-04 02:05] VITALS: BP 109/75; PULSE 61; RESP 16
[2025-06-04 02:10] VITALS: BP 111/72; PULSE 61; RESP 15
[2025-06-04 02:15] LABS: Troponin-I High Sensitivity 13.7 ng/L (<3.5-35.0)
[2025-06-04 02:47] VITALS: BP 108/73; PULSE 63; RESP 19; TEMP 36.4; O2SAT 100
[2025-06-04 03:02] LABS: Appearance Urine Clear; Glucose Urine UA Negative (Negative); PH 5.5 (5.0-9.0); Specific Gravity - Urine 1.020 (1.005-1.025)
--- NOTE | 2025-06-04 03:06 | PC.NURSE ---
pt resting in stretcher, no acute distress noted, pt cooperative at this time
[2025-06-04 03:12] LABS: Cannabinoid Screen Urine Not Detected (Not Detect)
--- NOTE | 2025-06-04 04:00 | P.HPHOSP_ITS ---
History of Present Illness Date of Service: 06/04/25 Attending physician on admission: Lorena Benjamin Chief Complaint: I felt like I was about to Stephani Lizarraga is a 39 y/o man with bipolar disorder and crack cocaine use who was brought to the emergency department after sudden onset of chest pain and shortness on breath following crack use earlier today. He was given aspirin and nitro by EMS. On evaluation, patient became verbally aggressive, repetitively insulting me and calling me a liar after I informed him that his urine drug screen was positive only for cocaine. He stated that the cocaine was tampered with fentanyl. I offered to show him the results on the computer but he refused. The patient continue making insulting and racist remarks toward me, specifically about me being [place]. Despite asking him multiple times to stop and to show respect, he persisted with verbal insults. He then became increasingly aggressive, at which point I removed myself from his room as I felt unsafe and uncomfortable. This events were witnessed by ED staff. The patient did not allow me to complete the interview or performed the physical examination. His vital signs are stable. Blood workup was remarkable for leukocytosis. There are no significant electrolyte imbalances except for mild hyponatremia. CO2 is 18, BUN 29 and creatinine 1.64. There is no lactic acidosis. Total bilirubin, direct bilirubin and AST are elevated. Total CK is 4059. Troponin 16.9 then 13.7. Urinalysis showed no UTI. Blood is negative. RBC no available. Urine drug screen is positive for cocaine. CXR showed left pleural effusion and prominent periventricular opacities may represent sequela or interstitial edema, inflammation or pneumonitis. Chest CT scan without IV contrast showed right lower lobe peripheral ill-defined 3 point cm mass may represent neoplasm, sequela of infection or inflammation of pulmonary hemorrhage. There are no adenopathies. ECG showed normal sinus rhythm without evidence of acute ischemia. ED tx: Ringer lactate 2 L bolus, Valium 10 mg IV, ceftriaxone 1 g IV, Ativan 2 mg p.o., naloxone 8 mg intranasal Review of Systems 2 Review of Systems: Unobtainable (see HPI) Yes Other [facility] Medical History Cocaine use disorder Bipolar 1 disorder Family History Father No problems noted. Mother No problems noted. Other FH: mental illness Surgical History No pertinent past surgical history Social History Household Members: Family Housing: House Do you presently have visiting nurse or other home services: No Alcohol intake: never Patient Tobacco Use Status: Current everyday Tobacco user Tobacco use type: Cigarette Cigarette Packs Per Day: 1 Cigarettes Per Day: 20 Years Smoked: 20 Smoked in Last 30 Days: No e-Cigarette/Vaping Use: Never Used Second Hand Smoke Exposure: No Use of substances other than those prescribed or required for medical reasons: Yes Substance Use Type: Crack/Cocaine Advance Directives: No Do you have a plan to hurt others: No Plan service: No Current occupational status: disabled Sexual orientation: Don't Know Cognitive needs: No Hearing needs: No Vision needs: No Meds Allergies Allergy/AdvReac Type Severity Reaction Status Date / Time haloperidol (From HALDOL) Allergy Unknown UNKNOWN Verified 06/03/25 22:56 Pork/Porcine Containing AdvReac Unknown Verified 06/03/25 22:56 Products Active Medications: Current Medications Acetaminophen (Acetaminophen 325 Mg Tablet) 650 mg PO Q6H PRN PRN Reason: Pain, Mild 1-3,fever,headache Sodium Chloride (Ns) 1,000 mls @ 200 mls/hr IVCONT .Q5H [facility] Stop: 06/04/25 06:59 Last Admin: 06/04/25 02:25 Dose: 200 mls/hr Sodium Chloride (Ns) 1,000 mls @ 150 mls/hr IVCONT .Q6H40M [facility] Last Admin: 06/04/25 03:02 Dose: Not Given Melatonin (Melatonin 3 Mg Tablet) 6 mg PO BEDTIME PRN PRN Reason: Insomnia Sodium Chloride (0.9 % Sodium Chloride Flush 3 Ml Syringe) 3 ml IVFLUSH QSHIFT [facility] Home Medications ?Medication ?Instructions ?Recorded ?Confirmed ?Last Taken ?Type divalproex 500 mg tablet,delayed 1,500 mg PO BEDTIME 0 02/17/25 02/17/25 Unknown History release Physical Exam 2 Vital Signs and Narrative: Vital Signs: Last Vital Signs Temp 97.6 F 06/04/25 02:47 Pulse 63 06/04/25 02:47 Resp 19 06/04/25 02:47 BP 108/73 06/04/25 02:47 Pulse Ox 100 06/04/25 02:47 O2 Del Method Room Air 06/04/25 02:47 BMI result Body Mass Index 38.6 Unobtainable (see HPI) Results Labs 06/03/25 23:23 06/03/25 23:23 Labs: Laboratory Results - last 24 hr 06/03/25 06/04/25 06/04/25 23:23 00:41 02:45 MCV 90.5 MCH 32.9 MCHC 36.4 H RDW 12.9 Plt Count 282 MPV 10.6 Immature Gran % (Auto) 0.4 Neut % (Auto) 77.8 H Lymph % (Auto) 13.9 L [place] % (Auto) 7.6 Eos % (Auto) 0.1 Baso % (Auto) 0.2 Lymph # (Auto) 2.2 [place] # (Auto) 1.2 Eos # (Auto) 0.0 Baso # (Auto) 0.0 Abs Immat Gran (auto) 0.06 H Absolute Neuts (auto) 12.3 H Absolute Nucleated RBC 0.000 Nucleated RBC % (auto) 0.0 Anion Gap 19 Estim Creat Clear Calc 83.1 Estimated GFR 47 Random Glucose 119 H Lactic Acid 2.0 Calcium 9.6 Magnesium 2.1 Total Bilirubin 2.9 H Direct Bilirubin 0.6 H AST 99 H ALT 26 Alkaline Phosphatase 53 Total Creatine Kinase 4059 H Total Protein 8.2 H Albumin 5.0 Urine Color Yellow Urine Appearance Clear Urine pH 5.5 Ur Specific [place] 1.020 Urine Protein Trace Urine Glucose (UA) Negative Urine Ketones Trace Urine Blood Negative Urine Nitrite Negative Ur Leukocyte Esterase Negative Urine Opiates Screen Not Detected Ur Buprenorphine Scrn Not Detected Ur Oxycodone Screen Not Detected Urine Methadone Screen Not Detected Urine Fentanyl Screen Not Detected Ur Barbiturates Screen Not Detected Ur Phencyclidine Scrn Not Detected Ur Amphetamines Screen Not Detected U Benzodiazepines Scrn Not Detected Urine Cocaine Screen POSITIVE H U Marijuana (THC) Screen Not Detected Ethyl Alcohol < 10 Assessment and Plan (1) Cocaine use disorder: Status: Acute (2) HLD (hyperlipidemia): Qualifiers: Hyperlipidemia type: pure hypercholesterolemia Qualified Code(s): E 78.00 - Pure hypercholesterolemia, unspecified Status: Acute (3) Rhabdomyolysis: Qualifiers: Rhabdomyolysis type: non-traumatic Qualified Code(s): M62.82 - Rhabdomyolysis Status: Acute Plan Stephani Lizarraga is a 39 y/o man presents with: Chest pain and shortness on breath following smoking crack today. ECG showed no acute ischemia. Troponin 16.9 --> 13.7. Continue aspirin. Check TTE. Cardiology consult. Acute kidney injury secondary to rhabdomyolysis. Continue IV fluids. Continue to monitor renal function and total CK. Right lower lobe peripheral ill-defined 3 cm mass: Neoplasm versus sequela infection versus inflammation versus pulmonary hemorrhage. Pulmonology consult. Crack use. Addiction Medicine consult. Code status: Full DVT prophylaxis: SCDs (?Pulmonary hemorrhage) Patient will need hospitalization for at least 2 midnights for acute ANY due to high doses for aggressive IV hydration and close monitoring of renal function. Quality Stroke Does the patient have a stroke diagnosis?: No VTE Prior VTE?: No VTE Risk Level:: Medical - moderate - high VTE Device Contraindication: Treatment Not Indicated VTE Drug Contraindication: N/A - Med Ordered
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
--- NOTE | 2025-06-04 05:26 | PC.NURSE ---
pt called this rn to room, pt states he does not want to stay. this rn explained to pt that he would be leaving ama, pt stated to this rn i have better things to do than to stay here , aware via [employer] [facility]
--- NOTE | 2025-06-04 05:49 | PC.NURSE ---
security and Carito ASENCIO at bedside explaining AMA to pt, pt states you people are liars, fuck out of here im not staying , pt removing iv lines and tele leads, pt refused vitals and to sign papers and continues to state fuck out of here . pt given clothes back from [place] and security remians at bedside
[2025-06-04 05:51] LABS: MANUAL DIFF FLAG NO
[2025-06-04 05:52] LABS: Hematocrit 41.6 % (42.0-52.0); Hemoglobin 14.6 g/dl (14.0-18.0); Imm Gran Abs Auto 0.04 X10*3/uL (0.00-0.03); Imm Gran Pct Auto 0.4 % (0.0-0.4); Lymphocytes Absolute Auto 3.0 X10*3/uL (1.2-4.9); Mean Corpuscular HGB Conc 35.1 g/dl (31.0-36.0); Mean Corpuscular Hemoglobin 32.0 pg (27.0-33.0); Mean Corpuscular Volume 91.2 fL (80.0-98.0); NRBC Abs Auto 0.000 X10*3/uL (0.0-0.012); NRBC Pct Auto 0.0 /100WBC (0.0-0.2); Platelet Count 238 X10*3/uL (160-400); Red Blood Count 4.56 X10*6/uL (4.60-5.80); White Blood Count 10.9 X10*3/uL (4.8-10.8)
[2025-06-04 06:23] LABS: Anion Gap 15 (12-20); Blood Urea Nitrogen 21 mg/dL (9-16); Calcium 8.8 mg/dL (8.4-10.2); Carbon Dioxide 27 mmol/L (22-29); Chloride 97 mmol/L (96-108); Creatinine Clr Calc Pharmacy 117.6; Estimated Glomerular Filt Rate > 60; Magnesium 2.2 mg/dL (1.6-2.6); Potassium 3.5 mmol/L (3.3-5.1); Sodium 135 mmol/L (135-145)
--- NOTE | 2025-06-04 06:46 | P.DS_ITS ---
DS: Providers Provider Date of Service: 06/04/25 Date of admission: 06/04/25 02:29 Date of discharge: 06/04/25 Primary care physician: Unknown Physician Admitting clinician: Lorena Benjamin Attending physician on admission: Lorena Benjamin Consults: 06/04/25 04:39 Consult to Cardiology Routine Consulting Provider: [facility] Reason for consultation: Chest pain. Has provider been notified: No Consult to Pulmonology Routine Consulting Provider: [facility] Reason for consultation: RLL mass: neoplasm vs infection/inflamation vs pulmonary hemorrhage Has provider been notified: No 06/04/25 04:42 Addiction Medicine Provider Routine Consulting Provider: Addiction Covering Reason for consultation: Crack use Has provider been notified: No DS: Diagnosis Discharge Diagnosis (1) Cocaine use disorder: Status: Acute (2) HLD (hyperlipidemia): Status: Acute (3) Rhabdomyolysis: Status: Acute DS: Summary Hospital Course Hospital Course: HPI: Stephani Lizarraga is a 39 y/o man with bipolar disorder and crack cocaine use who was brought to the emergency department after sudden onset of chest pain and shortness on breath following crack use earlier today. He was given aspirin and nitro by EMS. On evaluation, patient became verbally aggressive, repetitively insulting me and calling me a liar after I informed him that his urine drug screen was positive only for cocaine. He stated that the cocaine was tampered with fentanyl. I offered to show him the results on the computer but he refused. The patient continue making insulting and racist remarks toward me, specifically about me being [place]. Despite asking him multiple times to stop and to show respect, he persisted with verbal insults. He then became increasingly aggressive, at which point I removed myself from his room as I felt unsafe and uncomfortable. This events were witnessed by ED staff. The patient did not allow me to complete the interview or performed the physical examination. His vital signs are stable. Blood workup was remarkable for leukocytosis. There are no significant electrolyte imbalances except for mild hyponatremia. CO2 is 18, BUN 29 and creatinine 1.64. There is no lactic acidosis. Total bilirubin, direct bilirubin and AST are elevated. Total CK is 4059. Troponin 16.9 then 13.7. Urinalysis showed no UTI. Blood is negative. RBC no available. Urine drug screen is positive for cocaine. CXR showed left pleural effusion and prominent periventricular opacities may represent sequela or interstitial edema, inflammation or pneumonitis. Chest CT scan without IV contrast showed right lower lobe peripheral ill-defined 3 point cm mass may represent neoplasm, sequela of infection or inflammation of pulmonary hemorrhage. There are no adenopathies. ECG showed normal sinus rhythm without evidence of acute ischemia. ED tx: Ringer lactate 2 L bolus, Valium 10 mg IV, ceftriaxone 1 g IV, Ativan 2 mg p.o., naloxone 8 mg intranasal Patient abandoned the hospital against medical advised and refused to sign the AMA paperwork. Time spent discussing smoking cessation with patient: 3 to 10 minutes Time Attestation Discharge Coordination Time (in mins): 10 minutes Quality: Safe Use of Opioids Does Pt have an Active Cancer Diagnosis on the Problem List?: No Quality: Stroke Does the patient have a stroke diagnosis?: No Physical Exam 2 Exam: Exam: SEE HPI Vital Signs: Vital Signs: Last Vital Signs Temp 97.6 F 06/04/25 02:47 Pulse 63 06/04/25 02:47 Resp 19 06/04/25 02:47 BP 108/73 06/04/25 02:47 Pulse Ox 100 06/04/25 02:47 O2 Del Method Room Air 06/04/25 02:47 BMI result Body Mass Index 38.6 DS: Data Data Completed and Pending Labs on day of discharge: Laboratory Results - last 24 hr 06/03/25 06/04/25 06/04/25 23:23 00:41 01:52 WBC 15.7 H RBC 4.74 Hgb 15.6 Hct 42.9 MCV 90.5 MCH 32.9 MCHC 36.4 H RDW 12.9 Plt Count 282 MPV 10.6 Immature Gran % (Auto) 0.4 Neut % (Auto) 77.8 H Lymph % (Auto) 13.9 L [place] % (Auto) 7.6 Eos % (Auto) 0.1 Baso % (Auto) 0.2 Lymph # (Auto) 2.2 [place] # (Auto) 1.2 Eos # (Auto) 0.0 Baso # (Auto) 0.0 Abs Immat Gran (auto) 0.06 H Absolute Neuts (auto) 12.3 H Absolute Nucleated RBC 0.000 Nucleated RBC % (auto) 0.0 Sodium 133 L Potassium 3.9 Chloride 100 Carbon Dioxide 18 L Anion Gap 19 BUN 29 H Creatinine 1.64 H Estim Creat Clear Calc 83.1 Estimated GFR 47 Random Glucose 119 H Lactic Acid 2.0 Calcium 9.6 Magnesium 2.1 Total Bilirubin 2.9 H Direct Bilirubin 0.6 H AST 99 H ALT 26 Alkaline Phosphatase 53 Total Creatine Kinase 4059 H Troponin I High Sens 16.9 D 13.7 Total Protein 8.2 H Albumin 5.0 Urine Color Urine Appearance Urine pH Ur Specific [place] Urine Protein Urine Glucose (UA) Urine Ketones Urine Blood Urine Nitrite Ur Leukocyte Esterase Urine Opiates Screen Ur Buprenorphine Scrn Ur Oxycodone Screen Urine Methadone Screen Urine Fentanyl Screen Ur Barbiturates Screen Ur Phencyclidine Scrn Ur Amphetamines Screen U Benzodiazepines Scrn Urine Cocaine Screen U Marijuana (THC) Screen Ethyl Alcohol < 10 06/04/25 06/04/25 02:45 05:30 WBC 10.9 H RBC 4.56 L Hgb 14.6 Hct 41.6 L MCV 91.2 MCH 32.0 MCHC 35.1 RDW 12.9 Plt Count 238 MPV 10.8 Immature Gran % (Auto) 0.4 Neut % (Auto) 59.4 Lymph % (Auto) 27.6 [place] % (Auto) 11.9 H Eos % (Auto) 0.4 Baso % (Auto) 0.3 Lymph # (Auto) 3.0 [place] # (Auto) 1.3 H Eos # (Auto) 0.0 Baso # (Auto) 0.0 Abs Immat Gran (auto) 0.04 H Absolute Neuts (auto) 6.5 Absolute Nucleated RBC 0.000 Nucleated RBC % (auto) 0.0 Sodium 135 Potassium 3.5 Chloride 97 Carbon Dioxide 27 Anion Gap 15 BUN 21 H Creatinine 1.16 Estim Creat Clear Calc 117.6 Estimated GFR > 60 Random Glucose 90 Lactic Acid Calcium 8.8 D Magnesium 2.2 Total Bilirubin Direct Bilirubin AST ALT Alkaline Phosphatase Total Creatine Kinase Troponin I High Sens Total Protein Albumin Urine Color Yellow Urine Appearance Clear Urine pH 5.5 Ur Specific [place] 1.020 Urine Protein Trace Urine Glucose (UA) Negative Urine Ketones Trace Urine Blood Negative Urine Nitrite Negative Ur Leukocyte Esterase Negative Urine Opiates Screen Not Detected Ur Buprenorphine Scrn Not Detected Ur Oxycodone Screen Not Detected Urine Methadone Screen Not Detected Urine Fentanyl Screen Not Detected Ur Barbiturates Screen Not Detected Ur Phencyclidine Scrn Not Detected Ur Amphetamines Screen Not Detected U Benzodiazepines Scrn Not Detected Urine Cocaine Screen POSITIVE H U Marijuana (THC) Screen Not Detected Ethyl Alcohol Discharge Plan Discharge Patient Disposition: Left Against Medical Advice Discharge Diagnosis: ANY due to rhabdomyolysis, right lower lobe mass, chest pain Referrals: Physician,Unknown J [Primary Care Provider, Medical] - 1 Week Discharge Medications: No Action olanzapine 10 mg tablet 10 mg PO BEDTIME 30 Days Qty: 30 0RF divalproex 500 mg tablet,delayed release (DR/EC) 1,500 mg PO BEDTIME Discharge Orders: Discharge Order (Routine); Ordered 06/04/25 Ordered By: Lorena Benjamin Stand Alone Forms: Against Medical Advice Print Language: Bahraini Care Plan Goals: Left AMA Health Concerns: Left AMA Plan of Treatment: Left AMA Assessment: Left AMA Discharge Date/Time: 06/04/25 06:24
--- NOTE | 2025-06-04 06:50 | P.EN_ITS ---
Event Note Date of Service: 06/04/25 Event Note: went to ED to see pt as I was alerted he was going to leave AMA. He had already ripped out his IV and was taking off his tele leads. he was standing at the end of the bed agitated. we discussed that he would be leaving AMA as he has a pending consultation for abnormalities on his chest CT and need further monitoring for ANY and rhabdo, which if untreated could lead to further kidney damage, organ failure and . pt stated that he feels better now and he is l eaving. he used profanities and told me to leave the room. he refused to sign AMA paperwork. pt was escorted out by security. Time Spent With Patient Time: Total time managing care of this patient today ____ minutes.
== END 2025-06-04 06:24 | disposition left against medical advice (07) | DRG 918 ==
LOC: HO.ED 06-04 02:16 → HO.EDOVER 06-04 02:32
PROVIDERS: Emergency Medicine; Admitting Provider Internal Medicine; Emergency Provider Emergency Medicine; Visit Provider Internal Medicine
DX: T40.5X1A Poisoning by cocaine, accidental (unintentional), initial encounter (principal); M62.82 Rhabdomyolysis; N17.9 Acute kidney failure, unspecified; E87.1 Hypo-osmolality and hyponatremia; F31.9 Bipolar disorder, unspecified; R91.1 Solitary pulmonary nodule; F14.10 Cocaine abuse, uncomplicated; Z79.899 Other long term (current) drug therapy
CPT/HCPCS: 36415; 71045; 71250; 80048; 80076; 80307; 81003; 82550; 83605; 83735; 84484; 85025; 87040; 93005; 99285; J0696; J3360; J7120

== ENCOUNTER → 2025-06-03 22:55 | Outpatient (BNV) | payer MEDICARE, MEDICAID, SELFPAY | PROVIDERS: Emergency Provider Emergency Medicine; Visit Provider Radiology Diagnostic Radiology | DX: J90 Pleural effusion, not elsewhere classified (principal) | CPT/HCPCS: 71045 ==

== ENCOUNTER → 2025-06-03 22:59 | Outpatient (BNV) | payer MEDICARE, MEDICAID, SELFPAY | PROVIDERS: Admitting Provider Internal Medicine; Emergency Provider Emergency Medicine; Visit Provider Internal Medicine Cardiovascular Disease | DX: R94.31 Abnormal electrocardiogram [ECG] [EKG] (principal); R07.9 Chest pain, unspecified | CPT/HCPCS: 93010 ==

== ENCOUNTER → 2025-06-04 00:26 | Outpatient (BNV) | payer MEDICARE, MEDICAID, SELFPAY | PROVIDERS: Admitting Provider Internal Medicine; Emergency Provider Emergency Medicine; Visit Provider Radiology Diagnostic Radiology | DX: R91.1 Solitary pulmonary nodule (principal) | CPT/HCPCS: 71250 ==

== ENCOUNTER → 2025-06-04 02:29 | Outpatient (BNV) | payer MEDICARE, MEDICAID, SELFPAY | PROVIDERS: Admitting Provider Internal Medicine; Emergency Provider Emergency Medicine; Visit Provider Internal Medicine | DX: F14.10 Cocaine abuse, uncomplicated (principal); E78.00 Pure hypercholesterolemia, unspecified; M62.82 Rhabdomyolysis | CPT/HCPCS: 99223; 99499 ==

== ENCOUNTER 2025-06-05 18:47 | Emergency (ER) | payer MEDICARE, MEDICAID, SELFPAY ==
[2025-06-05 19:03] VITALS: BP 144/74; PULSE 79; RESP 18; TEMP 36.6; O2SAT 97; BMI 25.0
--- NOTE | 2025-06-05 19:06 | ED_ITS ---
HPI - General Adult General Chief complaint: ETOH/Substance Use Stated complaint: twice Time Seen by Provider: 06/05/25 23:05 Source: patient Mode of arrival: ambulatory Limitations: no limitations History of Present Illness ED Provider: Cade ASENCIO HPI narrative: The patient is a 39-year-old male presenting to the ED reporting a history of crack cocaine dependency, reports he recently relapsed on crack and almost overdose twice. The patient reports he last used cocaine yesterday, presents to the ED requesting detox. The patient denies any acute somatic complaint, denies suicidal or homicidal ideation, or auditory or visual hallucinations. Related Data Home Medications ?Medication ?Instructions ?Recorded ?Confirmed divalproex 500 mg tablet,delayed 1,500 mg PO BEDTIME 0 02/17/25 02/17/25 release Previous Rx's ?Medication ?Instructions ?Recorded olanzapine 10 mg tablet 10 mg PO BEDTIME 30 days #30 tabs 01/30/25 Allergies Allergy/AdvReac Type Severity Reaction Status Date / Time haloperidol (From HALDOL) Allergy Unknown UNKNOWN Verified 06/05/25 19:07 Pork/Porcine Containing AdvReac Unknown Verified 06/05/25 19:07 Products Review of Systems 2 Review of Systems: Yes all other systems are reviewed and are negative PMFSH Past Medical History Medical History Cocaine use disorder Bipolar 1 disorder Surgical History No pertinent past surgical history Family History Family History Father No problems noted. Mother No problems noted. Other FH: mental illness Social History Social History Household Members: Family Housing: House Do you presently have visiting nurse or other home services: No Alcohol intake: never Patient Tobacco Use Status: Never used Tobacco Tobacco use type: Cigarette Cigarette Packs Per Day: 1 Cigarettes Per Day: 20 Years Smoked: 20 Smoked in Last 30 Days: Yes e-Cigarette/Vaping Use: Never Used Second Hand Smoke Exposure: No Use of substances other than those prescribed or required for medical reasons: Yes Substance Use Type: Crack/Cocaine Advance Directives: No Advance Directives Information Provided: No Do you have a plan to hurt others: No Plan service: No Current occupational status: disabled Sexual orientation: Don't Know Cognitive needs: No Hearing needs: No Vision needs: No Physical Exam ED Vital Signs: Vital Signs - 24 hr 06/05/25 19:03 06/06/25 00:03 Temperature 97.9 F 97.9 F Pulse Rate 79 60 Respiratory Rate 18 Blood Pressure 144/74 H 101/60 Pulse Oximetry 97 98 Oxygen Delivery Method Room Air Room Air BMI result Body Mass Index 25.0 CONSTITUTIONAL: The patient appears non-toxic, well nourished and in no acute distress. Vital signs as documented. HEAD: Atraumatic, normocephalic. EYES: EOMs grossly intact, pupils equal, conjunctiva clear, no exudate. ENT: Nares patent, no discharge. Airway patent, no audible stridor, visible mucosa is pink and moist without noted lesions. NECK: Trachea is midline, no obvious masses or gross abnormalities. CHEST: Symmetric movement, normal appearance. LUNGS: LS present and CTAB, no w/r/r. Non-labored work of breathing. CARDIAC: Regular Rhythm, S1/S2 appreciated, no murmurs, rubs or gallops. ABDOMEN: Abdomen soft and non-tender x4 quadrants, no palpable masses or organomegaly. : Deferred. EXTREMITIES: Normal tone, moves all extremities spontaneously without reported pain. No obvious acute injury or deformity noted. NEURO: Alert and oriented x3, CN II-XII appear grossly intact. Cerebellar Functioning grossly intact. No obvious sensory or motor deficits. Speech clear and appropriate. PSYCH: Moderately agitated affect, appropriate eye contact, with pressured and occasionally stuttering speech, but with otherwise appropriate response to questioning. No reported suicidality or homicidality. Patient does not appear to be responding to internal stimuli. SKIN: Warm, dry, color appropriate, normal turgor. No rashes noted. Course Course Course Narrative: MEDICAL SCREENING EXAM PERFORMED. PLEASE REFER TO DETAILED HISTORY, EXAM, EVALUATION, AND MANAGEMENT BY PRIMARY PROVIDER. Patient requesting detox from Crack. No SI/HI. JS Reevaluation(s) Reevaluation #1: Time: 09:01 Date: 06/06/25 Provider: Waleska Giron DO Physician observation ended at 9am Patient has been cleared for discharge by the CARE team. Will follow up as an outpatient. to go to [facility] this AM Medications Administered Discontinued Medications Generic Name Dose Route Start Last Admin Trade Name Nora PRN Reason Stop Dose Admin Acetaminophen 975 mg 06/06/25 02:59 06/06/25 08:03 Acetaminophen 325 Mg Tablet PO 06/06/25 03:00 Not Given ONCE ONE Ondansetron HCl 4 mg 06/06/25 03:01 06/06/25 08:03 Ondansetron Odt 4 Mg Tab.Rapdis TRANSLINGU 06/06/25 03:02 Not Given ONCE ONE Potassium Chloride 40 meq 06/06/25 00:50 06/06/25 08:03 Potassium Chloride Er 20 Meq Tab.Er.Prt PO 06/06/25 00:51 40 meq ONCE ONE Administration Medical Decision Making Medical Decision Making [facility] Narrative: 11:54 PM 06/05/2025 (Ariella ASENCIO): The patient is a 39-year-old male presenting to the ED for evaluation of crack cocaine dependency with recent relapse and multiple recent overdoses. The patient is without acute somatic complaint in the ED today, exam is benign. The patient was ordered for recovery team consultation during triage process. Recovery team has seen the patient and we will attempt to admit the patient to [facility] detox center. Patient will require laboratory workup and urine toxicology to facilitate detox admission. We will obtain. Admission/Observation Consideration of admission/observation: Escalation of care including admission/observation considered Lab Data [facility] Lab Attestation statement: I reviewed the patient's lab results. 06/05/25 23:38 06/05/25 23:38 Labs: Lab Results 06/05/25 06/06/25 Range/Units 23:38 00:21 WBC 11.8 H (4.8-10.8) X10*3/uL RBC 4.15 L (4.60-5.80) X10*6/uL Hgb 13.7 L (14.0-18.0) g/dl Hct 37.5 L (42.0-52.0) % MCV 90.4 (80.0-98.0) fL MCH 33.0 (27.0-33.0) pg MCHC 36.5 H (31.0-36.0) g/dl RDW 12.9 (11.0-16.0) % Plt Count 217 (160-400) X10*3/uL MPV 10.1 (9.4-12.4) fL Immature Gran % (Auto) 0.3 (0.0-0.4) % Neut % (Auto) 57.3 (45-73) % Lymph % (Auto) 29.4 (20-40) % [place] % (Auto) 11.9 H (2-11) % Eos % (Auto) 0.8 (0-4) % Baso % (Auto) 0.3 (0-2) % Lymph # (Auto) 3.5 (1.2-4.9) X10*3/uL [place] # (Auto) 1.4 H (0.1-1.2) X10*3/uL Eos # (Auto) 0.1 (0.0-0.4) X10*3/uL Baso # (Auto) 0.0 (0.0-0.2) X10*3/uL Abs Immat Gran (auto) 0.03 (0.00-0.03) X10*3/uL Absolute Neuts (auto) 6.8 (2.0-8.3) x10*3/uL Absolute Nucleated RBC 0.000 (0.0-0.012) X10*3/uL Nucleated RBC % (auto) 0.0 (0.0-0.2) /100WBC Sodium 131 L (135-145) mmol/L Potassium 3.1 L (3.3-5.1) mmol/L Chloride 95 L (96-108) mmol/L Carbon Dioxide 24 (22-29) mmol/L Anion Gap 15 (12-20) BUN 22 H (9-16) mg/dL Creatinine 1.01 (0.5-1.4) mg/dL Estim Creat Clear Calc 116.1 Estimated GFR > 60 Random Glucose 100 (60-115) mg/dL Calcium 8.7 (8.4-10.2) mg/dL Total Bilirubin 3.6 H (0.0-1.0) mg/dL AST 97 H (5-37) U/L ALT 31 (0-40) U/L Alkaline Phosphatase 45 (39-117) U/L Total Protein 7.1 (6.5-8.0) g/dL Albumin 4.4 (3.5-5.0) g/dL Urine Color Yellow Urine Appearance Clear Urine pH 6.5 (5.0-9.0) Ur Specific [place] 1.010 (1.005-1.025) Urine Protein Negative (Neg-Trace) mg/dL Urine Glucose (UA) Negative (Negative) mg/dL Urine Ketones Negative (Negative) mg/dL Urine Blood Negative (Negative) Urine Nitrite Negative (Negative) Ur Leukocyte Esterase Negative (Negative) Salicylates < 5.0 L (15-30) mg/dL Urine Opiates Screen Not Detected (Not Detect) Ur Buprenorphine Scrn Not Detected (Not Detect) ng/mL Ur Oxycodone Screen Not Detected (Not Detect) ng/mL Urine Methadone Screen Not Detected (Not Detect) ng/mL Urine Fentanyl Screen Not Detected (Not Detect) Acetaminophen < 3 (<30) mcg/mL Ur Barbiturates Screen Not Detected (Not Detect) Ur Phencyclidine Scrn Not Detected (Not Detect) Ur Amphetamines Screen Not Detected (Not Detect) U Benzodiazepines Scrn Not Detected (Not Detect) Urine Cocaine Screen POSITIVE H (Not Detect) U Marijuana (THC) Screen Not Detected (Not Detect) Ethyl Alcohol < 10 mg/dL Discharge Plan Discharge Clinical Impression: Cocaine use disorder Patient Disposition: Home, Self-Care Instructions: Cocaine Use Disorder (ED) Additional Instructions: FROM YOUR RECENT HOSPITALIZATION WHEN YOU WERE ADMITTED YOUR CT SCAN SHOWS AN AREA ON THE RIGHT LOWER LUNG - YOU NEED TO GET A REPEAT CT SCAN IN 3 MONTHS THAT WOULD BE IN AUGUST. THIS COULD BE AN OLD AREA OF INFECTION OR SCAR WILL NEED TO REPEAT CT SCAN TO ASSESS. You were seen in our Emergency Department today for treatment of a behavioral health issue. It is important after your visit that you follow up with either your behavioral health provider or a primary care doctor within 7 days.? If you have trouble finding a therapist you can reach out to [address] [phone] The National Suicide and Crisis Lifeline can be reached 7 days a week 24 hours a day.? Call 988 to speak with someone.? Return for any worsening symptoms or concerns such as thoughts of self harm or harm to others. Please call 911 if you feel your mental health is worsening.? Prescriptions: No Action olanzapine 10 mg tablet 10 mg PO BEDTIME 30 Days Qty: 30 0RF divalproex 500 mg tablet,delayed release (DR/EC) 1,500 mg PO BEDTIME Print Language: Bulgarian
[2025-06-05 23:44] LABS: Hematocrit 37.5 % (42.0-52.0); Hemoglobin 13.7 g/dl (14.0-18.0); Imm Gran Abs Auto 0.03 X10*3/uL (0.00-0.03); Imm Gran Pct Auto 0.3 % (0.0-0.4); Lymphocytes Absolute Auto 3.5 X10*3/uL (1.2-4.9); MANUAL DIFF FLAG NO; Mean Corpuscular HGB Conc 36.5 g/dl (31.0-36.0); Mean Corpuscular Hemoglobin 33.0 pg (27.0-33.0); Mean Corpuscular Volume 90.4 fL (80.0-98.0); NRBC Abs Auto 0.000 X10*3/uL (0.0-0.012); NRBC Pct Auto 0.0 /100WBC (0.0-0.2); Platelet Count 217 X10*3/uL (160-400); Red Blood Count 4.15 X10*6/uL (4.60-5.80); White Blood Count 11.8 X10*3/uL (4.8-10.8)
[2025-06-06 00:03] VITALS: BP 101/60; PULSE 60; TEMP 36.6; O2SAT 98
[2025-06-06 00:27] LABS: Appearance Urine Clear; Glucose Urine UA Negative (Negative); PH 6.5 (5.0-9.0); Specific Gravity - Urine 1.010 (1.005-1.025)
--- NOTE | 2025-06-06 00:32 | PC.NURSE ---
PT noted to be standing in the hallway with ming wrapped around him asking for assistance with the buttons of the arms as the gown was not together. the pt was alert, calm and cooperative without distress noted and offering no complaints. RN asked the pt to return to his stretcher at which time he complied and remained. Careteam to bedside for eval for detox clearance/facility. Pt up to nearby restroom for UA and Utox sample at which time he ambulated with a slow steady gait with a slight limp noted as he reports 10/10 right foot pain. The pt is also noted to intermittently spit into an emesis bag as he reports nausea. PA made aware and new orders for SL Zofran and 975mg of tylenol requested to assist with the patients currents symptoms while staff are awaiting the results of his Urinalysis.
[2025-06-06 00:37] LABS: Cannabinoid Screen Urine Not Detected (Not Detect)
[2025-06-06 00:47] LABS: Acetaminophen LAB < 3 mcg/mL (<30); Alanine Aminotransferase 31 U/L (0-40); Albumin Level 4.4 g/dL (3.5-5.0); Alkaline Phosphatase 45 U/L (39-117); Anion Gap 15 (12-20); Aspartate Amino Transferase 97 U/L (5-37); Blood Urea Nitrogen 22 mg/dL (9-16); Calcium 8.7 mg/dL (8.4-10.2); Carbon Dioxide 24 mmol/L (22-29); Chloride 95 mmol/L (96-108); Creatinine Clr Calc Pharmacy 116.1; Estimated Glomerular Filt Rate > 60; Potassium 3.1 mmol/L (3.3-5.1); Salicylate < 5.0 mg/dL (15-30); Sodium 131 mmol/L (135-145); Total Protein 7.1 g/dL (6.5-8.0)
--- NOTE | 2025-06-06 06:15 | PC.NURSE ---
The pt has been resting comfortably in stretcher throughout the night without issue and/or needs at this time. He was previously offered a sleep mask to aid in eliminating light and allowing for a more peaceful rest in the [place] but he declined. the pt has been noted to have his head covered by blanket, respirations are even and unlabored and there are no s/s of distress noted. The pt has been medically cleared and was assessed by caretearm earlier in the night. At this time per careteam assessment the pt is recommened for acute treatment services. Morning careteam to be consulted to determine what next steps are for the pt's detox needs/desires
[2025-06-06] MEDS: Potassium Chloride ER 20 MEQ TAB.ER.PRT 40 MEQ PO (08:03)
--- NOTE | 2025-06-06 09:06 | MHC.CARE ---
Pt will be sent in a Lyft to [facility] for detox services. ED provider in agreement.
== END 2025-06-06 09:16 | disposition home or self-care (01) ==
PROVIDERS: Physician Assistant; Emergency Provider Emergency Medicine
DX: F14.90 Cocaine use, unspecified, uncomplicated (principal); F31.9 Bipolar disorder, unspecified; Z79.899 Other long term (current) drug therapy
CPT/HCPCS: 36415; 80053; 80143; 80179; 80307; 81003; 85025; 99284; S9485

== ENCOUNTER 2025-06-22 09:35 | Outpatient (AMB) | payer MEDICARE, MEDICAID, SELFPAY ==
[2025-06-22 09:42] VITALS: BP 122/66; PULSE 60; RESP 18; TEMP 36.3; O2SAT 98; BMI 37.0
--- NOTE | 2025-06-22 09:42 | A.OFFPC_ITS ---
Vital Signs 06/22/25 09:42 Height 6 ft 3 in Weight 296 lb 6 oz BMI 37.0 BP 122/66 Blood Pressure Location Lt brachial Position Sitting Respiration 18 Pulse 60 Pulse Source Pulse Oximeter Temp 97.3 F Temp Source Temporal Artery Scan Pulse Oximetry (%) 98 Oxygen Delivery Method Room Air Intake Visit Reasons: hld/elevated liver enzymes Relish Blender Required: No Accompanied by: Self / Same As Patient Allergies haloperidol (From HALDOL) Allergy (Unknown, Verified 06/22/25 09:49) UNKNOWN Pork/Porcine Containing Products Adverse Reaction (Verified 06/22/25 09:49) Unknown Medication List - Last Reconciled 06/22/25 by VENICE Arteaga divalproex 1,500 mg PO BEDTIME olanzapine 10 mg PO BEDTIME 30 days Tobacco use date assessed: 06/22/25 Dental Screening Dental Screen Date: 06/22/25 Did you have a dental visit in the last 12 months?: No Did you have a dental problem in the last 6 months where you did not have access to dental care?: No Was dental information given to patient?: No HPI hld/elevated liver enzymes HPI Details 39-year-old man with bipolar disorder an d cocaine use the patient was seen in the emergency room on 06/04/2025 to onset of chest pain and shortness of Breath. He was given aspirin and nitro by EMS on evaluation he was verbally aggressive towards the provider when he was informed that his urine was positive for cocaine. He is here today for follow up appointment for chronic conditions Reports that he is feeling okay no issues Labs done in the hospital reviewed with the patient Noted that his potassium and sodium was below goal Reports that he continues to have memory difficulties As for his new psychiatrist, reports that he was in rehab and has an upcoming appointment Denies chest pain, shortness of breath, heart palpitation or dizziness Denies abdominal pain or change in bowel habits Denies urinary symptoms PFSH Medical History Cocaine use disorder Bipolar 1 disorder Surgical History No pertinent past surgical history Family History Father No problems noted. Mother No problems noted. Other FH: mental illness Social History Household Members: Family Housing: House Do you presently have visiting nurse or other home services: No Alcohol intake: never Patient Tobacco Use Status: Never used Tobacco Tobacco use type: Cigarette Cigarette Packs Per Day: 1 Cigarettes Per Day: 20 Years Smoked: 20 e-Cigarette/Vaping Use: Never Used Second Hand Smoke Exposure: No Substance Use Type: Crack/Cocaine service: No Current occupational status: disabled Sexual orientation: Don't Know Cognitive needs: No Hearing needs: No Vision needs: No Questionnaire PHQ-9 Over the last 2 weeks, how often have you been bothered by any of the following problems? 1. Little interest or pleasure in doing things: not at all 2. Feeling down, depressed, or hopeless: nearly every day 3. Trouble falling or staying asleep, or sleeping too much: more than half the days 4. Feeling tired or having little energy: several days 5. Poor appetite or overeating: nearly every day 6. Feeling bad about yourself - or that you are a failure or have let yourself or your family down: nearly every day 7. Trouble concentrating on things, such as reading the newspaper or watching television: nearly every day 8. Moving or speaking so slowly that other people could have noticed. Or the opposite - being so fidgety or restless that you have been moving around a lot more than usual: nearly every day 9. Thoughts that you would be better off or of hurting yourself in some way: nearly every day Total score: 21 Depression Screening Interpretation: Positive Depression Screening Done: Yes Source: Developed by Drs. Rolando Melo, Faviola Hi, Maco Spangler and colleagues, with an educational juan jose from [employer]. Thrive Questionnaire Date Thrive assessed: 06/22/25 I am a: Patient What is your living situation today?: I have a place to live, but I am worried about losing it in the future Within the past 12 months, did the food you bought not last and you didn't have the money to get more?: Often true Within the past 12 months, did you worry whether your food would run out before you got money to buy more?: Often true Do you have trouble paying for medicines?: No Do you have trouble getting transportation to medical appointments?: Yes Do you have trouble paying your heating and electricity bill?: Yes Do you have trouble taking care of your child, family member or friend?: I choose not to answer this question Do you have trouble with day-to-day activities such as bathing, preparing meals, shopping, managing finances, etc.?: No Are you currently unemployed and looking for a job?: No Are you interested in more education?: No Please select the resources that you would like help with: Daily support Currently or been in a relationship where the following occur: Controlled Emotionally THRIVE Score: 6 AUDIT C Alcohol Use Questionnaire (AUDIT-C) 3. How often do you have six or more drinks on one occasion?: Never Total Score: 0 PARVIN-7 AMB Questionnaire PARVIN-7 Date PARVIN - 7 assessed: 06/22/25 Feeling nervous, anxious, or on edge: 1 = Several days Not being able to stop or control worryin = Nearly every day Worrying too much about different things: 3 = Nearly every day Trouble relaxin = Nearly every day Being so restless that it is hard to sit still: 3 = Nearly every day Becoming easily annoyed or irritable: 3 = Nearly every day Feeling afraid as if something awful might happen: 3 = Nearly every day Total PARVIN-7 score (0-4 normal; 5-9 mild; 10-14 moderate; 15-21 severe): 19 Source: Developed by Drs. Rolando Melo, Faviola Hi, Maco Spangler and colleagues, with an educational juan jose from [employer]. Review of Systems Const Denies body aches, Denies chills, Denies fever(s), Denies headache(s) and Denies poor appetite Eyes Reports no additional complaints ENT Denies dysphagia, Denies dizziness, Denies headache(s) and Denies odynophagia Card Denies chest pain, Denies syncope, Denies edema, Denies irregular heart rhythm, Denies lightheadedness and Denies dyspnea Resp Denies cough and Denies dyspnea GI Denies abdominal pain, Denies constipation, Denies dysphagia, Denies diarrhea, Denies nausea, Denies odynophagia and Denies vomiting Reports no additional complaints Musc Reports no additional complaints and Denies abnormal gait Skin/Breast Reports system reviewed and no additional complaints, except as documented Neuro Denies abnormal gait, Denies dizziness, Denies syncope and Denies headache(s) Psych Reports no additional complaints Physical exam (Primary Care) Vital Signs: Last Vital Signs Temp 97.3 F 06/22/25 09:42 Pulse 60 06/22/25 09:42 Resp 18 06/22/25 09:42 BP 122/66 06/22/25 09:42 Pulse Ox 98 06/22/25 09:42 Oxygen Delivery Method Room Air 06/22/25 09:42 BMI result Body Mass Index 37.0 Tobacco/Smoking Status: Tobacco use Status Tobacco use date assessed 06/22/25 06/22/25 09:49 Patient Tobacco Use Status Never used Tobacco 06/22/25 09:49 Tobacco use type Cigarette 06/22/25 09:49 e-Cigarette/Vaping Use Never Used 06/22/25 09:49 PHQ-9: PHQ-9 Score PHQ-9: Total score 21 06/22/25 09:49 Depression Screening Interpretation: Positive Thrive Assessment: Date of Thrive Assessment Date Thrive assessed 06/22/25 06/22/25 09:49 Currently or been in a relationship where the following occur: Controlled Emotionally Const General: cooperative, healthy appearing, comfortable and no acute distress Orientation/consciousness: patient oriented x3 HENMT Head: Yes normocephalic Ears: hearing grossly normal bilaterally General nose exam: Normal external nose present Eyes General: appearance normal, both eyes and all related structures Conjunctivae: conjunctivae normal Pupils: Equal, round and reactive pupils present Neck Neck: Yes full ROM and Yes no lymphadenopathy Resp Effort & Inspection: normal respiratory effort Auscultation: clear to auscultation bilaterally, no crackles, no rales, no rhonchi and no wheezes Cardio Rate: regular rate Rhythm: regular rhythm Skin General skin exam: no rashes or lesions noted Neuro General: patient oriented x3 and CN's II-XI intact bilaterally Cranial nerves: Yes Equal, round and reactive pupils present and Yes Nystagmus not present Gait exam (Neuro): Normal gait present Romberg Test: Negative Extrem General: Yes normal to inspection, Yes full ROM and No edema Psych Affect: normal affect Attitude: cooperative Insight: Good insight present (Psych) Judgement: Good judgement present (Psych) Results Reviewed Results Reviewed: Laboratory Tests 06/05/25 06/06/25 23:38 00:21 Sodium 131 L Potassium 3.1 L Chloride 95 L Carbon Dioxide 24 Anion Gap 15 BUN 22 H Creatinine 1.01 Estim Creat Clear Calc 116.1 Estimated GFR > 60 Random Glucose 100 Calcium 8.7 Total Bilirubin 3.6 H AST 97 H ALT 31 Alkaline Phosphatase 45 Total Protein 7.1 Albumin 4.4 Urine Color Yellow Urine Appearance Clear Urine pH 6.5 Ur Specific Champion 1.010 Urine Protein Negative Urine Glucose (UA) Negative Urine Ketones Negative Urine Blood Negative Urine Nitrite Negative Ur Leukocyte Esterase Negative Coding Level of Care Code Est Pt Level 3 (54706) Diagnoses Bipolar affective disorder, current episode manic, current episode severity unspecified F31.10 Active/Remission status: currently active Current bipolar episode type: manic Current episode severity: unspecified Cocaine use disorder F14.10 Pure hypercholesterolemia E78.00 Hyperlipidemia type: pure hypercholesterolemia Elevated liver enzymes R74.8 Short-term memory loss R41.3 Hyponatremia E87.1 Hypokalemia E87.6 Time Spent (min) 36 Assessment & Plan Assessment & Plan (1) Bipolar disorder: Code(s): F31.9 - Bipolar disorder, unspecified Category: Medical Qualifiers: Active/Remission status: currently active Current bipolar episode type: manic Current episode severity: unspecified Qualified Code(s): F31.10 - Bipolar disorder, current episode manic without psychotic features, unspecified Plan: Continue divalproex 1500mg po bedtime, olanzapine 10 mg po bedtime Follow up with Psychiatry as scheduled (2) Cocaine use disorder: Code(s): F14.10 - Cocaine abuse, uncomplicated Category: Medical Plan: The patient urine was positive for cocaine on his previous hospital visit. Although the patient vowed that he is not using anymore. Encouraged cessation. (3) HLD (hyperlipidemia): Code(s): E78.5 - Hyperlipidemia, unspecified Category: Medical Qualifiers: Hyperlipidemia type: pure hypercholesterolemia Qualified Code(s): E78.00 - Pure hypercholesterolemia, unspecified Plan: Triglycerides 147, total cholesterol 190, LDL 126, HDL 35 on 01/26/2025 Discussed lifestyle modifications including dietary changes and physical activity Encouraged the patient to complete preordered follow up labs tatiana to further evaluate (4) Elevated liver enzymes: Code(s): R74.8 - Abnormal levels of other serum enzymes Category: Medical Plan: AST 95 Limit alcohol/drugs containing Tylenol/fatty foods/lose weight We will re-evaluate (5) Short-term memory loss: Code(s): R41.3 - Other amnesia Category: Medical Plan: Reports short-term memory issues No focal deficit noted on exam Neurology referral placed (6) Hyponatremia: Code(s): E87.1 - Hypo-osmolality and hyponatremia Category: Medical Plan: The patient labs a day before is low results was normal. Encouraged the patient to complete preordered labs to further evaluate (7) Hypokalemia: Code(s): E87.6 - Hypokalemia Category: Medical Plan: Similarly the patient labs before the day before was normal. Encouraged the patient to go get blood work done as soon as he can to further evaluate. In the meantime eats foods that are high in potassium. Orders: Referrals Neurology Referral R41.3 - Other amnesia
--- OUTSIDE RECORDS SUMMARY | 2025-06-22 10:29 | XMS_ITS | Clinical Summary ---
Author Organization [facility] Address [address] [place] [id number] Phone Care Team Providers Care Associate Relations Specialist Name Role Phone Pcp, Not Required Primary Care Provider Unavaila ble Allergies Active Allergy Reactions Criticality Noted Date Comments Haloperidol Lactate Unknown 08/13/2020 Medications ARIPiprazole (ABILIFY) 15 MG tablet Take 1 tablet (15 mg total) by mouth daily. 30 tablet 01/31/2023 Active divalproex (DEPAKOTE) [address] tablet Take 5 tablets (1,250 mg total) by mouth daily AND 6 tablets (1,500 mg total) nightly at bedtime. 330 tablet 01/31/2023 Active Active Problems No known active problems Social History Tobacco Use Types Packs/Day Years Used Date Smoking Tobacco: Every Day Cigarettes Smokeless Tobacco: Never Tobacco Cessation:Ready to Q uit: Not Asked; Counseling Given: Not Answered Alcohol Use Standard Drinks/Week Comments Not Currently 0 (1 standard drink = 0.6 oz pur e alcohol) Education Answer Date Recorded Are you interested in more education? Not on alexander e 02/14/2023 Are you concerned about learning? Not on file 02/14/2023 No 02/14/2023 No 02/14/2023 Digital Access Answer Date Recorded No 03/14/2023 No 03/14/2023 Reliable internet access at home? Not on file 03/14/2023 Device with a working camera? Not on file Intimate Partner Violence Answer Date R ecorded Are you denied basic needs s uch as food, clothing, or medical care? No 03/30/2023 In the past 12 months have y ou been in a relationship with a person who hurts, threatens, or tries to control you? No 03/30/2023 Are you denied basic needs s uch as food, clothing, or medical care? No 03/30/2023 In the past 12 months have y ou been in a relationship with a person who hurts, threatens, or tries to control you? No 03/30/2023 Sex and Gender Information Value Date Recorded Sex Assigned at Male 04/19/2020 9:35 PM EDT Legal Sex Male 9:16 PM EDT Gender Identity Male 04/19/2020 9:35 PM EDT Sexual Orientation Straight 04/19/2020 9: 35 PM EDT Last Filed Vital Signs Vital Sign Reading Time Taken Comments Blood Pressure 114/67 03/30/2023 8:48 PM EDT Pulse 74 03/30/2023 8:48 PM EDT Temperature 36.9 C (98.4 F) 03/30/2023 8:48 PM EDT Respiratory Rate 18 03/30/2023 8:48 PM EDT Oxygen Saturation 95% 03/30/2023 8:48 PM EDT Inhaled Oxygen Concentration - - Weight 152 kg (335 lb) 03/30/2023 8:48 PM EDT Height 190.5 cm (6' 3 ) 03/30/2023 8:48 PM EDT Body Mass Index 41.87 03/30/2023 8:48 PM EDT Plan of Treatment Health Maintenance Due Date Last Done Comments Adult Td,Tdap Booster 1984 LIPID PANEL 1984 DEPRESSION SCREENING 1996 SMOKING Hx and SMOKELESS TOB ACCO SCREENING 1997 HEPATITIS C SCREENING 2002 HIV ONE-TIME SCREENING (18-6 5 YEARS) 2002 PNEUMOCOCCAL VACCINES (0-49 years) (1 of 2 - PCV) 2003 INFLUENZA VACCINE (#1) 2025 COVID-19 VACCINE (2 - 2024-2 6 season) 2025 01/19/2021 SCREENING FOR DIABETES 03/30/2026 03/30/2023 HEPATITIS A VACCINES Aged Out No long er eligible based on patient's age to complete this topic HIB VACCINES Aged Out No longer eligi ble based on patient's age to complete this topic MENINGOCOCCAL VACCINES (ACWY) Aged Out No longer eligible based on patient's age to complete this topic MENINGOCOCCAL VACCINES (B) Aged Out N o longer eligible based on patient's age to complete this topic Medical Devices Not on file Insurance MEDICARE PART A & B [facility] MEDICARE PART A & B Member Subscriber Plan / Payer (Ef fective 2018-Present) Name:Stephani Longo Member ID:[id number] Relation to Subscriber:Self Name:Stephani Longo Subscriber ID:[id number] Payer ID:[id number] Group ID:Not on file Type:Medicare Address: [employer] [address] [place] A [place] [employer] MEDICARE PART A & B [facility] MED[facility]ARE PART A & [facility] Care Teams Associate Relations Specialist Relationship Specialty Start Date End Date Pcp, Not Required [address] [place] [id number] PCP - General 11/27/22 Additional Source Comments The information contained in this document represents components of the legal health record. It is not the complete legal health record.[facility]
== END 2025-06-22 10:05 | disposition home or self-care (01) ==
LOC: HO.HMCH 09:36
DX: F31.10 Bipolar disorder, current episode manic without psychotic features, unspecified (principal); F14.10 Cocaine abuse, uncomplicated; E78.00 Pure hypercholesterolemia, unspecified; R74.8 Abnormal levels of other serum enzymes; R41.3 Other amnesia; E87.1 Hypo-osmolality and hyponatremia; E87.6 Hypokalemia

== ENCOUNTER → 2025-06-22 09:35 | Outpatient (BNVA) | payer MEDICARE, MEDICAID, SELFPAY | DX: F31.10 Bipolar disorder, current episode manic without psychotic features, unspecified (principal); F14.10 Cocaine abuse, uncomplicated; E78.00 Pure hypercholesterolemia, unspecified; R74.8 Abnormal levels of other serum enzymes; R41.3 Other amnesia; E87.1 Hypo-osmolality and hyponatremia; E87.6 Hypokalemia | CPT/HCPCS: 96127; 99212 ==

== ENCOUNTER 2025-07-13 06:14 | Outpatient (REF) | payer MEDICARE, MEDICAID, SELFPAY ==
--- OUTSIDE RECORDS SUMMARY | 2025-07-13 06:19 | XMS_ITS | Clinical Summary ---
Author Organization [facility] Address [address] [place] [phone] Phone Care Team Providers Care Nautical Instrument Mechanic Name Role Phone Pcp, Not Required Primary [...] file Insurance MEDICARE PART A & B [facility] MEDICARE PART A & B Member Subscriber Plan / Payer (Ef fective 2018-Present) Name:Stephani Longo Member ID:[id number] Relation to Subscriber:Self Name:Stephani Longo Subscriber ID:[id number] Payer ID:[id number] Group ID:Not on file Type:Medicare Address: [employer] [address] [place] A & [place] [employer] MEDICARE PART A & B [facility] PART A & [facility] Care Teams Nautical Instrument Mechanic Relationship Specialty Start Date End Date Pcp, Not Required [address] [place] [id number] PCP - General 11/27/22 Additional Source Comments The information contained in this document represents components of the legal health record. It is not the complete legal health record.[facility]
[2025-07-13 06:30] LABS: MANUAL DIFF FLAG NO
[2025-07-13 07:45] LABS: Hematocrit 46.1 % (42.0-52.0); Hemoglobin 15.8 g/dl (14.0-18.0); Imm Gran Abs Auto 0.02 X10*3/uL (0.00-0.03); Imm Gran Pct Auto 0.3 % (0.0-0.4); Lymphocytes Absolute Auto 3.8 X10*3/uL (1.2-4.9); Mean Corpuscular HGB Conc 34.3 g/dl (31.0-36.0); Mean Corpuscular Hemoglobin 32.6 pg (27.0-33.0); Mean Corpuscular Volume 95.1 fL (80.0-98.0); NRBC Abs Auto 0.000 X10*3/uL (0.0-0.012); NRBC Pct Auto 0.0 /100WBC (0.0-0.2); Platelet Count 235 X10*3/uL (160-400); Red Blood Count 4.85 X10*6/uL (4.60-5.80); White Blood Count 6.9 X10*3/uL (4.8-10.8)
[2025-07-13 08:13] LABS: Appearance Urine Clear; Glucose Urine UA Negative (Negative); PH 7.5 (5.0-9.0); Specific Gravity - Urine 1.010 (1.005-1.025)
[2025-07-13 08:16] LABS: Alanine Aminotransferase 19 U/L (0-40); Albumin Level 4.1 g/dL (3.5-5.0); Alkaline Phosphatase 44 U/L (39-117); Anion Gap 12 (12-20); Aspartate Amino Transferase 37 U/L (5-37); Blood Urea Nitrogen 6 mg/dL (9-16); Calcium 9.4 mg/dL (8.4-10.2); Carbon Dioxide 27 mmol/L (22-29); Chloride 103 mmol/L (96-108); Cholesterol 217 mg/dL (<200); Estimated Glomerular Filt Rate > 60; HDL Cholesterol 35 mg/dL (>40); Potassium 3.7 mmol/L (3.3-5.1); Sodium 138 mmol/L (135-145); Total Protein 6.8 g/dL (6.5-8.0); Triglycerides 187 mg/dL (<150)
== END 2025-07-13 06:15 | disposition home or self-care (01) ==
LOC: HO.LAB 06:14
DX: R74.8 Abnormal levels of other serum enzymes (principal); F09 Unspecified mental disorder due to known physiological condition; F14.10 Cocaine abuse, uncomplicated; F31.9 Bipolar disorder, unspecified; E78.5 Hyperlipidemia, unspecified
CPT/HCPCS: 36415; 80053; 80061; 80164; 81003; 82306; 84443; 85025

== ENCOUNTER 2025-09-06 10:06 | Outpatient (AMB) | payer MEDICARE, MEDICAID, SELFPAY ==
--- NOTE | 2025-09-06 10:34 | A.OFFVIS_ITS ---
Intake Visit Reasons: difficulty with his short term memory Allergies haloperidol (From HALDOL) Allergy (Unknown, Verified 06/22/25 09:49) UNKNOWN Pork/Porcine Containing Products Adverse Reaction (Verified 06/22/25 09:49) Unknown HPI Comments Details: This is a 40-year-old man with a 20 year history of bipolar disorder who is here with his mother for neurological evaluation. When he was a child, he suffered from epilepsy with generalized convulsions triggered by flashing lights and strobe lights, and was on medications from the age of 4-11. He has had no further seizures since then. He has a maternal uncle and 2 brothers who have bipolar disorder. He has not worked in the last 20 years. In the last 5 years, he was also been using crack cocaine and marijuana but apparently has been clean since January 2025 although his urine cocaine test on June 04, 2025 were still positive. His father lives separately as he is from his mother and travels between [place] and [place]. The patient had a CT scan of the brain on 01/26/2025 but was read as normal, however, on my review there is significant cortical atrophy particularly in the temporal lobes. He spends most of his time at home with his mother playing poker on the phone and sometimes visits his father to help with his medicines. He has spatial orientation problems and can not go beyond 3 blocks without getting lost. He stopped driving 3 years ago. He is having a great deal of problem with short-term memory but even his remote memory is not that good and he does not remember the [place] and could not remember where he went to high school. Recent lab work was unremarkable except for elevated cholesterol levels. His TSH and vitamin-D levels were normal. His current medications are olanzapine 10 mg and Depakote 750 mg at night. [facility] Medical History Cocaine use disorder Bipolar 1 disorder Surgical History No pertinent past surgical history Family History Father No problems noted. Mother No problems noted. Other FH: mental illness Social History Household Members: Family Housing: House Do you presently have visiting nurse or other home services: No Alcohol intake: never Patient Tobacco Use Status: Never used Tobacco Tobacco use type: Cigarette Cigarette Packs Per Day: 1 Cigarettes Per Day: 20 Years Smoked: 20 e-Cigarette/Vaping Use: Never Used Second Hand Smoke Exposure: No Substance Use Type: Crack/Cocaine service: No Current occupational status: disabled Sexual orientation: Don't Know Cognitive needs: No Hearing needs: No Vision needs: No Review of Systems Const Details: Sleep problems Reports weight gain Neuro Reports memory loss and Reports convulsions Psych Reports depression and Reports memory loss Physical Exam Neuro Other: ?Mini Mental Status Exam Level of Consciousness:?Alert.? Orientation:?Knows correct month, and season.?Knows correct city, county and state. Knows correct location and floor.? Registration:?Able to register 3 objects.? Attention:?Serial 7's with difficulty ? Recall:?Able to recall 0 out of 3 objects.? Language:?Normal spontaneous speech, fluency, repetition, naming, comprehension, reading, and writing.? Total Score:?20/30.? Neurological Abnormal neurological findings:??MMS 20/30.? Mental Status:?Alert and oriented X Month only, and place.?Normal attention, flat affect.? Cranial Nerves:?Pupils are equal, round and reactive to light. Fundoscopy shows normal disc bilaterally. External occular muscles are intact. Visual zamorano are full, no ptosis. Face is symmetrical, no facial weakness or droop. Facial sensations are normal. Tongue protrudes in midline. Palate elevates symmetrically. Shoulder shrugging is normal.? Motor Examination:?Normal muscle tone, bulk and strength.?No atrophy or fasciculations.?No drift of the extended upper extremities.?Deep tendon reflexes are 2+.?Plantars are flexor.? Motor Strength:? Proximal Muscles (out of 5):?5 Distal Muscles (out of 5):?5 Neck Flexors (out of 5):?5 Neck Extensors (out of 5):?5 Deltoid (out of 5):?5 Biceps (out of 5):?5 Triceps (out of 5):?5 Serratus Anterior (out of 5):?5 Wrist Extensors (out of 5):?5 APB (out of 5):?5 Finger Spread (out of 5):?5 Ileopsoas (out of 5):?5 Quadriceps (out of 5):?5 Hamstrings (out of 5):?5 Tibialis Anterior (out of 5):?5 Peronei (out of 5):?5 EDB (out of 5):?5 Gastrocnemius (out of 5):?5 Straight Leg Raising:?90 degrees.? Sensory Exam:?Normal light touch, temperature, pinprick, vibration and joint-position sensations.?Rhomberg sign is absent.? Coordination:?No ataxia,?no titubation,?parylt-yl-pebe, fwvm-ulet-uuem test, and rapid alternating movements were normal.? Gait Exam:?Within normal limits.? Cerebellar Signs:?Xfccgw-oa-zboq and twqv-bq-xwpo is normal.?No dysdiadochokinesia.? Extrapyramidal System:?No tremor or?rigidity, normal facial expressions.?No bradykinesia. No bradyphrenia. Normal arm swing and posture. No propulsion or retropulsion.? Speech:?Normal,?no dysphasia or dysarthria.? General Examination GENERAL APPEARANCE:??normal,?in no acute distress?,?normal,?in no acute distress.? HEAD:??normocephalic,?atraumatic.? EYES:??sclera non-icteric,?conjunctiva clear.? EARS:??auditory canal clear,?tympanic membrane intact, clear.? NOSE:??no lesions.? ORAL CAVITY:??gums normal,?mucosa moist,?no lesions.? THROAT:??clear.? NECK/THYROID:??no cervical lymphadenopathy,?thyroid normal,?neck supple, full range of motion,?no carotid bruit.? SKIN:??no rashes,?no significant birthmarks.? HEART:??S1, S2 normal,?no murmurs?,?S1, S2 normal,?no murmurs.? LUNGS:??clear anteriorly and posteriorly?,?clear anteriorly and posteriorly.? CHEST:??no gross rib deformity,?clear to auscultation.? BACK:??normal exam of spine.? MUSCULOSKELETAL:??normal.? EXTREMITIES:??no edema?,?no edema.? PERIPHERAL PULSES:??normal.? PSYCH:??alert, oriented,?cognitive function intact,?cooperative with exam?,?alert, oriented,?cognitive function intact,?cooperative with exam.? Assessment & Plan Assessment & Plan (1) Cognitive disorder: Comment: Obvious significant dementia Code(s): F09 - Unspecified mental disorder due to known physiological condition Category: Medical (2) Short-term memory loss: Code(s): R41.3 - Other amnesia Category: Medical (3) Bipolar disorder: Code(s): F31.9 - Bipolar disorder, unspecified Category: Medical Qualifiers: Active/Remission status: currently active Current bipolar episode type: manic Current episode severity: unspecified Qualified Code(s): F31.10 - Bipolar disorder, current episode manic without psychotic features, unspecified (4) Seizure disorder: Code(s): G40.909 - Epilepsy, unspecified, not intractable, without status epilepticus Category: Medical Plan MMSA and MOCA, MRI brain, EEG Orders: Orders EEG Routine Today F09 - Unspecified mental disorder due to known physiological condition, R41.3 - Other amnesia MR head/brain wo con 4 Weeks F09 - Unspecified mental disorder due to known physiological condition, R41.3 - Other amnesia Coding Level of Care Code New Pt Level 5 (57595) Diagnoses Cognitive disorder F09 Short-term memory loss R41.3 Bipolar affective disorder, current episode manic, current episode severity unspecified F31.10 Active/Remission status: currently active Current bipolar episode type: manic Current episode severity: unspecified Seizure disorder G40.909
== END 2025-09-06 10:54 | disposition home or self-care (01) ==
LOC: HO.HSM 10:06
PROVIDERS: Visit Provider Psychiatry & Neurology Neurology
DX: R41.89 Other symptoms and signs involving cognitive functions and awareness (principal); R41.3 Other amnesia; F31.10 Bipolar disorder, current episode manic without psychotic features, unspecified; G40.909 Epilepsy, unspecified, not intractable, without status epilepticus
CPT/HCPCS: 99204

== ENCOUNTER → 2025-09-06 10:06 | Outpatient (BNVA) | payer MEDICARE, MEDICAID, SELFPAY | PROVIDERS: Visit Provider Psychiatry & Neurology Neurology | DX: F09 Unspecified mental disorder due to known physiological condition (principal); R41.3 Other amnesia; F31.10 Bipolar disorder, current episode manic without psychotic features, unspecified; G40.909 Epilepsy, unspecified, not intractable, without status epilepticus; F14.20 Cocaine dependence, uncomplicated | CPT/HCPCS: 99202 ==

== ENCOUNTER 2025-09-29 19:11 | Outpatient (REF) | payer MEDICARE, MEDICAID, SELFPAY ==
--- NOTE | ~2025-09-29 | MR_ITS ---
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 COMPARISON: Correlated to CT dated January 25, 2025 TECHNIQUE: MRI of the brain was obtained using routine sequences without contrast. FINDINGS: No restricted diffusion. No acute intracranial hemorrhage, mass effect, midline shift, hydrocephalus or herniation. Tompkins-white matter differentiation is normal. Posterior cranial fossa contents demonstrated no acute hemorrhage or mass effect. Normal position of the cerebellar tonsils. Prominence of the extra-axial CSF spaces cerebral sulci and ventricles pronounced at the frontotemporal lobes. No signal abnormality in the hippocampi. Flow-void signal within the main cerebral vessels is normal. Sellar/suprasellar region demonstrated no signal abnormality or masses. There is an 18 mm intrinsic hyperintense T1 signal in the sphenoid sinus. Mucosal thickening in the paranasal sinuses. Retention cyst, left maxillary sinus. Increased T2 FLAIR signal in the left mastoid. MR/MR head/brain wo con IMPRESSION: No acute brain abnormality. Bifrontal bitemporal lobe atrophy. Signal abnormality in the sphenoid sinus. Recommend direct inspection. Electronically signed by: Abraham Milan MD 09/30/2025 06:41 AM NOAM
--- OUTSIDE RECORDS SUMMARY | 2025-09-29 23:33 | XMS_ITS | Clinical Summary ---
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 [place] B [employer] MED[facility]ARE PART A & B [facility] MEDICARE PART A & [facility] Care Teams Lockstitch Lining Setter Relationship Specialty Start Date End Date Pcp, Not Required PCP - General 11/27/22 Additional Source Comments The information contained in this document represents components of the legal health record. It is not the complete legal health record.[facility]
== END 2025-09-29 19:12 | disposition home or self-care (01) ==
LOC: HO.MRI 19:11
PROVIDERS: Visit Provider Psychiatry & Neurology Neurology
DX: R41.3 Other amnesia (principal); F09 Unspecified mental disorder due to known physiological condition
CPT/HCPCS: 70551

== ENCOUNTER → 2025-09-29 19:15 | Outpatient (BNV) | payer MEDICARE, MEDICAID, SELFPAY | PROVIDERS: Visit Provider Radiology Diagnostic Radiology | DX: F09 Unspecified mental disorder due to known physiological condition (principal); G31.9 Degenerative disease of nervous system, unspecified | CPT/HCPCS: 70551 ==